=== PATIENT | female | born 1975 | race Caucasian/White ===

== ENCOUNTER → 2017-07-10 11:12 | Outpatient (CLI) | payer MEDICARE, SELFPAY ==
[2017-07-10 12:04] LABS: Absolute Lymphocyte Count 1.81 X10^3/ul (0.83-4.51); Absolute Neutrophil Count 4.5 X10^3/uL (2.0-7.7); Basophil# 0.02 X10^3/uL; Basophil% 0.3 % (0-1); Eosinophil# 0.09 X10^3/uL; Eosinophils% 1.3 % (0-5); Hematocrit 42.6 % (37-47); Hemoglobin 14.5 g/dl (12.0-15.0); Lymphocyte # 1.81 X10^3/ul (4.0); Lymphocyte % 26.2 % (19-41); Mean Corpuscular Hgb 31.9 pg (27.0-32.0); Mean Corpuscular Volume 93.6 fL (81-99); Mean Platelet Vol. 9.9 fl (6.2-12.0); Monocyte% 7.2 % (0-10); Neutrophil # 4.45 X10^3/uL (2.7-7.7); Neutrophil % 64.4 % (47-70); Platelet Count 217 K/mm3 (150-450); RBC Distribution Width CV 12.8 % (11.6-14.6); RBC Distribution Width SD 42.8 fl (35.1-43.9); Red Blood Count 4.55 M/mm3 (4.2-5.4); White Blood Count 6.9 K/mm3 (4.4-11.0)
[2017-07-10 12:06] LABS: POSITIVE COUNT NO; POSITIVE DIFFERENTIAL NO; POSITIVE MORPHOLOGY NO
[2017-07-10 12:23] LABS: ALB/GLOB Ratio 0.8 RATIO (0.9-2.4); AST(SGOT) 31 U/L (15-37); Alanine Aminotransfer ALT/SGPT 88 U/L (13-56); Albumin, Serum 3.6 g/dL (3.2-5.0); Alkaline Phosphatase 139 U/L (45-117); Amylase 40 U/L (25-115); Anion Gap 8 (5-15); BUN 12 mg/dL (7-18); BUN/Creat Ratio 12.3 RATIO (10-20); Chloride 108 mmol/L (98-107); Creatinine, Serum 0.97 mg/dL (0.55-1.02); EST Glomerular Filtration Rate 66 mL/min (>60); Est Glom Filt Rate - Afr Amer 80 mL/min (>60); Globulin 4.3 g/dL (2.2-4.2); Glucose 89 mg/dL (70-110); Lipase 192 U/L (73-393); Potassium 3.6 mmol/L (3.5-5.1); Protein, Total 7.9 g/dL (6.4-8.2); Sodium Level 141 mmol/L (136-145)
== END ==
PROVIDERS: Family Provider Family Medicine; PCP Family Medicine; Visit Provider Family Medicine
DX: R10.11 Right upper quadrant pain (principal)
CPT/HCPCS: 80053; 82150; 83690; 85025

== ENCOUNTER → 2017-07-17 17:24 | Outpatient (CLI) | payer MEDICARE, SELFPAY ==
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
== END ==
PROVIDERS: Family Provider Family Medicine; PCP Family Medicine; Visit Provider Family Medicine
DX: R10.11 Right upper quadrant pain (principal)
CPT/HCPCS: 74160; 74177; Q9967

== ENCOUNTER 2017-07-25 10:00 | Outpatient (RCR) | payer MEDICARE, SELFPAY ==
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
--- NOTE | 2017-08-30 08:17 | HP.PTDCNRP_ITS ---
HP - Discharge Summary (1) - Patient Information KAYLIN LOBO was seen in my office for initial evaluation on 07/10/17. The following Plan of Care was established for this patient: Initial Frequency: 2x /Week Initial Duration: 4 Weeks - Anticipated Interventions Patient/Client Instruction: Educate patient on: Condition, Plan of Care For the Purpose of:: To decrease pain, To increase ROM, To improve muscle performance and motor function, To improve ability to perform ADL's, To increase tolerance to activity/condition/position, To improve ability of physical actions for home/community/work/leisure, To improve gait and locomotor functions, To improve health of tissue, To decrease soft tissue restriction, To increase flexibility/ROM, To improve ability to perform tasks related to life management Therapeutic Exercise to Include: Strength training, Body mechanics, Postural training, Flexibilty training, Dynamic Lumbar Stabilization For the Purpose of:: To decrease pain, To increase ROM, To improve muscle performance and motor function, To increase tolerance to activity/condition/ position, To improve performance and independence with ADL's, To improve ability of physical actions for home/community/work/leisure, To improve health of tissue, To decrease soft tissue restriction, To increase flexibility/ROM, To assume or resume ADL's, To improve ability to perform tasks related to life management TENS: Yes IF ES: Yes Cryotherapy (ice pack, ice massage): Yes Thermo therapy (hot pack): Yes Ultrasound (thermal/non thermal): Yes For the Purpose of:: To decrease swelling/inflammation, To increase ROM, To improve nutrient delivery to tissue, To increase oxygenation perfusion, To improve health of tissue, To decrease soft tissue restriction This patient was last seen in our office 08/04/17. Pertinent comments regarding their Physical therapy will appear below: Patient seen for PT for lumbar pain ficusing on modalities and posture. Patient had to be d/c due to undergoing hernia surgery. At this point I will be discontinuing this patient from physical therapy. I would be happy to see this patient again in the future if found appropriate by the physician. Thank you! Elton Nixon, PT,
== END 2017-07-25 19:00 | disposition home or self-care (01) ==
LOC: PT 10:00
PROVIDERS: Family Provider Family Medicine; PCP Family Medicine; Visit Provider Orthopaedic Surgery
DX: M48.061 Spinal stenosis, lumbar region without neurogenic claudication (principal); M54.5 Low back pain
CPT/HCPCS: 80053; 82150; 83690; 85025; 97014; 97035; 97162; G0283

== ENCOUNTER 2017-08-02 10:50 | Day surgery (SDC) | payer MEDICARE, SELFPAY ==
[2017-08-02] VITALS (7 sets, daily range): BP systolic 98–114; BP diastolic 56–89; PULSE 63–75; RESP 16–18; TEMP 36.2–36.6; O2SAT 94–100; BMI 34.1
[2017-08-02] MEDS: Clindamycin 900 MG/50 ML BAG 75 MG IV (12:34)
--- NOTE | 2017-08-02 13:40 | DCINST_ITS ---
Discharge Diet: Light diet - advance as tolerated Discharge Activity: Return to Normal Activity, May Not Drive - for 2-3 days or while taking narcotic pain meds., May Shower - with the bandage in place 1-2 days after surgery. Lifting Restrictions: 20 pounds for 4 weeks. Additional Activity Instructions:: Climbing stairs is fine, walking is encouraged. Sitting in bed may be uncomfortable. Do not drive, work heavy equipment of sign legal documents for 24 hours. Pain medications may cause nausea, you should typically eat light foods as you take your pain medications. Pain medications may also cause constipation. If you have difficulty with this , discuss with your doctor. Call your doctor if your incision/area has: Continuous Slow Oozing, Sudden Increased Bleeding, Increased Pain/ Swelling, Increased Redness, Foul Smelling Discharge Call your doctor if you observe: Fever of 101 or Higher Suture Line Care: Avoid Pulling/Pushing, Avoid Pinching/Bending Change Dressing in (Days):: 3 - Leave steri-strips for 1 week. May protect with a guaze bandaid. Cleanse incision/area with: Keep Dressing Clean & Dry Allergies/Adverse Reactions: Allergies amoxicillin Allergy (Mild, Verified 07/31/17 14:16) unknown sulfamethoxazole [From Bactrim] Allergy (Mild, Verified 07/31/17 14:16) unknown trimethoprim [From Bactrim] Allergy (Mild, Verified 07/31/17 14:16) unknown aripiprazole [From Abilify] Allergy (Verified 07/31/17 14:16) Unknown citalopram hydrobromide [From Celexa] Allergy (Verified 07/31/17 14:16) Unknown codeine Allergy (Verified 07/31/17 14:16) Other BACK PAIN doxepin Allergy (Verified 07/31/17 14:16) Pain in joints duloxetine HCl [From Cymbalta] Allergy (Verified 07/31/17 14:16) Shortness of breath lamotrigine Allergy (Verified 07/31/17 14:16) Itching Penicillins Allergy (Verified 07/31/17 14:16) Shortness of breath venlafaxine HCl [From Effexor] Allergy (Verified 07/31/17 14:16) Other LETHARGY Medications to take at Discharge Bupropion HCl [Bupropion Xl] 300 mg PO DAILY 12/24/16 Buspirone HCl 30 mg PO BID 12/24/16 Cholecalciferol (Vitamin D3) [Vitamin D3] 5,000 unit PO DAILY 12/24/16 Clonazepam [Klonopin] 0.5 mg PO BID 12/24/16 Lisinopril [Prinivil] 10 mg PO DAILY 12/24/16 Montelukast [Singulair] 10 mg PO DAILY 12/24/16 Omeprazole [Prilosec] 40 mg PO DAILY 12/24/16 Tizanidine HCl [Zanaflex] 4 mg PO QHS 12/24/16 Pentosan Polysulfate Sodium [Elmiron] 100 mg PO TID 04/19/17 meloxicam 15 mg tablet 15 mg PO QDAY 07/24/17 Oxycodone HCl/Acetaminophen [Percocet 5/325] 1 - 2 tablet PO Q4H PRN PRN 7 Days #40 tablet 08/02/17 The following prescriptions were given: Oxycodone HCl/Acetaminophen [Percocet 5/325] 1 - 2 tablet PO Q4H PRN PRN 7 Days #40 tablet PRN Reason: Pain Primary Care Physician: Andrae Larson MD [Primary Care Provider] - Please Follow Up With: Kuldip Murcia MD When: call tomorrow to make 2 week follow up appt [phone]
--- NOTE | 2017-08-02 13:40 | PCM.OPRPT ---
Problem List (1) Incisional hernia Status: Acute Qualifiers: Obstruction and gangrene presence: without obstruction or gangrene Qualified Code(s): K43.2 - Incisional hernia without obstruction or gangrene; K43.91 - Incisional hernia, without obstruction or gangrene Report of Operation Date of Procedure: 08/02/17 Pre-Operative Diagnosis: Incisional hernia of the right upper quadrant Post-Operative Diagnosis: Same Surgery/Procedure Performed:: Ventral incisional hernia repair with mesh Specimen's removed: None Description of Procedure: The patient was brought back to the operating room and general anesthesia was induced. The abdomen was prepped and draped in usual sterile fashion. The ultrasound was used in the right upper quadrant to localize the fascial defect. An incision was made over this area and deepened to the hernia defect. The hernia sac was opened and all contents were freed up circumferentially. Next the hernia defect was identified and cleared of the surrounding fat anterior to the fascia. Next the hernia defect was closed with 3 [id number] 0 PDS sutures. Next a piece of polypropylene mesh was placed over the repaired hernia and trimmed. The 2 ends of the polypropylene mesh were sutured on opposite sides of the hernia repair and next the tail the suture was used to run the suture along each side to approximate the mesh to the fascia. Each suture was tied to the tail of the opposite suture. Next 2 interrupted 0 PDS sutures were used to tack the middle the mesh down to the hernia defect. Next the cavity was irrigated and suctioned. The deep tissue was closed with interrupted 3-0 Vicryl sutures. The incision was then anesthetized with Marcaine. The incision was closed with interrupted 3-0 Vicryl sutures and a running 4-0 Monocryl suture and Steri-Strips and bandages. The patient was taken to PACU in stable condition and tolerated the procedure well. Grafts/Implants Used: 8 x 13 cm polypropylene mesh
[2017-08-02] MEDS: Bupivacaine 0.25% 30 ML Vial (13:41)
== END 2017-08-02 15:25 | disposition home or self-care (01) ==
LOC: SDC 10:50 → AC 10:55
PROVIDERS: Family Provider Family Medicine; PCP Family Medicine; Visit Provider Surgery
PROC: (CPT 49560; principal; 2017-08-02 12:15)
DX: K43.2 Incisional hernia without obstruction or gangrene (principal); I10 Essential (primary) hypertension; K21.9 Gastro-esophageal reflux disease without esophagitis; M79.7 Fibromyalgia; Z87.891 Personal history of nicotine dependence
CPT/HCPCS: 00832; 49560; 49568; J7120; C1781

== ENCOUNTER → 2017-11-09 14:10 | Outpatient (CLI) | payer MEDICARE, SELFPAY ==
[2017-11-09 15:43] LABS: ALB/GLOB Ratio 0.8 RATIO (0.9-2.4); AST(SGOT) 20 U/L (15-37); Alanine Aminotransfer ALT/SGPT 50 U/L (13-56); Albumin, Serum 3.4 g/dL (3.2-5.0); Alkaline Phosphatase 111 U/L (45-117); Anion Gap 9 (5-15); BUN 13 mg/dL (7-18); BUN/Creat Ratio 12.5 RATIO (10-20); Calcium,Total 8.7 mg/dL (8.5-10.1); Chloride 107 mmol/L (98-107); Creatinine, Serum 1.04 mg/dL (0.55-1.02); EST Glomerular Filtration Rate 61 mL/min (>60); Est Glom Filt Rate - Afr Amer 74 mL/min (>60); Globulin 4.1 g/dL (2.2-4.2); Glucose 101 mg/dL (74-106); Potassium 4.3 mmol/L (3.5-5.1); Protein, Total 7.5 g/dL (6.4-8.2); Sodium Level 139 mmol/L (136-145)
== END ==
PROVIDERS: Visit Provider Family Medicine
DX: R79.89 Other specified abnormal findings of blood chemistry (principal)
CPT/HCPCS: 36415; 80053

== ENCOUNTER → 2018-04-12 10:15 | Outpatient (CLI) | payer MEDICARE, SELFPAY ==
[2018-04-12 12:26] LABS: Cholesterol 189 mg/dL (200); Estradiol 63.1 pg/mL; Follicle Stimulating Hormone 28.3 mIU/mL; Free T3 2.6 pg/mL (2.18-3.98); High Density Lipoprotein 53 mg/dL; Prolactin 14.9 ng/mL; T4 Free Direct 0.99 ng/dL (0.76-1.46); Thyroid Stim Hormone (TSH) 3.25 uIU/mL (0.358-3.74); Triglycerides 103 mg/dL; Very Low Density Lipoprotein 21 mg/dL (5-40)
[2018-04-13 06:07] LABS: DHEA Sulfate 19.8 ug/dL (57.3-279.2)
[2018-04-13 11:25] LABS: Sex Hormone-binding Globulin 158.7 nmol/L (24.6-122.0)
[2018-04-16 13:30] LABS: HPV APTIMA, High Risk Negative (Negative)
== END ==
PROVIDERS: Obstetrics & Gynecology; Family Provider Family Medicine; PCP Family Medicine; Referring Provider Family Medicine; Visit Provider Family Medicine
DX: R53.83 Other fatigue (principal); R68.82 Decreased libido; Z12.4 Encounter for screening for malignant neoplasm of cervix
CPT/HCPCS: 36415; 80061; 82533; 82627; 82670; 83001; 84146; 84270; 84403; 84439; 84443; 84481; 87624; 88175; 82626; G0145

== ENCOUNTER → 2018-04-20 09:32 | Outpatient (CLI) | payer MEDICARE, SELFPAY ==
[2018-04-20 15:20] LABS: ALB/GLOB Ratio 1.2 RATIO (0.9-2.4); AST(SGOT) 17 U/L (15-37); Alanine Aminotransfer ALT/SGPT 37 U/L (13-56); Albumin, Serum 3.9 g/dL (3.2-5.0); Alkaline Phosphatase 90 U/L (45-117); Anion Gap 5 (5-15); BUN 14 mg/dL (7-18); BUN/Creat Ratio 16.9 RATIO (10-20); Chloride 106 mmol/L (98-107); Creatinine, Serum 0.83 mg/dL (0.55-1.02); EST Glomerular Filtration Rate 80 mL/min (>60); Est Glom Filt Rate - Afr Amer 97 mL/min (>60); Globulin 3.3 g/dL (2.2-4.2); Glucose 83 mg/dL (74-106); Potassium 3.8 mmol/L (3.5-5.1); Protein, Total 7.2 g/dL (6.4-8.2); Sodium Level 140 mmol/L (136-145)
[2018-04-20 15:32] LABS: Vitamin D,25 Hydroxy 55.2 ng/mL (29.95-100.01)
[2018-04-24 11:48] LABS: Thyroglobulin Antibody < 1.0 IU/mL (0.0-0.9); Thyroid Peroxidase AB 15 IU/mL (0-34)
== END ==
PROVIDERS: Visit Provider Obstetrics & Gynecology
DX: E55.9 Vitamin D deficiency, unspecified (principal); R68.82 Decreased libido
CPT/HCPCS: 36415; 80053; 82306; 86376; 86800

== ENCOUNTER 2018-05-11 08:42 | Day surgery (SDC) | payer MEDICARE, SELFPAY ==
[2018-05-11 09:23] VITALS: BP 112/66; PULSE 62; RESP 16; TEMP 37.2; O2SAT 98; BMI 28.3
[2018-05-11 10:15] VITALS: BP 107/78; BP 112/66; PULSE 75; RESP 16; TEMP 36.7; O2SAT 95
--- NOTE | 2018-05-11 10:16 | OP.ENDO_ITS ---
Patient Name: Emma Prescott Procedure Date: 05/11/2018 9:47 AM Date of : 1975 Age: 43 Procedure: Colonoscopy Indications: Screening in patient at increased risk: Family history of 1st-degree relative with colorectal cancer before age 60 years, Patients brother. Providers: Kudlip Murcia MD Medicines: Monitored Anesthesia Care Patient Profile: This is a 43 year old female. Refer to note in patient chart for documentation of history and physical. Last Colonoscopy: none. The patient's first colonoscopy is today. Complications: No immediate complications. Procedure: Pre-Anesthesia Assessment: - Prior to the procedure, a History and Physical was performed, and patient medications and allergies were reviewed. The patient's tolerance of previous anesthesia was also reviewed. The risks and benefits of the procedure and the sedation options and risks were discussed with the patient. All questions were answered, and informed consent was obtained. Prior Anticoagulants: The patient has taken no previous anticoagulant or antiplatelet agents. ASA Grade Assessment: II - A patient with mild systemic disease. After reviewing the risks and benefits, the patient was deemed in satisfactory condition to undergo the procedure. After I obtained informed consent, the scope was passed under direct vision. Throughout the procedure, the patient's blood pressure, pulse, and oxygen saturations were monitored continuously. The pediatric colonoscope was introduced through the anus and advanced to the cecum, identified by appendiceal orifice and ileocecal valve. The colonoscopy was performed without difficulty. The patient tolerated the procedure well. The quality of the bowel preparation was good. Scope In: 9:58:33 AM Scope Withdrawal Time 0 hours 6 minutes 4 seconds Scope Out: 10:10:47 AM Total Procedure Duration Time 0 hours 12 minutes 14 seconds Findings: The entire examined colon appeared normal on direct and retroflexion views. Impression: - The entire examined colon is normal on direct and retroflexion views. - No specimens collected. Recommendation: - Discharge patient to home. - Resume previous diet. - Continue present medications. - Repeat colonoscopy in 5 years for screening purposes. Procedure Code(s): --- Professional --- G0105, Colorectal cancer screening; colonoscopy on individual at high risk Diagnosis Code(s): --- Professional --- Z80.0, Family history of malignant neoplasm of digestive organs CPT copyright 2017 [employer]. All rights reserved. The codes documented in this report are preliminary and upon him coder review may be revised to meet current compliance requirements. Kuldip Murcia MD 05/11/2018 10:15:55 AM This report has been signed electronically. Number of Addenda: 0 Note Initiated On: 05/11/2018 9:47 AM
[2018-05-11 10:20] VITALS: BP 112/66; BP 92/64; PULSE 70; RESP 16; O2SAT 96
[2018-05-11 10:25] VITALS: BP 112/66; BP 96/69; PULSE 67; RESP 16; O2SAT 98
[2018-05-11 10:30] VITALS: BP 102/70; BP 112/66; PULSE 74; RESP 16; TEMP 36.8; O2SAT 100
[2018-05-11 10:51] VITALS: BP 112/66
--- OUTSIDE RECORDS SUMMARY | 2018-07-06 03:23 | XMS RPT_ITS ---
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 Negative Normal HPV APTIMA, Negative HR Result Comment: This test detects fourteen high-risk HPV types (16/18/31/33/35/39/45/ 51/52/56/58/59/66/68) without differentiation. Performed at: WB - [facility] [address] [place], [place] [id number] [employer] Grower: Cayla Bailey MD, Phone: [phone] Performed at: =G - [facility] [address] [place], [place] [id number] [employer] Grower: Cayla Bailey MD, Phone: [phone] Performed By: #### L7400.0280 #### [facility] (refer to report for specific site) refer to report for address and phone number COMPREHENSIVE METABOLIC Collected: 11/09/2017 Status: F Source: [place] [place] 2:12 PM [facility] REPOSITORY Order Comment: Order Date: 11/09/17 Order Info: 0786-1 - CMP TYPE CODE TESTS RESULT OUT OF RANGE REFERENCE UNITS LAB L501.0100 74-106 mg/dL Normal GLU 101 Result Comment: Fasting Glucose result from 100 to 125 mg/dL suggests IMPAIRED HOMEOSTASIS per A.D.A. criteria. Please note revised GLUCOSE reference range effective 2017. LAB L501.1000 7-18 mg/dL Normal BUN 13 LAB L501.1100 0.55-1.02 mg/dL High CREAT,SERUM 1.04 Result Comment: The validity of the calculated GFR AND GFRAA in patients over 70 years has not been determined. Clinical correlation is essential. LAB L501.1110 >60 mL/min Normal EST GFR 61 Result Comment: Non- GFR Calc LAB L501.1115 >60 mL/min Normal EST GFR - AA 74 Result Comment: GFR Calc LAB L501.1300 10-20 RATIO Normal BUN/CRE 12.5 LAB L501.1500 6.4-8.2 g/dL T Normal PROT 7.5 LAB L501.1800 3.2-5.0 g/dL Normal ALB 3.4 LAB L501.1950 2.2-4.2 g/dL Normal GLOB 4.1 LAB L501.2000 0.9-2.4 RATIO Low A/G 0.8 LAB L501.2200 8.5-10.1 mg/dL CA Normal 8.7 LAB L501.4100 15-37 U/L Normal AST 20 LAB L501.4305 45-117 U/L Normal ALK P 111 LAB L501.4405 13-56 U/L Normal ALT 50 LAB L501.4600 0.20-1.00 mg/dL T Normal BILI 0.30 LAB L501.5300 136-145 mmol/L NA Normal 139 LAB L501.5600 3.5-5.1 mmol/L K Normal 4.3 LAB L501.5900 98-107 mmol/L CL Normal 107 LAB L501.6100 21.0-32.0 mmol/L Normal CO2 23.0 LAB L501.6200 5-15 Normal GAP 9 Performed By: #### L500.4050 #### [facility] [address] [place], [address] ORTHOPEDIC VISIT Observed: 09/10/2017 Status: F Source: [place] REPORT 12:26 PM [facility] REPOSITORY [facility] [address] [place] [address] OFFICE VISIT Date of Service: 09/05/17 MR#: [id number] Acct: [id number] Name: EMMA PRESCOTT Rep #: [id number] : 1975 Provider: Kerri Jiménez MD Age/Sex: 42/F Location: [facility] Status: Signed Intake Intake Visit Reasons: LOW BACK Is patient in pain?: Yes Allergies amoxicillin Allergy (Mild, Verified 07/31/17 14:16) unknown sulfamethoxazole [From Bactrim] Allergy (Mild, Verified 07/31/17 14:16) unknown trimethoprim [From Bactrim] Allergy (Mild, Verified 07/31/17 14:16) unknown aripiprazole [From Abilify] Allergy (Verified 07/31/17 14:16) Unknown citalopram hydrobromide [From Celexa] Allergy (Verified 07/31/17 14:16) Unknown codeine Allergy (Verified 07/31/17 14:16) Other doxepin Allergy (Verified 07/31/17 14:16) Pain in joints duloxetine HCl [From Cymbalta] Allergy (Verified 07/31/17 14:16) Shortness of breath lamotrigine Allergy (Verified 07/31/17 14:16) Itching Penicillins Allergy (Verified 07/31/17 14:16) Shortness of breath venlafaxine HCl [From Effexor] Allergy (Verified 07/31/17 14:16) Other Medications Bupropion HCl [Bupropion Xl] 300 mg PO DAILY 12/24/16 [History Confirmed 07/31/17] Buspirone HCl 30 mg PO BID 12/24/16 [History Confirmed 07/31/17] Cholecalciferol (Vitamin D3) [Vitamin D3] 5,000 unit PO DAILY 12/24/16 [History Confirmed 07/31/17] Clonazepam [Klonopin] 0.5 mg PO BID 12/24/16 [History Confirmed 07/31/17] Lisinopril [Prinivil] 10 mg PO DAILY 12/24/16 [History Confirmed 07/31/17] Montelukast [Singulair] 10 mg PO DAILY 12/24/16 [History Confirmed 07/31/17] Omeprazole [Prilosec] 40 mg PO DAILY 12/24/16 [History Confirmed 07/31/17] Tizanidine HCl [Zanaflex] 4 mg PO QHS 12/24/16 [History Confirmed 07/31/17] Pentosan Polysulfate Sodium [Elmiron] 100 mg PO TID 04/19/17 [History Confirmed 07/31/17] meloxicam 15 mg tablet 15 mg PO QDAY 07/24/17 [History Confirmed 07/31/17] Oxycodone HCl/Acetaminophen [Percocet 5/325] 1 - 2 tab PO Q4H PRN PRN 7 Days #40 tab 08/02/17 [Rx] PFSH Medical History Fibromyalgia (Chronic) Anxiety, generalized (Chronic) Choledocholithiasis with acute cholecystitis with obstruction (Acute) Gallstone pancreatitis (Acute) Anxiety (Acute) Surgical History S/P carpal tunnel release (Inactive) gallbladder removed (Inactive) h/o left knee scope (Inactive) trigger thumb release (Inactive) Family History Mother Arthritis Brother Cerebral palsy Other Cancer Heart disease Social History Smoking Status: Former smoker alcohol intake: never HPI LOW BACK: Details: EMMA PRESCOTT returns today for a followup on her lumbar pain and abdominal pain. She underwent an abdominal mesh surgery since her last visit in 07/04/2017. She states this helped her right abdominal pain. She was walking up to 2 miles prior to her abdominal surgery. She is gradually recuperating. She did not start physical therapy. She is on medication for her bladder cystitis, which she states will be for about 6 months. Her pain is 80% back pain and 20% bilateral anterolateral thigh and calf pain and numbness. She has chronic bilateral knee pain. Her pain is worse with everything and improved with not moving. Patient had a nerve block L2-3-4-5-S1, 2 weeks ago which was helpful. She notes that she has an appointment with Dr Mayers tomorrow. ROS Const Reports system reviewed and no additional complaints, except as docu Eyes Reports system reviewed and no additional complaints, except as docu ENT Reports system reviewed and no additional complaints, except as docu Card Reports system reviewed and no additional complaints, except as docu Resp Reports system reviewed and no additional complaints, except as docu GI Reports system reviewed and no additional complaints, except as docu Reports system reviewed and no additional complaints, except as docu Musc Reports back pain, Reports radiating pain into limb, Reports numbness Skin/Breast Reports system reviewed and no additional complaints, except as docu Neuro Yes system reviewed and no additional complaints, except as docu, Yes numbness Psych Reports system reviewed and no additional complaints, except as docu Endo Reports system reviewed and no additional complaints, except as docu Ortho Exam Spine Neuro: Yes Straight Leg Raise General: alert, oriented x3 Capillary Refill <2sec: Yes Gait: normal gait, other (able to stand on heels and toes) Motor: strength 5/5 throughout Sensory Exam: no sensory deficits noted DTR's: Rt Patellar: 2+, Lt Patellar: 2+, Rt Ankle: 2+, Lt Ankle: 2+ Coordination: Romberg test normal SPINE TESTING CERVICAL THORACIC LUMBAR SLR: Negative Musculoskeletal General: Yes normal gait Thoracic/Lumbar Spine: straight leg raise negative bilaterally, pain with thoraco-lumbar ROM, thoraco-lumbar ROM limited, paraspinal tenderness, other (hyperesthesia of lumbar spine) Strength 0=absent - 5=normal R Hip Flexor (L1-3): 5, L Hip Flexor (L1-3): 5, R Quadriceps (L2-4): 5, L Quadriceps (L2-4): 5, R Anterior Tibialis (L4-5): 5, L Anterior Tibialis (L4-5): 5, R Hamstrings (L5-S1): 5, L Hamstrings (L5-S1): 5, GS (S1): 5, L GS (S1): 5, R Peroneals (S1): 5, L Peroneals (S1): 5 Assessment AND Plan Problems 1. Chronic bilateral low back pain without sciatica M54.5; G89.29 Plan I/R/P: 1. back pain 2. bilateral leg pain, nondermatomal 3. abdominal pain 4. bladder cystitis Ms. Prescott presents with back pain and nondermatomal leg pain. She has had improvement after her facet injections. Defer to continued pain management with Dr. Mayers. Her symptoms are not consistent with neurogenic claudicaiton. Surgical intervention is not recommended at this time. Follow up as needed. Plan of care discussed. All questions answered. She is in understanding. Coding Level of Care Code Off vis,est,level 4 Diagnoses Chronic bilateral low back pain without sciatica M54.5; G89.29 Back pain laterality: bilateral Back pain location: low back pain Chronicity: chronic Sciatica presence: without sciatica 09/10/17 1226 <Electronically signed by Kerri Jiménez MD> Date Kerri Jiménez MD Cosigner Signature: Date (if applicable) CC: SURGERY VISIT REPORT Observed: 08/21/2017 Status: F Source: [place] 2:08 PM [facility] [address] [place] [address] OFFICE VISIT Date of Service: 08/21/17 MR#: [id number] Acct: [id number] Name: EMMA PRESCOTT Rep #: [id number] : 1975 Provider: Kuldip Murcia MD Age/Sex: 42/F Location: [facility] Status: Signed Intake Intake Visit Reasons: Hernia Surgery TC 08/02 Allergies amoxicillin Allergy (Mild, Verified 07/31/17 14:16) unknown sulfamethoxazole [From Bactrim] Allergy (Mild, Verified 07/31/17 14:16) unknown trimethoprim [From Bactrim] Allergy (Mild, Verified 07/31/17 14:16) unknown aripiprazole [From Abilify] Allergy (Verified 07/31/17 14:16) Unknown citalopram hydrobromide [From Celexa] Allergy (Verified 07/31/17 14:16) Unknown codeine Allergy (Verified 07/31/17 14:16) Other doxepin Allergy (Verified 07/31/17 14:16) Pain in joints duloxetine HCl [From Cymbalta] Allergy (Verified 07/31/17 14:16) Shortness of breath lamotrigine Allergy (Verified 07/31/17 14:16) Itching Penicillins Allergy (Verified 07/31/17 14:16) Shortness of breath venlafaxine HCl [From Effexor] Allergy (Verified 07/31/17 14:16) Other Medications Bupropion HCl [Bupropion Xl] 300 mg PO DAILY 12/24/16 [History Confirmed 07/31/17] Buspirone HCl 30 mg PO BID 12/24/16 [History Confirmed 07/31/17] Cholecalciferol (Vitamin D3) [Vitamin D3] 5,000 unit PO DAILY 12/24/16 [History Confirmed 07/31/17] Clonazepam [Klonopin] 0.5 mg PO BID 12/24/16 [History Confirmed 07/31/17] Lisinopril [Prinivil] 10 mg PO DAILY 12/24/16 [History Confirmed 07/31/17] Montelukast [Singulair] 10 mg PO DAILY 12/24/16 [History Confirmed 07/31/17] Omeprazole [Prilosec] 40 mg PO DAILY 12/24/16 [History Confirmed 07/31/17] Tizanidine HCl [Zanaflex] 4 mg PO QHS 12/24/16 [History Confirmed 07/31/17] Pentosan Polysulfate Sodium [Elmiron] 100 mg PO TID 04/19/17 [History Confirmed 07/31/17] meloxicam 15 mg tablet 15 mg PO QDAY 07/24/17 [History Confirmed 07/31/17] Oxycodone HCl/Acetaminophen [Percocet 5/325] 1 - 2 tab PO Q4H PRN PRN 7 Days #40 tab 08/02/17 [Rx] PFSH Medical History Fibromyalgia (Chronic) Anxiety, generalized (Chronic) Choledocholithiasis with acute cholecystitis with obstruction (Acute) Gallstone pancreatitis (Acute) Anxiety (Acute) Surgical History S/P carpal tunnel release (Inactive) gallbladder removed (Inactive) h/o left knee scope (Inactive) trigger thumb release (Inactive) Family History Mother Arthritis Brother Cerebral palsy Other Cancer Heart disease Social History Smoking Status: Former smoker alcohol intake: never HPI HPI HPI: EMMA PRESCOTT, is a 42 F who presents to the office today for follow-up after right upper quadrant incisional hernia repair. The patient reports he was lifting something heavy and experienced some back pain which radiated down to the right lower quadrant around to the front. She has no pain in the area of her hernia repair. She says the pain she was having before is gone. Exam Resp Auscultation: clear to auscultation bilaterally GI Inspection: normal to inspection Other: Incision is clean dry and intact with no sign of recurrence of hernia. Assessment AND Plan Problems 1. Incisional hernia, without obstruction or gangrene K43.2 Plan 1. Patient is here for follow-up status post right upper quadrant incisional hernia repair with mesh. The patient reports no pain in the area of the hernia incision and the incision is clean and dry with no signs of infection. She is having pain that starts in her right lower back and radiates around to the front. I sling this is likely back related and not related to her surgery. She says that her pain that was at the hernia is now resolved. 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 2. No lifting over 20 pounds for 2 weeks and then activity as tolerated from my standpoint. Kuldip Murcia MD Pager: [facility] [address] [place] [address] Office: Coding Level of Care Code Global Post Op Diagnoses Incisional hernia, without obstruction or gangrene K43.2 Obstruction and gangrene presence: without obstruction or gangrene 08/21/17 1408 <Electronically signed by Kuldip Murcia MD> Date Kuldip Murcia MD Cosign Signature: Date (if applicable) CC: Miguel Larson MD OPERATIVE REPORT Observed: 08/02/2017 Status: F Source: [place] 1:43 PM [facility] REPOSITORY [facility] Medical Records Department [address] [place] [address] Operative Report 08/02/17 1340 MR#: [id number] Acct: [id number] Name: EMMA PRESCOTT Rep #: [id number] : 1975 42 From: Kuldip Murcia MD PCP: Miguel Larson MD Status: REG SD Y Location: [place] [address] Problem List (1) Incisional hernia Status: Acute Qualifiers: Obstruction and gangrene presence: without obstruction or gangrene Qualified Code(s): K43.2 - Incisional hernia without obstruction or gangrene; K43.91 - Incisional hernia, without obstruction or gangrene Report of Operation Date of Procedure: 08/02/17 Pre-Operative Diagnosis: Incisional hernia of the right upper quadrant Post-Operative Diagnosis: Same Surgery/Procedure Performed:: Ventral incisional hernia repair with mesh Specimen's removed: None Description of Procedure: The patient was brought back to the operating room and general anesthesia was induced. The abdomen was prepped and draped in usual sterile fashion. The ultrasound was used in the right upper quadrant to localize the fascial defect. An incision was made over this area and deepened to the hernia defect. The hernia sac was opened and all contents were freed up circumferentially. Next the hernia defect was identified and cleared of the surrounding fat anterior to the fascia. Next the hernia defect was closed with 3 [id number] 0 PDS sutures. Next a piece of polypropylene mesh was placed over the repaired hernia and trimmed. The 2 ends of the polypropylene mesh were sutured on opposite sides of the hernia repair and next the tail the suture was used to run the suture along each side to approximate the mesh to the fascia. Each suture was tied to the tail of the opposite suture. Next 2 interrupted 0 PDS sutures were used to tack the middle the mesh down to the hernia defect. Next the cavity was irrigated and suctioned. The deep tissue was closed with interrupted 3-0 Vicryl sutures. The incision was then anesthetized with Marcaine. The incision was closed with interrupted 3-0 Vicryl sutures and a running 4-0 Monocryl suture and Steri- Strips and bandages. The patient was taken to PACU in stable condition and tolerated the procedure well. Grafts/Implants Used: 8 x 13 cm polypropylene mesh 08/02/17 1343 <Electronically signed by Kuldip Murcia MD> Date Kuldip Murcia MD CC: Kuldip Murcia MD; Miguel Larson MD Signed DISCHARGE INSTRUCTION Observed: 08/02/2017 Status: F Source: [place] 1:40 PM [facility] REPOSITORY [facility] Medical Records Department [address] [place] [address] Instructions for Home/Discharge Instructions 08/02/17 1338 MR#: [id number] Acct: [id number] Name: EMMA PRESCOTT Rep #: [id number] : 1975 42 From: Kuldip Murcia MD PCP: Miguel Larson MD Status: REG [facility] Discharge Diet: Light diet - advance as tolerated Discharge Activity: Return to Normal Activity, May Not Drive - for 2-3 days or while taking narcotic pain meds., May Shower - with the bandage in place 1-2 days after surgery. Lifting Restrictions: 20 pounds for 4 weeks. Additional Activity Instructions:: Climbing stairs is fine, walking is encouraged. Sitting in bed may be uncomfortable. Do not drive, work heavy equipment of sign legal documents for 24 hours. Pain medications may cause nausea, you should typically eat light foods as you take your pain medications. Pain medications may also cause constipation. If you have difficulty with this, discuss with your doctor. Call your doctor if your incision/area has: Continuous Slow Oozing, Sudden Increased Bleeding, Increased Pain/ Swelling, Increased Redness, Foul Smelling Discharge Call your doctor if you observe: Fever of 101 or Higher Suture Line Care: Avoid Pulling/Pushing, Avoid Pinching/Bending Change Dressing in (Days):: 3 - Leave steri-strips for 1 week. May protect with a guaze bandaid. Cleanse incision/area with: Keep Dressing Clean AND Dry Allergies/Adverse Reactions: Allergies amoxicillin Allergy (Mild, Verified 07/31/17 14:16) unknown sulfamethoxazole [From Bactrim] Allergy (Mild, Verified 07/31/17 14:16) unknown trimethoprim [From Bactrim] Allergy (Mild, Verified 07/31/17 14:16) unknown aripiprazole [From Abilify] Allergy (Verified 07/31/17 14:16) Unknown citalopram hydrobromide [From Celexa] Allergy (Verified 07/31/17 14:16) Unknown codeine Allergy (Verified 07/31/17 14:16) Other BACK PAIN doxepin Allergy (Verified 07/31/17 14:16) Pain in joints duloxetine HCl [From Cymbalta] Allergy (Verified 07/31/17 14:16) Shortness of breath lamotrigine Allergy (Verified 07/31/17 14:16) Itching Penicillins Allergy (Verified 07/31/17 14:16) Shortness of breath venlafaxine HCl [From Effexor] Allergy (Verified 07/31/17 14:16) Other LETHARGY Medications to take at Discharge Bupropion HCl [Bupropion Xl] 300 mg PO DAILY 12/24/16 Buspirone HCl 30 mg PO BID 12/24/16 Cholecalciferol (Vitamin D3) [Vitamin D3] 5,000 unit PO DAILY 12/24/16 Clonazepam [Klonopin] 0.5 mg PO BID 12/24/16 Lisinopril [Prinivil] 10 mg PO DAILY 12/24/16 Montelukast [Singulair] 10 mg PO DAILY 12/24/16 Omeprazole [Prilosec] 40 mg PO DAILY 12/24/16 Tizanidine HCl [Zanaflex] 4 mg PO QHS 12/24/16 Pentosan Polysulfate Sodium [Elmiron] 100 mg PO TID 04/19/17 meloxicam 15 mg tablet 15 mg PO QDAY 07/24/17 Oxycodone HCl/Acetaminophen [Percocet 5/325] 1 - 2 tablet PO Q4H PRN PRN 7 Days #40 tablet 08/02/17 The following prescriptions were given: Oxycodone HCl/Acetaminophen [Percocet 5/325] 1 - 2 tablet PO Q4H PRN PRN 7 Days #40 tablet PRN Reason: Pain Primary Care Physician: Andrae Larson MD [Primary Care Provider] - Please Follow Up With: Kuldip Murcia MD When: call tomorrow to make 2 week follow up appt [phone] 08/02/17 1340 <Electronically signed by Kuldip Murcia MD> Date Kuldip Murcia MD CC: Miguel Larson MD SURGERY VISIT REPORT Observed: 07/25/2017 Status: F Source: [place] 12:42 PM [facility] [address] [place] [address] OFFICE VISIT Date of Service: 07/24/17 MR#: [id number] Acct: [id number] Name: EMMA PRESCOTT Silvia Rep #: [id number] : 1975 Provider: Kuldip Murcia MD Age/Sex: 42/F Location: [facility] Status: Signed Intake Vital Signs07/24/17 Height 5 ft 4 in 07/24/17 Weight: 202 lb 07/24/17 Body Mass Index (BMI) 34.7 07/24/17 Blood Pressure 132/85 07/24/17 Blood Pressure Location Lt brachial Intake Visit Reasons: Spigelian Hernia Medicare Biller Required: No Is patient in pain?: Yes (right side) Pain scale (1-10): 8 Allergies amoxicillin Allergy (Mild, Verified 07/25/17 08:18) unknown sulfamethoxazole [From Bactrim] Allergy (Mild, Verified 07/25/17 08:18) unknown trimethoprim [From Bactrim] Allergy (Mild, Verified 07/25/17 08:18) unknown aripiprazole [From Abilify] Allergy (Verified 07/25/17 08:17) Unknown citalopram hydrobromide [From Celexa] Allergy (Verified 07/25/17 08:17) Unknown codeine Allergy (Verified 07/25/17 08:17) Other doxepin Allergy (Verified 07/25/17 08:17) Pain in joints duloxetine HCl [From Cymbalta] Allergy (Verified 07/25/17 08:17) Shortness of breath lamotrigine Allergy (Verified 07/25/17 08:17) Itching Penicillins Allergy (Verified 07/25/17 08:17) Shortness of breath venlafaxine HCl [From Effexor] Allergy (Verified 07/25/17 08:17) Other Medications Bupropion HCl [Bupropion Xl] 300 mg PO DAILY 12/24/16 [History Confirmed 07/25/17] Buspirone HCl 30 mg PO BID 12/24/16 [History Confirmed 07/25/17] Cholecalciferol (Vitamin D3) [Vitamin D3] 5,000 unit PO DAILY 12/24/16 [History Confirmed 07/25/17] Clonazepam [Klonopin] 0.5 mg PO BID 12/24/16 [History Confirmed 07/25/17] Lisinopril [Prinivil] 10 mg PO DAILY 12/24/16 [History Confirmed 07/25/17] Montelukast [Singulair] 10 mg PO DAILY 12/24/16 [History Confirmed 07/25/17] Omeprazole [Prilosec] 40 mg PO DAILY 12/24/16 [History Confirmed 07/25/17] Tizanidine HCl [Zanaflex] 4 mg PO QHS 12/24/16 [History Confirmed 07/25/17] Pentosan Polysulfate Sodium [Elmiron] 100 mg PO TID 04/19/17 [History Confirmed 07/25/17] meloxicam 15 mg tablet 15 mg PO QDAY 07/24/17 [History Confirmed 07/25/17] [facility] Medical History Fibromyalgia (Chronic) Anxiety, generalized (Chronic) Choledocholithiasis with acute cholecystitis with obstruction (Acute) Gallstone pancreatitis (Acute) Anxiety (Acute) Surgical History S/P carpal tunnel release (Inactive) gallbladder removed (Inactive) h/o left knee scope (Inactive) Family History Mother Arthritis Social History Smoking Status: Former smoker HPI HPI HPI: EMMA PRESCOTT, is a 42 F who presents to the office today for right-sided abdominal pain. She had a recent CT which showed a hernia in this area. She is feeling pain and it has been there for about a month. The pain does not radiate and is in the right upper quadrant. It is at the site of her old incision. She is also having back and knee pain. ROS General General: No weight change or fatigue Musc Musculoskeletal: Yes back problems and joint pain Cardio Cardiovascular: No murmur, pacemaker, heart disease or high blood pressure Resp Respiratory: No shortness of breath, No sleep apnea, No cough Gastro Gastrointestinal: Yes abdominal pain, No nausea or vomiting, Yes diarrhea, No constipation, No blood in stool Exam Resp Effort AND Inspection: normal respiratory effort Auscultation: clear to auscultation bilaterally Cardio Rate: regular rate Rhythm: regular rhythm Heart Sounds: no murmurs GI Inspection: normal to inspection Palpation: soft, tender, hernia Assessment AND Plan Problems 1. Incisional hernia, without obstruction or gangrene K43.2; K43.91 Plan 1. I reviewed the patient's CAT scan from this month. It does show an incisional hernia in her right upper quadrant. She had an extended incision in her right upper quadrant due to all the scar tissue in the rest of the abdomen and this was used for the entry site for her gallbladder. She had a CT back in February of last year which showed no hernia. This must have happened sometime between now and then. 2. I discussed open incisional hernia repair with her. I discussed the risks including but not limited to bleeding, infection, bowel injury, mesh infection. The patient understands risks and would like to proceed with surgery next week. Kuldip Murcia MD Pager: [facility] [address] [place] [address] Office: Coding Level of Care Code Off vis,est,level 3 Diagnoses Incisional hernia, without obstruction or gangrene K43.2; K43.91 Obstruction and gangrene presence: without obstruction or gangrene 07/25/17 1242 <Electronically signed by Kuldip Murcia MD> Date Kuldip Allen Signature: Date (if applicable) CC: Miguel Larson MD ORTHOPEDIC VISIT Observed: 07/25/2017 Status: F Source: SIVA REPORT 10:46 AM [facility] REPOSITORY [facility] [address] [place] [address] OFFICE VISIT Date of Service: 07/25/17 MR#: [id number] Acct: [id number] Name: EMMA PRESCOTT Rep #: [id number] : 1975 Provider: Anita Saunders DO Age/Sex: 42/F Location: [facility] Status: Signed Intake Intake Visit Reasons: Knee pain Is patient in pain?: Yes Pain scale (1-10): 7 Allergies amoxicillin Allergy (Mild, Verified 07/25/17 08:18) unknown sulfamethoxazole [From Bactrim] Allergy (Mild, Verified 07/25/17 08:18) unknown trimethoprim [From Bactrim] Allergy (Mild, Verified 07/25/17 08:18) unknown aripiprazole [From Abilify] Allergy (Verified 07/25/17 08:17) Unknown citalopram hydrobromide [From Celexa] Allergy (Verified 07/25/17 08:17) Unknown codeine Allergy (Verified 07/25/17 08:17) Other doxepin Allergy (Verified 07/25/17 08:17) Pain in joints duloxetine HCl [From Cymbalta] Allergy (Verified 07/25/17 08:17) Shortness of breath lamotrigine Allergy (Verified 07/25/17 08:17) Itching Penicillins Allergy (Verified 07/25/17 08:17) Shortness of breath venlafaxine HCl [From Effexor] Allergy (Verified 07/25/17 08:17) Other Medications Bupropion HCl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 05/08/2018 Drug aripiprazole/F0060 Unknown Unknown [place] Allergy/416 48774(RXNORM) [facility] 019974([facility] ED CT) Repository ENCOUNTERS ENCOUNTERS ADMIT/DISCHARGE ACCOUNT ADMITTING ENCOUNTER LOCATION SOURCE NUMBER CLASS 05/11/2018/ [id number] Ambulatory BMSBuilding:B [place] 8 3 [facility] Repository 05/11/2018/ [id number] Ambulatory [place] 8 0 [facility] ing:ENRoom: Repository AC15 05/02/2018 [id number] [facility]ulatory [place] [facility] 3 [facility] ing:OPBI Repository 04/20/2018 [id number] [facility] 4 [facility] ing:LAB.FUTUR Repository E 04/18/2018/ [id number] Ambulatory BMSBuilding:B [place] 8 5 [facility] Repository 04/12/2018 [id number] Ambulatory [place] Siva 8 [facility] Hospital ing:WOBLAB Repository 11/09/2017 [id number] Ambulatory Siva [place] 8 [facility] Hospital ing:MFPLAB Repository 09/05/2017/ [id number] Ambulatory BMSBuilding:B [place] 8 4 [facility] Repository 08/21/2017/ [id number] Ambulatory BMSBuilding:B [place] 8 9 [facility] Repository 08/02/2017/ [id number] Ambulatory [place]iva 8 1 [facility] Hospital ing:SDCRoom: Repository AC14 08/02/2017 [id number] Ambulatory BMSBuilding:B [place]iva 6 [facility] Repository 07/25/2017/ [id number] Ambulatory Siva Siva 8 3 [facility] ing:PT Repository 07/25/2017/ [id number] Ambulatory BMSBuilding:B [place] 8 5 [facility] Repository 07/24/2017/ [id number] Ambulatory BMSBuilding:B [place] 8 7 [facility] Repository 07/17/2017 [id number] Ambulatory [place] 1 [facility] ing:CT Repository 07/10/2017 [id number] Ambulatory [place]iva [place] 5 [facility] ing:MFPLAB Repository 07/04/2017/ [id number] Ambulatory BMSBuilding:B [place] 8 6 [facility] Repository PAYERS PAYERS ENCOUNTER GUARANTOR PAYER SUBSCRIBER SOURCE 05/11/2018 EMMA A Primary EMMA A [place] [id number] [place] Insurance:MYCARE CRSC ADAMSDOB: [facility], *[place] [facility] [id number] [address]Irm: Number: Repository [id number] (HP) Date:9055-37-34TNYG CLAIMS [address] [place] [address]DZ: 05/11/2018 Secondary NOT GIVENUNK Siva Insurance:SELF PAY [facility] Number: Effective Repository Date:2018-05-11 05/11/2018 EMMA A Primary EMMA A [place] [id number] [place] Insurance:MYCARE CRSC ADAMSDOB: [facility], *[place] [address]-07-28[facility] [place] [address]Jbn: Number: Repository [id number] (HP) Date:3698-49-95NXOP CLAIMS [address], [place] [address]RN: 05/11/2018 Secondary NOT GIVENUNK [place] Insurance:SELF PAY [facility] Number: Effective Repository Date:2018-04-18 05/02/2018 EMMA A Primary EMMA A Siva [id number] [place] Insurance:MYCARE CRSC ADAMSDOB: [facility], *[place] [facility] [id number] [place] [address]Mss: Number: Repository [id number] (HP) Date:2110-00-71VNQV CLAIMS [address], [place] [address]XW: 05/02/2018 Secondary NOT GIVENUNK Siva Insurance:SELF PAY [facility] Number: Effective Repository Date:2018-04-13 04/20/2018 EMMA A Primary EMMA A [place] [id number] [place] Insurance:MYCARE CRSC ADAMSDOB: [facility], *[place] [address]-07-28[facility] [address]Ewg: Number: Repository [id number] (HP) Date:3111-40-57YWOK CLAIMS [address] [place] [address]TZ: 04/20/2018 Secondary NOT GIVENUNK [place] Insurance:SELF PAY [facility] Number: Effective Repository Date:2018-04-19 04/18/2018 EMMA A Primary EMMA A [place]iva [id number] [place] Insurance:MYCARE CRSC ADAMSDOB: Community [facility], *[place] [facility] [id number] [place] [address]Sxa: Number: Repository [id number] (HP) Date:6890-08-42PCPY CLAIMS DEPT[address] [place] [address]XD: 04/18/2018 Secondary NOT GIVENUNK Siva Insurance:SELF PAY [facility] Number: Effective Repository Date:2018-04-17 04/12/2018 EMMA A Primary MEMA A [place] [id number] [place] Insurance:MYCARE CRSC ADAMSDOB: Community [facility], *[place] [facility] [id number] County Medical Center [address]Rxi: Number: Repository [id number] (HP) Date:9225-28-32NBBS CLAIMS [address] [address]MX: 04/12/2018 Secondary NOT GIVENUNK [place] Insurance:SELF PAY [facility] Number: Effective Repository Date:2018-04-12 11/09/2017 EMMA A Primary EMMA A [place] [id number] [place] Insurance:MYCARE CRSC ADAMSDOB: Community [facility], *[place] [address]-07-28[facility] [address]Qlx: Number: Repository [id number] (HP) Date:6491-45-91RNEZ CLAIMS [address], [place] [address]CM: 11/09/2017 Secondary NOT GIVENUNK [place] Insurance:SELF PAY [facility] Number: Effective Repository Date:2017-11-09 09/05/2017 EMMA A Primary EMMA A [place] [id number] [place] Insurance:MYCARE CRSC ADAMSDOB: [facility], *[place] [facility] 3892-54-30HQLLincoln County Medical Center [address]Zio: Number: Repository [id number] (HP) Date:1362-89-98SKND CLAIMS DEPTPO [address] [place] [address]ER: 09/05/2017 Secondary NOT GIVENUNK Siva Insurance:SELF PAY [facility] Number: Effective Repository Date:2017-09-01 08/21/2017 EMMA A Primary EMMA A [place]iva [id number] [place] Insurance:MYCARE CRSC ADAMSDOB: [facility], *[place] [facility] [id number] County Medical Center [address]Spw: Number: Repository [id number] (HP) Date:3517-39-86NCSQ CLAIMS DEPO [address] [address]OT: 08/21/2017 Secondary NOT GIVENUNK Siva Insurance:SELF PAY [facility] Number: Effective Repository Date:2017-08-03 08/02/2017 EMMA A Primary EMMA A Siva [id number] [place] Insurance:MYCARE CRSC ADAMSDOB: [facility], *[place] [facility] [id number] County Medical Center [address]Wpu: Number: Repository [id number] (HP) Date:0549-00-86ITQN CLAIMS DEPTPO [address] [address]PU: 08/02/2017 Secondary NOT GIVENUNK Siva Insurance:SELF PAY [facility] Number: Effective Repository Date:2017-07-26 08/02/2017 EMMA A Primary EMMA A [place] [id number] [place] Insurance:MYCARE CRSC ADAMSDOB: [facility], *[place] [facility] [id number] [place] [address]Odu: Number: Repository [id number] (HP) Date:3417-50-21MHFU CLAIMS [address], [place] [address]FE: 08/02/2017 Secondary NOT GIVENUNK [place] Insurance:SELF PAY [facility] Number: Effective Repository Date:2017-08-02 07/25/2017 EMMA A Primary EMMA A [place] [id number] [place] Insurance:MYCARE CRSC ADAMSDOB: [facility], *[place] [facility] [id number] [place] [address]Dqy: Number: Repository [id number] (HP) Date:7742-98-48WVZJ CLAIMS [address], [place] [address]JS: 07/25/2017 Secondary NOT GIVENUNK Siva Insurance:SELF PAY [facility] Number: Effective Repository Date:2017-07-04 07/25/2017 EMMA A Primary EMMA A Siva [id number] [place] Insurance:MYCARE CRSC ADAMSDOB: [facility], *[place] [facility] [id number] [place] [address]Dhx: Number: Repository [id number] (HP) Date:9526-78-84OFYH CLAIMS [address], [place] [address]BF: 07/25/2017 Secondary NOT GIVENUNK [place] Insurance:SELF PAY [facility] Number: Effective Repository Date:2017-07-04 07/24/2017 EMMA A Primary EMMA A Siva [id number] [place] Insurance:MYCARE CRSC [facility]SDOB[facility] *[place] [facility] [id number] [place] [address]Zhs: Number: Repository [id number] (HP) Date:6959-49-29YRWX CLAIMS [address], [place] [address]SI: 07/24/2017 Secondary NOT GIVENUNK [place] Insurance:SELF PAY [facility] Number: Effective Repository Date:2017-07-21 07/17/2017 EMMA Vega Primary EMMA Burdickoster [id number] [place] Insurance:MYCARE CRSC ADAMSDOB: Community [facility], *[place] [facility] 6737-55-67XOVLincoln County Medical Center [address]Hjn: Number: Repository [id number] (HP) Date:4012-88-90UDSL CLAIMS [address] [address]HJ: 07/17/2017 Secondary NOT GIVENUNK Siva Insurance:SELF PAY [facility] Number: Effective Repository Date:2017-07-14 07/10/2017 EMMA Vega Primary EMMA Vega Siva [id number] [place] Insurance:MYCARE CRSC ADAMSDOB: [facility], *[place] [facility] [id number] [place] [address]Jzh: Number: Repository [id number] (HP) Date:3372-31-46CQNF [place] [address]AL: 07/10/2017 Secondary NOT GIVENUNK Siva Insurance:SELF PAY [facility] Number: Effective Repository Date:2017-07-10 07/04/2017 EMMA Vega Primary EMMA Vega Siva [id number] [place] Insurance:MYCARE CRSC ADAMSDOB: [facility], *[place] [facility] [id number] [place] [address]Cjk: Number: Repository [id number] (HP) Date:1616-14-09BZLK CLAIMS [address] [address]CN: 07/04/2017 Secondary NOT GIVENUNK Siva Insurance:SELF PAY [facility] Number: Effective Repository Date:2017-05-13
== END 2018-05-11 10:54 | disposition home or self-care (01) ==
LOC: EN 08:43 → AC 08:45
PROVIDERS: Family Provider Family Medicine; PCP Family Medicine; Referring Provider Surgery; Visit Provider Surgery
PROC: 0DJD8ZZ Inspection of Lower Intestinal Tract, Via Natural or Artificial Opening Endoscopic (ICD-10-PCS; CPT 45378; principal; 2018-05-11 09:55)
DX: Z12.11 Encounter for screening for malignant neoplasm of colon (principal); Z80.0 Family history of malignant neoplasm of digestive organs; M79.7 Fibromyalgia; F41.1 Generalized anxiety disorder; Z87.891 Personal history of nicotine dependence
CPT/HCPCS: G0105; J7120

== ENCOUNTER → 2018-06-28 09:24 | Outpatient (CLI) | payer MEDICARE, SELFPAY ==
[2018-06-28 12:55] LABS: Estradiol 38.5 pg/mL
[2018-06-29 07:08] LABS: DHEA Sulfate 350.7 ug/dL (57.3-279.2)
[2018-06-29 09:27] LABS: Sex Hormone-binding Globulin 133.9 nmol/L (24.6-122.0)
--- OUTSIDE RECORDS SUMMARY | 2018-09-01 23:06 | XMS RPT_ITS ---
:1975 Author Organization OHIP Support Name Relationship Address Phone MAN PRESCOTTN Unavailable [address] + [place] [address] D Unavailable Unavailable Unavailable PRESCOTT, ANA LUISA Unavailable [address] + [place] [address] D Unavailable Unavailable Unavailable PRESCOTT, ANA LUISA Unavailable [address] + [place] [address] D Unavailable Unavailable Unavailable PRESCOTT, ANA LUISA Unavailable [address] + [place] [address] D Unavailable Unavailable Unavailable PRESCOTT, ANA LUISA Unavailable [address] + [place] [address] D Unavailable Unavailable Unavailable PRESCOTT, ANA LUISA Unavailable [address] + [place] [address] D Unavailable Unavailable Unavailable PRESCOTT, ANA LUISA Unavailable [address] + [place] [address] D Unavailable Unavailable Unavailable PRESCOTT, ANA LUISA Unavailable [address] + [place] [address] D Unavailable Unavailable Unavailable PRESCOTT, ANA LUISA Unavailable [address] + [place] [address] D Unavailable Unavailable Unavailable PRESCOTT, ANA LUISA Unavailable [address] + [place] [address] D Unavailable Unavailable Unavailable PRESCOTT, ANA LUISA Unavailable [address] + [place] [address] D Unavailable Unavailable Unavailable PRESCOTT, ANA LUISA Unavailable [address] + [place] [address] D Unavailable Unavailable Unavailable PRESCOTT, ANA LUISA Unavailable [address] + [place] [address] D Unavailable Unavailable Unavailable PRESCOTT, ANA LUISA Unavailable [address] + [place] [address] D Unavailable Unavailable Unavailable PRESCOTT, ANA LUISA Unavailable [address] + [place] [address] D Unavailable Unavailable Unavailable PRESCOTT, ANA LUISA Unavailable [address] + [place] [address] D Unavailable Unavailable Unavailable PRESCOTT, ANA LUISA Unavailable [address] + [place] [address] D Unavailable Unavailable Unavailable PRESCOTT, ANA LUISA Unavailable [address] + [place] [address] D Unavailable Unavailable Unavailable Care Team Providers Name Role Phone Sallie Santana Attending Unavailable Kerri Jiménez Attending Unavailable Kerri Jiménez Referring Unavailable Ranney, Christopher Primary Care Unavailable Ranney, Christopher Attending Unavailable Ranney, Christopher Referring Unavailable Ranney, Christopher Primary Care Unavailable Ranney, Christopher Attending Unavailable Ranney, Christopher Referring Unavailable Ranney, Christopher Primary Care Unavailable Rufus Rachel Unavailable Kuldip Murcia Attending Unavailable Ranney, Christopher Referring Unavailable Ranney, Christopher Primary Care Unavailable Anita Saunders Attending Unavailable Ranney, Christopher Referring Unavailable Ranney, Christopher Primary Care Unavailable Kuldip Murcia Attending Unavailable Kuldip Murcia Referring Unavailable Ranney, Christopher Primary Care Unavailable Kuldip Murcia Attending Unavailable JeovannyabrKuldip gordon Referring Unavailable Ranney, Christopher Primary Care Unavailable Kuldip Murcia Consulting Unavailable Kuldip Murcia Attending Unavailable Ranney, Christopher Referring Unavailable Ranney, Christopher Primary Care Unavailable Kerri Jiménez Attending Unavailable Ranney, Christopher Referring Unavailable Ranney, Christopher Primary Care Unavailable Ranney, Christopher Attending Unavailable Ranney, Christopher Attending Unavailable Ranney, Christopher Primary Care Unavailable Marsha, Christopher Referring Unavailable Sallie Santana Consulting Unavailable Kuldip Murcia Attending Unavailable Cedricney, Christopher Referring Unavailable Sallie Santana Attending Unavailable Ranney, Christopher Primary Care Unavailable Kuldip Murcia Attending Unavailable Kuldip Murcia Referring Unavailable Ranney, Christopher Primary Care Unavailable Sallie Santana Attending Unavailable Sallie Santana Referring Unavailable Ranney, Christopher Primary Care Unavailable Calabretta, Kuldip Attending Unavailable Kuldip Murcia Referring Unavailable Kerri Jiménez Attending Unavailable Miguel Larson Referring Unavailable Miguel Larson Primary Care Unavailable PROBLEMS PROBLEMS DATE TYPE CONDITION / CODE ATTENDING STATUS SOURCE 06/28/2018 Unknown R68.82 - Decreased Max, Active [place] libido / [facility] R68.82(ICD-10) Hospital Repository 06/28/2018 Unknown N95.1 - Menopausal Max, Active [place] and female [facility] climacteric states Hospital / N95.1(ICD-10) Repository 05/21/2018 Unknown Z80.0 - Family Divina, Active [place] history of [facility] malignant neoplasm Hospital of digestive Repository organs / Z80.0(ICD-10) 04/20/2018 Unknown E55.9 - Vitamin D Max, Active [place] deficiency, [facility] unspecified / Hospital E55.9(ICD-10) Repository 04/12/2018 Unknown R53.83 - Other Marsha, Active [place] fatigue / [facility] R53.83(ICD-10) Hospital Repository 04/12/2018 Unknown Z12.4 - Encounter Marsha, Active [place] for screening for [facility] malignant neoplasm Hospital of cervix / Repository Z12.4(ICD-10) 08/02/2017 Unknown K43.2 - Incisional Divina, Active [place] hernia without [facility] obstruction or Hospital gangrene / Repository K43.2(ICD-10) 08/31/2017 Unknown M48.061 - Spinal Kerri Jiménez Active [place] stenosis, lumbar [facility] region without Hospital neurogenic Repository claudication / M48.061(ICD-10) 07/25/2017 Unknown M17.12 - Anita Saunders Active [place] Unilateral primary [facility] osteoarthritis, Hospital left knee / Repository M17.12(ICD-10) 07/18/2017 Unknown R10.11 - Right Marsha, Active [place] upper quadrant [facility] pain / Hospital R10.11(ICD-10) Repository PROCEDURES PROCEDURES No Procedure Records FoundRESULTS RESULTS ESTRADIOL Collected: 06/28/2018 Status: F Source: [place] 9:33 AM [facility] REPOSITORY TYPE CODE TESTS RESULT OUT OF RANGE REFERENCE UNITS LAB L3300.1750 pg/mL Normal ESTRADIOL 38.5 Result Comment: NORMAL REFERENCE RANGES FEMALE FOLLICULAR [...] TO DETERMINE ESTRADIOL CONCENTRATION. Performed By: #### L3300.1750 #### [facility] [address] [place], [address] TESTOSTERONE, SERUM TOTAL Collected: 06/28/2018 Status: F Source: [place] 9:33 AM [facility] REPOSITORY TYPE CODE TESTS RESULT OUT OF REFERENCE UNITS RANGE LAB L509.3000 ng/dL Testosterone Normal 34.27 Result Comment: NORMAL REFERENCE RANGES MALE AGE <50 123.06 - 813.86 ng/dL MALE AGE >50 89.98 - 780.10 ng/dL FEMALE PREMENOPAUSE AGE 21 - 60 9.01 - 47.94 ng/dL FEMALE POSTMENOPAUSE AGE 45 - 89 <7.00 - 45.62 ng/dL REFERENCE RANGE AND METHODOLOGY CHANGED 05/31/2017 Performed By: #### L509.3000, L509.6000 #### [facility] [address] [place], [place], [address] CORTISOL SERUM Collected: 06/28/2018 Status: F Source: [place] 9:33 AM [facility] REPOSITORY TYPE CODE TESTS RESULT OUT OF RANGE REFERENCE UNITS LAB L509.6000 3.09-22.40 ug/dL Normal CORTISOL 12.20 Result Comment: Adult (AM) 4.30 - 22.40 ug/dL Adult (PM) 3.09 - 16.66 ug/dL Performed By: #### L509.3000, L509.6000 #### [facility] [address] [place], [address] SEX HORMONE-BINDING Collected: 06/28/2018 Status: F Source: [place] GLOBULIN 9:33 AM [facility] REPOSITORY Order Comment: Has Patient had Radioactive Injection for X-ray?: N TYPE CODE TESTS RESULT OUT OF RANGE REFERENCE UNITS LAB L3100.5060 24.6-122.0 nmol/L High SHBG 133.9 Result Comment: Performed at: [facility] [id number] Mechanical Unit Repairer: Holland Morgan PhD, Phone: [phone] Performed By: #### L3100.5060, L3300.1500 #### [facility] (refer to report for specific site) refer to report for address and phone number DHEA SULFATE Collected: 06/28/2018 Status: F Source: [place] 9:33 AM [facility] REPOSITORY Order Comment: Has Patient had Radioactive Injection for X-ray?: N TYPE CODE TESTS RESULT OUT OF RANGE REFERENCE UNITS LAB L3300.1500 57.3-279.2 ug/dL High DHEA SULF 350.7 4020 Performed By: #### L3100.5060, L3300.1500 #### [facility] (refer to report for specific site) refer to report for address and phone number OPERATIVE REPORT - Observed: 05/11/2018 Status: F Source: [place] ENDOSCOPY 10:16 AM [facility] REPOSITORY [facility] Medical Records Department [address] [place] [address] Operative Report - Endoscopy MR#: [id number] Acct: [id number] Name: EMMA PRESCOTT Rep #: [id number] : 1975 43 From: Kuldip Murcia MD PCP: Miguel Larson MD Status: [facility] Patient Name: Emma Prescott Procedure Date: 05/11/2018 [...] neoplasm of digestive organs CPT copyright 2017 [employer]. All rights reserved. The codes documented in this report are preliminary and upon sagger soak review may be revised to meet current compliance requirements. Kuldip Murcia MD 05/11/2018 10:15:55 AM This report has been signed electronically. Number of Addenda: 0 Note Initiated On: 05/11/2018 9:47 AM 05/11/18 1015 Date Kuldip Murcia MD Cosigner Signature: Date (if indicated) CC: Kuldip Murcia MD; Miguel Larson MD Date Dictated: 05/11/18 0947 Date Transcribed: Weight Control Engineer: LELE Signed COMPREHENSIVE METABOLIC Collected: 04/20/2018 Status: F Source: [place] PROFIL 9:39 AM [facility] REPOSITORY TYPE CODE TESTS RESULT OUT OF [...] GAP 5 Performed By: #### L500.4050 #### [facility] [address] [place], [place], [address] VITAMIN D,25 HYDROXY Collected: 04/20/2018 Status: F Source: [place] 9:39 AM [facility] REPOSITORY TYPE CODE TESTS RESULT OUT OF RANGE REFERENCE UNITS LAB L506.1000 29.95-100.01 ng/mL Normal Vitamin D 55.2 25-OH Result Comment: Vitamin D 25(OH) Status Range Deficiency <20 ng/mL (50nmol/L) Insuffciency 20 - 30 ng/mL (50 - 75 nmol/L) Sufficiency 30 - 100 ng/mL (75 - 250 nmol/L) Toxicity >100 ng/mL (>250 nmol/L) Performed By: #### L506.1000 #### [facility] [address] [place], [place], [address] THYROID PEROXIDASE AB Collected: 04/20/2018 Status: F Source: [place] 9:39 AM [facility] REPOSITORY TYPE CODE TESTS RESULT OUT OF RANGE REFERENCE UNITS LAB L3300.6900 0-34 IU/mL Normal TPO AB 15 6676 Result Comment: Performed at: - [facility] [address] [id number] Mechanical Unit Repairer: Holland Morgan PhD, Phone: [phone] Performed By: #### L3300.6900, L3300.7027 #### [facility] (refer to report for specific site) refer to report for address and phone number THYROGLOBULIN ANTIBODY Collected: 04/20/2018 Status: F Source: [place] 9:39 AM [facility] REPOSITORY TYPE CODE TESTS RESULT OUT OF RANGE REFERENCE UNITS LAB L3300.7027 0.0-0.9 IU/mL Normal TG AB < 1.0 Result Comment: Thyroglobulin Antibody measured by [employer] Methodology Performed By: #### L3300.6900, L3300.7027 #### [facility] (refer to report for specific site) refer to report for address and phone number SURGERY VISIT REPORT Observed: 04/18/2018 Status: F Source: [place] 10:52 AM [facility] REPOSITORY [facility] [address] [place] [address] OFFICE VISIT Date of Service: 04/18/18 MR#: [id number] Acct: [id number] Name: EMMA PRESCOTT Rep #: [id number] : 1975 Provider: Kuldip Murcia MD Age/Sex: 43/F Location: [facility] Status: Signed Intake Vital Signs04/18/18 Height 5 ft 4 in 04/18/18 Blood Pressure 111/70 04/18/18 Blood Pressure Location Lt brachial 04/18/18 Blood Pressure Position Sitting 04/18/18 Respiratory Rate 14 Intake Visit Reasons: C-Scope Consult Chrome Tanner Required: No Accompanied by: Family / Other [...] proceed with procedure. Kuldip Murcia MD Pager: [facility] [address] [place] [address], [address] [place] [address] Office: Orders Orders: Coding Level of Care Code Off vis,est,level 2 Diagnoses Family history of malignant neoplasm of colon in first degree relative diagnosed when younger than 60 years of age Z80.0 Screening for colorectal cancer Z12.11; Z12.12 04/18/18 1052 <Electronically signed by Kuldip Murcia MD> Date Kuldip Murcia MD Cosigner Signature: Date (if applicable) CC: Miguel Larson MD TESTOSTERONE, SERUM TOTAL Collected: 04/12/2018 Status: F Source: [place] 10:18 AM [facility] REPOSITORY TYPE CODE TESTS RESULT OUT OF [...] 05/31/2017 Performed By: #### L509.3000, L509.6000 #### [facility] [address] [facility]. [place], [place], [address] CORTISOL SERUM Collected: 04/12/2018 Status: F Source: [place] 10:18 AM [facility] REPOSITORY TYPE CODE TESTS RESULT OUT OF RANGE REFERENCE UNITS LAB L509.6000 3.09-22.40 ug/dL Normal CORTISOL 5.10 Result Comment: Adult (AM) 4.30 - 22.40 ug/dL Adult (PM) 3.09 - 16.66 ug/dL Performed By: #### L509.3000, L509.6000 #### [facility] [address] [facility]. [place], [place], [address] LIPID PROFILE Collected: 04/12/2018 Status: F Source: [place] 10:18 AM [facility] REPOSITORY TYPE CODE TESTS RESULT OUT OF [...] Normal VLDL 21 Performed By: #### L500.4100, L501.34517, L501.9520, L506.0400, L3100.5125, L3100.5420, L3300.1750 #### [facility] [address] [place], [address] FREE T3 Collected: 04/12/2018 Status: F Source: [place] 10:18 AM [facility] REPOSITORY TYPE CODE TESTS RESULT OUT OF RANGE REFERENCE UNITS LAB L501.95881 2.18-3.98 pg/mL Normal FREE T3 2.6 Performed By: #### L500.4100, L501.56484, L501.9520, L506.0400, L3100.5125, L3100.5420, L3300.1750 #### [facility] [address] [place], [address] THYROID STIM HORMONE Collected: 04/12/2018 Status: F Source: [place] (TSH) 10:18 AM [facility] REPOSITORY TYPE CODE TESTS RESULT OUT OF RANGE REFERENCE UNITS LAB L501.9520 0.358-3.74 uIU/mL Normal TSH 3.25 Performed By: #### L500.4100, L501.47179, L501.9520, L506.0400, L3100.5125, L3100.5420, L3300.1750 #### [facility] [address] [place], [address] T4 FREE DIRECT Collected: 04/12/2018 Status: F Source: [place] 10:18 AM [facility] REPOSITORY TYPE CODE TESTS RESULT OUT OF RANGE REFERENCE UNITS LAB L506.0400 0.76-1.46 ng/dL Normal T4 FREE 0.99 DIRECT Performed By: #### L500.4100, L501.75674, L501.9520, L506.0400, L3100.5125, L3100.5420, L3300.1750 #### [facility] [address] [place], [place], [address] FOLLICLE STIMULATING Collected: 04/12/2018 Status: F Source: [place] HORMONE 10:18 AM [facility] REPOSITORY TYPE CODE TESTS RESULT OUT OF [...] OCTOBER 31, 2011 Performed By: #### L500.4100, L501.58096, L501.9520, L506.0400, L3100.5125, L3100.5420, L3300.1750 #### [facility] [address] [place], [place], [address] PROLACTIN Collected: 04/12/2018 Status: F Source: [place] 10:18 AM [facility] REPOSITORY TYPE CODE TESTS RESULT OUT OF RANGE REFERENCE UNITS LAB L3100.5420 ng/mL Normal PROLACTIN 14.9 Result Comment: NORMAL REFERENCE RANGES FEMALE NON- 2.2 - 30.3 ng/mL 8.1 - 347.6 ng/mL POST-MENOPAUSAL 0.7 - 31.5 ng/mL MALE 2.5 - 17.4 ng/mL NEW TEST METHOD AND REFERENCE RANGES OCTOBER 31, 2011 Performed By: #### L500.4100, L501.26441, L501.9520, L506.0400, L3100.5125, L3100.5420, L3300.1750 #### [facility] [address] [place], [place], [address] ESTRADIOL Collected: 04/12/2018 Status: F Source: [place] 10:18 AM [facility] REPOSITORY TYPE CODE TESTS RESULT OUT OF [...] DETERMINE ESTRADIOL CONCENTRATION. Performed By: #### L500.4100, L501.32181, L501.9520, L506.0400, L3100.5125, L3100.5420, L3300.1750 #### [facility] [place], [address] SEX HORMONE-BINDING Collected: 04/12/2018 Status: F Source: [place] GLOBULIN 10:18 AM [facility] REPOSITORY Order Comment: Has Patient had Radioactive Injection for X-ray?: N TYPE CODE TESTS RESULT OUT OF RANGE REFERENCE UNITS LAB L3100.5060 24.6-122.0 nmol/L High SHBG 158.7 Result Comment: Performed at: - [facility] [id number] Mechanical Unit Repairer: Holland Morgan PhD, Phone: [phone] Performed By: #### L3100.5060, L3300.1500 #### [facility] (refer to report for specific site) refer to report for address and phone number DHEA SULFATE Collected: 04/12/2018 Status: F Source: [place] 10:18 AM [facility] REPOSITORY Order Comment: Has Patient had Radioactive Injection for X-ray?: N TYPE CODE TESTS RESULT OUT OF RANGE REFERENCE UNITS LAB L3300.1500 57.3-279.2 ug/dL Low DHEA SULF 19.8 4020 Performed By: #### L3100.5060, L3300.1500 #### [facility] (refer to report for specific site) refer to report for address and phone number PAP IG HPV APTIMA Collected: 04/12/2018 Status: F Source: [place] 16/18,45 9:45 AM [facility] REPOSITORY Order Comment: CYTOLOGY INFORMATION: - CLINICAL INFORMATION: HYSTERECTOMY - DATE LMP/MENOPAUSE: HYSTER LMP - COLLECTION VIAL: Thin Prep Vial - BULLET SLUG CASTING MACHINE OPERATOR SOURCE: VAGINA - COLLECTION TECHNIQUE: BRUSH/SPATULA Specimen Comment: [id number] Specimen Comment: Source.............Vagina Specimen Comment: LMP / [...] Normal PERFORM Comment Result Comment: Lashae Soto, Foundry Operator (ASCP) LAB L7400.2575 . Normal TEST METHOD [...] types (16/18/31/33/35/39/45/ 51/52/56/58/59/66/68) without differentiation. Performed at: - [facility] [id number] Mechanical Unit Repairer: Cayla Bailey MD, Phone: [phone] Performed at: =[facility] [address] [id number] Mechanical Unit Repairer: Cayla Bailey MD, Phone: [phone] Performed By: #### L7400.0280 #### [facility] (refer to report for specific site) refer to report for address and phone number COMPREHENSIVE METABOLIC Collected: 11/09/2017 Status: F Source: [place] ANDRES 2:12 PM [facility] REPOSITORY Order Comment: Order Date: 11/09/17 Order [...] GAP 9 Performed By: #### L500.4050 #### [facility] [address] [place], [place], [address] ORTHOPEDIC VISIT Observed: 09/10/2017 Status: F Source: [place] REPORT 12:26 PM [facility] REPOSITORY [facility] [address] [place] [address] OFFICE VISIT Date of Service: 09/05/17 MR#: [id number] Acct: [id number] Name: EMMA PRESCOTT Rep #: [id number] : 1975 Provider: Kerri Jiménez MD Age/Sex: 42/F Location: [facility] Status: Signed Intake Intake Visit Reasons: LOW [...] VISIT REPORT Observed: 08/21/2017 Status: F Source: [place] 2:08 PM [facility] REPOSITORY [facility] [address] [place] [address] OFFICE VISIT Date of Service: 08/21/17 MR#: [id number] Acct: [id number] Name: EMMA PRESCOTT Rep #: [id number] : 1975 Provider: Kuldip Murcia MD Age/Sex: 42/F Location: [facility] Status: Signed Intake Intake Visit Reasons: Hernia [...] follow-up with her back surgeon and paint roller covers supervisor. 2. No lifting over 20 pounds for 2 weeks and then activity as tolerated from my standpoint. Kuldip Murcia MD Pager: [facility] [address], [address] [address] Office: Coding Level of Care Code Global Post Op Diagnoses Incisional hernia, without obstruction or gangrene K43.2 Obstruction and gangrene presence: without obstruction or gangrene 08/21/17 1408 <Electronically signed by Kuldip Murcia MD> Date Kuldip Murcia MD Cosigner Signature: Date (if applicable) CC: Miguel Larson MD OPERATIVE REPORT Observed: 08/02/2017 Status: F Source: [place] 1:43 PM [facility] REPOSITORY [facility] Medical Records Department [address] [place] [address] Operative Report 08/02/17 1340 MR#: [id number] Acct: [id number] Name: EMMA PRESCOTT Rep #: [id number] : 1975 42 From: Kuldip Murcia MD PCP: Miguel Larson MD Status: REG [facility] Y Location: [place] [address] Problem List (1) Incisional hernia Status: Acute [...] the hernia defect was closed with 3 [id number] 0 PDS sutures. Next a piece of [...] DISCHARGE INSTRUCTION Observed: 08/02/2017 Status: F Source: [place] 1:40 PM [facility] REPOSITORY [facility] Medical Records Department [address] [place] [address] Instructions for Home/Discharge Instructions 08/02/17 1338 MR#: [id number] Acct: [id number] Name: EMMA PRESCOTT Rep #: [id number] : 1975 42 From: Kuldip Murcia MD PCP: Miguel Larson MD Status: REG [facility] Discharge Diet: Light diet - advance as [...] to make 2 week follow up appt [phone] 08/02/17 1340 <Electronically signed by Kuldip Murcia MD> Date Kuldip Murcia MD CC: Miguel Larson MD SURGERY VISIT REPORT Observed: 07/25/2017 Status: F Source: [place] 12:42 PM [facility] [address] [place] [address] OFFICE VISIT Date of Service: 07/24/17 MR#: [id number] Acct: [id number] Name: EMMA PRESCOTT Rep #: [id number] : 1975 Provider: Kuldip Murcia MD Age/Sex: 42/F Location: [facility] Status: Signed Intake Vital Signs07/24/17 Height 5 ft 4 in 07/24/17 Weight: 202 lb 07/24/17 Body Mass Index (BMI) 34.7 07/24/17 Blood Pressure 132/85 07/24/17 Blood Pressure Location Lt brachial Intake Visit Reasons: Spigelian Hernia Chrome Tanner Required: No Is patient in pain?: Yes [...] mg PO QDAY 07/24/17 [History Confirmed 07/25/17] [facility] Medical History Fibromyalgia (Chronic) Anxiety, generalized [...] surgery next week. Kuldip Murcia MD Pager: [facility] [address] [place] [address] Office: Coding Level of Care Code Off vis,est,level 3 Diagnoses Incisional hernia, without obstruction or gangrene K43.2; K43.91 Obstruction and gangrene presence: without obstruction or gangrene 07/25/17 1242 <Electronically signed by Kuldip Murcia MD> Date Kuldip Byrd Signature: Date (if applicable) CC: Miguel Larson MD ORTHOPEDIC VISIT Observed: 07/25/2017 Status: F Source: [place] REPORT 10:46 AM [facility] REPOSITORY [facility] [address] [address] OFFICE VISIT Date of Service: 07/25/17 MR#: [id number] Acct: [id number] Name: EMMA PRESCOTT Rep #: [id number] : 1975 Provider: Anita Saunders DO Age/Sex: 42/F Location: [facility] Status: Signed Intake Intake Visit Reasons: Knee [...] mg PO QDAY 07/24/17 [History Confirmed 07/25/17] [facility] Medical History Fibromyalgia (Chronic) Anxiety, generalized (Chronic) [...] Route Admin Location Lot Number Expiration DateNDC Mosaic Technician 2 mg Intra-Articularleft knee [id number] 09/10/18 9171-5727-88 [employer] Assessment AND Plan 1. Primary osteoarthritis of [...] knee M17.12 Osteoarthritis type: primary Additional Codes sporting goods sales manager.knee ([id number]) 07/25/17 1046 <Electronically signed by Anita Saunders DO> Date Anita Saunders DO Cosigner Signature: Date (if applicable) CC: ORTHOPEDIC VISIT Observed: 07/22/2017 Status: F Source: [place] REPORT 9:25 PM [facility] REPOSITORY [facility] [address] [place] [address] OFFICE VISIT Date of Service: 07/04/17 MR#: [id number] Acct: [id number] Name: EMMA PRESCOTT Rep #: [id number] : 1975 Provider: Kerri Jiménez MD Age/Sex: 42/F Location: [facility] Status: Signed Intake Intake Visit Reasons: low [...] Status: F Source: [place] CONTRAST 5:28 PM [facility] REPOSITORY [facility] [facility] Imaging Services [address] [place] [address] [place] [address] Abdomen/Pelvis WITH Contrast MR#: [id number] Acct: [id number] Name: EMMA PRESCOTT Rep #: [id number] : 1975 F 42 From: Wolfgang Lunsford MD PCP: Miguel Larson MD Status: REG CLI Study: Abdomen/Pelvis WITH Contrast Date of Exam: 07/17/17 Exam# [id number] Ordering Dr: Andrae Larson MD STUDY: CT [...] Wolfgang Lunsford MD at 15:24 EST Tel [phone], Service support , CC: Miguel Larson MD Weight Control Engineer: Signed INITAL EVALUATION (1) Observed: 07/10/2017 Status: F Source: SIVA - PT 3:09 PM [facility] REPOSITORY [facility] [address] [place] [address] Fax REHABILITATION SERVICES INITIAL EVALUATION MR#: [id number] Acct: [id number] Name: EMMA PRESCOTT Rep #: [id number] : 1975 42 From: Elton Nixon PT, Cert. MDT, OCS Referring Dr.: Kerri Jiménez MD Status: REG RCR [facility] *IN NETWORK SELF PAY INSURANCE Patient's Visit [...] Response: No effect Lumbar Standing: Right Side Roosevelt - Symptoms During Testing: Increases Lumbar Standing: Right Side Roosevelt - Symptoms After Testing: Worse Lumbar Standing: Left Side [place] - Mechanical Response: No effect Lumbar Standing: Left Side Roosevelt - Symptoms During Testing: Increases Lumbar Standing: Left Side Roosevelt - Symptoms After Testing: Worse - Goals [...] to be FAXED BACK to us at [phone] for Medicare purposes. Please let me know if there are questions or concerns regarding this plan of care. Physician Signature: Date: <Electronically signed by Elton Nixon PT, Cert. SURINDER, OCS> 07/10/17 1509 CC: Miguel Larson MD; Kerri Jiménez MD SAMIR Signed For Medicare only, by signing this I certify the plan of care. Physicians Signature Date CBC W/DIFF, AUTOMATED Collected: 07/10/2017 Status: F Source: SIVA 11:14 AM [facility] REPOSITORY Order Comment: Order Date: 07/10/17 Order [...] By: #### L100.0100, L500.4050, L501.2400, L501.2450 #### [facility] [place], [address] COMPREHENSIVE METABOLIC Collected: 07/10/2017 Status: F Source: SIVA ANDRES 11:14 AM [facility] REPOSITORY Order Comment: Order Date: 07/10/17 Order [...] By: #### L100.0100, L500.4050, L501.2400, L501.2450 #### [facility] [address] [place], [address] AMYLASE Collected: 07/10/2017 Status: F Source: SULPHUR BLUFF 11:14 [facility] REPOSITORY Order Comment: Order Date: 07/10/17 Order Info: [id number] - CMP Order Info: 1798-8 - FABIANA Order Info: 3040-3 - LIPASE TYPE CODE TESTS RESULT OUT OF RANGE REFERENCE UNITS LAB L501.2400 25-115 U/L Normal FABIANA 40 Performed By: #### L100.0100, L500.4050, L501.2400, L501.2450 #### [facility] [address] [place], [address] LIPASE Collected: 07/10/2017 Status: F Source: SULPHUR BLUFF 11:14 [facility] REPOSITORY Order Comment: Order Date: 07/10/17 Order Info: 0786-1 - CMP Order Info: [id number] - FABIANA Order Info: 3040-3 - LIPASE TYPE CODE TESTS RESULT OUT OF RANGE REFERENCE UNITS LAB L501.2450 73-393 U/L Normal LIPASE 192 Performed By: #### L100.0100, L500.4050, L501.2400, L501.2450 #### [facility] [address] [place], [address] ALLERGIES ALLERGIES DATE TYPE / CODE NAME / CODE REACTION SEVERITY SOURCE 05/08/2018 Drug venlafaxine Other Unknown [facility] Allergy/416 HCl/P802976152(RXN Community 397377([facility] OR) [facility] ED [facility]) Repository 05/08/2018 Drug citalopram Unknown Unknown [place] Allergy/416 hydrobromide/F0000 Community 570119([facility] 16021(NORM) [facility] ED [facility]) Repository 05/08/2018 Drug duloxetine Shortness of Unknown [place] Allergy/416 HCl/A515798889(RXN breath Community 545602([facility] ED CT) Repository 05/08/2018 Drug Penicillins/M52463 Shortness of Unknown [place] Allergy/416 0476(RXNORM) breath Community 902809([facility] ED CT) Repository 05/08/2018 Drug codeine/[id number] Other Unknown [place] Allergy/416 (RXNORM) Community 749015([facility] ED CT) Repository 05/08/2018 Drug sulfamethoxazole/F Unknown [place] Allergy/416 725975925(RXNORM) Community 479277([facility] ED CT) Repository 05/08/2018 Drug trimethoprim/F0060 Unknown [place] Allergy/416 01413(RXNORM) [facility] 694126([facility] ED CT) Repository 05/08/2018 Drug amoxicillin/S49645 Unknown [place] Allergy/416 3675(RXNORM) [facility] 315996([facility] ED CT) Repository 05/08/2018 Drug lamotrigine/I03672 Itching Unknown [place] Allergy/416 3988(RXNORM) Community 191145([facility] ED CT) Repository 05/08/2018 Drug doxepin/[id number] Pain in joints Unknown [place] Allergy/416 (RXNORM) [facility] 062332([facility] ED CT) Repository 05/08/2018 Drug aripiprazole/F0060 Unknown Unknown [place] Allergy/416 83140(RXNORM) [facility] 845831([facility] ED CT) Repository ENCOUNTERS ENCOUNTERS ADMIT/DISCHARGE ACCOUNT ADMITTING ENCOUNTER LOCATION SOURCE NUMBER CLASS 06/28/2018 [id number] Ambulatory Siva [place] 2 [facility] ing:WOBLAB Repository 05/11/2018/ [id number] Ambulatory Siva Siva 8 0 [facility] ing:ENRoom: Repository AC15 05/11/2018/ [id number] Ambulatory BMSBuilding:B [place] 8 3 [place].[facility] Repository 05/02/2018 [id number] Ambulatory Siva Siva 3 [facility] ing:OPBI Repository 04/20/2018 [id number] Ambulatory Siva [place] 4 [facility] ing:LAB.FUTUR Repository E 04/18/2018/ [id number] Ambulatory BMSBuilding:B [place] 8 5 [place].[facility] Repository 04/12/2018 [id number] Ambulatory Siva Isva 8 [facility] ing:WOBLAB Repository 11/09/2017 [id number] Ambulatory [place] Siva 8 [facility] ing:MFPLAB Repository 09/05/2017/ [id number] Ambulatory BMSBuilding:B [place] 8 4 [facility] Repository 08/21/2017/ [id number] Ambulatory BMSBuilding:B [place] 8 9 [place].[facility] Repository 08/02/2017/ [id number] Ambulatory Siva Siva 8 1 [facility] ing:SDCRoom: Repository AC14 08/02/2017 [id number] Ambulatory BMSBuilding:B [place] 6 [place].CF.[facility] Repository 07/25/2017/ [id number] Ambulatory Siva [place] 8 3 [facility] ing:PT Repository 07/25/2017/ [id number] Ambulatory BMSBuilding:B [place] 8 5 [facility] Repository 07/24/2017/ [id number] Ambulatory BMSBuilding:B [place] 8 7 [place].[facility] Repository 07/17/2017 [id number] Ambulatory Siva Siva 1 [facility] ing:CT Repository 07/10/2017 [id number] Ambulatory [place] Siva 5 [facility] ing:MFPLAB Repository 07/04/2017/ [id number] Ambulatory BMSBuilding:B [place] 8 6 [facility] Repository PAYERS PAYERS ENCOUNTER GUARANTOR PAYER SUBSCRIBER SOURCE 06/28/2018 EMMA Vega Primary EMMA [place] [id number] [place] Insurance:[facility] ADAMSDOB: [facility], *IN [facility] [id number] [address]Xxj: Number: Repository [id number] (HP) Date:2067-92-67XERA [place]S [address] [address]NH: 06/28/2018 Secondary NOT GIVENUNK [place] Insurance:SELF PAY [facility] Number: Effective Repository Date:2018-06-28 05/11/2018 EMMA Vega Primary EMMA Vega [place]iva [id number] [place] Insurance:[facility] ADAMSDOB: Community [facility], *IN [facility] [id number] [facility] [place] [address]Uyu: Number: Repository [id number] (HP) Date:1056-13-62PAZD CLAIMS [address], [place] [address]MI: 05/11/2018 Secondary NOT GIVENUNK [place] Insurance:SELF PAY [facility] Number: Effective Repository Date:2018-04-18 05/11/2018 EMMA A Primary EMMA Vega Siva [id number] [place] Insurance:[facility] ADAMSDOB: Community [facility], *IN [facility] [id number] [place] [address]Iof: Number: Repository [id number] (HP) Date:4437-69-42EBKE CLAIMS [address], [place] [address]QF: 05/11/2018 Secondary NOT GIVENUNK [place] Insurance:SELF PAY [facility] Number: Effective Repository Date:2018-05-11 05/02/2018 EMMA A Primary EMMA Vega [place] [id number] [place]KE[place] Insurance:[facility] [facility] ADAMSDOB: Community [facility], *IN [facility] [id number] [place] [address]Ayw: Number: Repository [id number] (HP) Date:9618-23-39ZALZ [address]S [address] [address]TC: 05/02/2018 Secondary NOT GIVENUNK [place] Insurance:SELF PAY [facility] Number: Effective Repository Date:2018-04-13 04/20/2018 EMMA A Primary EMMA A [place] [id number] [place] Insurance:[facility] [facility] ADAMSDOB: Community [facility], *IN [facility] [id number] [address]Ivu: Number: Repository [id number] (HP) Date:8163-98-12EXNL CLAIMS [address] [place] [address]AP: 04/20/2018 Secondary NOT GIVENUNK [place] Insurance:SELF PAY [facility] Number: Effective Repository Date:2018-04-19 04/18/2018 EMMA A Primary EMMA A [place] [id number] [place] Insurance:[employer] [facility] ADAMSDOB: [facility], *IN [facility] 2830-93-13PYOPlains Regional Medical Center [address]Nwy: Number: Repository [id number] (HP) Date:8567-79-85IFXQ CLAIMS [address] [place] [address]QJ: 04/18/2018 Secondary NOT GIVENUNK [place] Insurance:SELF PAY [facility] Number: Effective Repository Date:2018-04-17 04/12/2018 EMMA A Primary EMMA A Siva [id number] [place] Insurance:[facility] [facility] ADAMSDOB: [facility], *[place] [facility] 2310-20-40PTH [place] [address]Mhv: Number: Repository [id number] (HP) Date:3144-29-90ADCM CLAIMS [address] [address]QU: 04/12/2018 Secondary NOT GIVENUNK Siva Insurance:SELF PAY [facility] Number: Effective Repository Date:2018-04-12 11/09/2017 EMMA A Primary EMMA A Siva [id number] [place] Insurance:[facility] ADAMSDOB: [facility], *[place] [facility] [id number] [place] [address]Byu: Number: Repository [id number] (HP) Date:5319-11-54WYVL CLAIMS [address] [address]CT: 11/09/2017 Secondary NOT GIVENUNK [place] Insurance:SELF PAY [facility] Number: Effective Repository Date:2017-11-09 09/05/2017 EMMA A Primary EMMA A [place]iva [id number] [place] Insurance:[facility] [facility] ADAMSDOB: Community [facility], *IN [facility] [id number] [place] [address]Yej: Number: Repository [id number] (HP) Date:4028-46-38XTEU CLAIMS [address] [address]JC: 09/05/2017 Secondary NOT GIVENUNK [place] Insurance:SELF PAY [facility] Number: Effective Repository Date:2017-09-01 08/21/2017 EMMA A Primary EMMA A [place] [id number] [place] Insurance:[facility] [facility] ADAMSDOB: Community [facility], *IN [facility] [id number] [place] [address]Vbb: Number: Repository [id number] (HP) Date:7803-41-75BXPZ CLAIMS [address] [address]KF: 08/21/2017 Secondary NOT GIVENUNK [place] Insurance:SELF PAY [facility] Number: Effective Repository Date:2017-08-03 08/02/2017 EMMA A Primary EMMA A [place] [id number] [place] Insurance:[employer] [facility] ADAMSDOB: Community [facility], *IN [facility] [id number] [place] [address]Yth: Number: Repository [id number] (HP) Date:3273-04-82TIMZ CLAIMS [address] [address]UZ: 08/02/2017 Secondary NOT GIVENUNK [place] Insurance:SELF PAY [facility] Number: Effective Repository Date:2017-07-26 08/02/2017 EMMA A Primary EMMA A [place] [id number] [place] Insurance:[facility] [facility] ADAMSDOB: Community [facility], *IN [facility] [id number] [place] [address]Mnw: Number: Repository [id number] (HP) Date:1584-69-03SOHP CLAIMS [address], [place] [address]KM: 08/02/2017 Secondary NOT GIVENUNK [place] Insurance:SELF PAY [facility] Number: Effective Repository Date:2017-08-02 07/25/2017 EMMA A Primary EMMA A [place] [id number] [place] Insurance:[facility] ADAMSDOB: [facility], *[place] [facility] [id number] [place] [address]Let: Number: Repository [id number] (HP) Date:8932-24-28TJWI CLAIMS [address] [address]UM: 07/25/2017 Secondary NOT GIVENUNK [place] Insurance:SELF PAY [facility] Number: Effective Repository Date:2017-07-04 07/25/2017 EMMA A Primary EMMA A Siva [id number] [place] Insurance:[facility] ADAMSDOB: [facility], *IN [facility] [id number] [place] [address]Pvq: Number: Repository [id number] (HP) Date:3091-79-98EXHS CLAIMS [address] [address]YG: 07/25/2017 Secondary NOT GIVENUNK [place] Insurance:SELF PAY [facility] Number: Effective Repository Date:2017-07-04 07/24/2017 EMMA A Primary EMMA A [place] [id number] [place] Insurance:[employer] [facility] ADAMSDOB: [facility], *IN [facility] 7412-69-54FBUPlains Regional Medical Center [address]Wgx: Number: Repository [id number] (HP) Date:6158-21-96ZTMM CLAIMS [address], [place] [address]HA: 07/24/2017 Secondary NOT GIVENUNK [place] Insurance:SELF PAY [facility] Number: Effective Repository Date:2017-07-21 07/17/2017 EMMA A Primary EMMA A [place]iva [id number] [place] Insurance:[employer] ADAMSDOB: Community [facility], *IN [facility] 1055-58-63ZWFPlains Regional Medical Center [address]Ifb: Number: Repository [id number] (HP) Date:3881-65-44GPLK CLAIMS [address] [place] [address]QV: 07/17/2017 Secondary NOT GIVENUNK [place] Insurance:SELF PAY [facility] Number: Effective Repository Date:2017-07-14 07/10/2017 EMMA A Primary EMMA A [place] [id number] [place] Insurance:[employer] [facility] ADAMSDOB: Community [facility], *IN [facility] 5207-90-53HAAPlains Regional Medical Center [address]Mwr: Number: Repository [id number] (HP) Date:9201-81-31QOZS CLAIMS [address], [place] [address]QX: 07/10/2017 Secondary NOT GIVENUNK [place] Insurance:SELF PAY [facility] Number: Effective Repository Date:2017-07-10 07/04/2017 EMMA A Primary EMMA A [place] [id number] [place] Insurance:[employer] [facility] ADAMSDOB: Community [facility], *IN [facility] 9750-20-95SFJPlains Regional Medical Center [address]Tck: Number: Repository [id number] (HP) Date:6801-66-94DQQY CLAIMS [address] [address]VX: 07/04/2017 Secondary NOT GIVENUNK [place] Insurance:SELF PAY [facility]: Effective Repository Date:2017-05-13
== END ==
PROVIDERS: Visit Provider Obstetrics & Gynecology
DX: R68.82 Decreased libido (principal); N95.1 Menopausal and female climacteric states
CPT/HCPCS: 36415; 82533; 82627; 82670; 84270; 84403; 82626

== ENCOUNTER → 2018-07-23 11:23 | Outpatient (CLI) | payer MEDICARE, SELFPAY ==
--- NOTE | 2018-07-23 11:30 | RAD_ITS ---
STUDY: X-RAY - CERVICAL SPINE REASON FOR EXAM: Female, 43 years old. Neck pain. Headaches. TECHNIQUE: 6 view(s) of the cervical spine were obtained. COMPARISON: None FINDINGS: Normal anterior atlantoaxial articulation. Normal odontoid process. Normal cervical lordosis. Normal vertebral bodies and endplates. Normal disc space heights. Normal visualized intervertebral neuroforamina. The soft tissue structures are unremarkable. RAD/Cerv Spine 4 or 5 Views IMPRESSION: Normal x-ray examination of the visualized cervical spine. No fracture. No disc disease. Electronically Signed: Nathaniel Agrawal MD at 0:18 EST Tel , Service support ,
== END ==
PROVIDERS: Family Provider Family Medicine; PCP Family Medicine; Referring Provider Nurse Practitioner Family; Visit Provider Nurse Practitioner Family
DX: M54.2 Cervicalgia (principal)
CPT/HCPCS: 72050

== ENCOUNTER → 2018-08-09 08:11 | Outpatient (CLI) | payer MEDICARE, SELFPAY ==
--- NOTE | 2018-08-09 08:21 | RAD_ITS ---
STUDY: X-RAY - RIGHT HAND REASON FOR EXAM: Female, 43 years old. Bilateral hand pain TECHNIQUE: 3 view(s) of the hand. COMPARISON: None. FINDINGS: Normal radiocarpal articulation. Normal distal radioulnar joint. Normal visualized carpal bones. Normal carpal articulations Normal carpometacarpal articulation of the thumb. Normal second through fifth carpometacarpal joints. Normal metacarpi. Normal metacarpophalangeal joint of the thumb. Normal interphalangeal joint of the thumb. Normal proximal and distal phalanges of the thumb. Normal metacarpophalangeal joints of the second through fifth fingers. There are mild degenerative changes of the fifth DIP joint. Normal phalanges of the second through fifth fingers. The soft tissue structures are unremarkable. RAD/Hand Min 3 Views IMPRESSION: Mild degenerative changes of the fifth DIP joint. Electronically Signed: Igor Smith MD at 21:37 EST , Service support ,
--- NOTE | 2018-08-09 08:21 | RAD_ITS ---
STUDY: X-RAY - LEFT HAND REASON FOR EXAM: Female, 43 years old. Pain TECHNIQUE: 3 view(s) of the hand. COMPARISON: Previous study of August 08, 2011 FINDINGS: Normal radiocarpal articulation. Normal distal radioulnar joint. Normal visualized carpal bones. Normal carpal articulations Normal carpometacarpal articulation of the thumb. Normal second through fifth carpometacarpal joints. Normal metacarpi. Normal metacarpophalangeal joint of the thumb. Normal interphalangeal joint of the thumb. Normal proximal and distal phalanges of the thumb. Normal metacarpophalangeal joints of the second through fifth fingers. There are mild degenerative changes of the fifth PIP joint and the AP joint. Normal phalanges of the second through fifth fingers. The soft tissue structures are unremarkable. RAD/Hand Min 3 Views IMPRESSION: Mild degenerative changes of the fifth PIP and DIP joints. Electronically Signed: Igor Smith MD at 21:38 EST , Service support ,
[2018-08-09 10:11] LABS: Absolute Lymphocyte Count 2.06 X10^3/ul (0.83-4.51); Absolute Neutrophil Count 3.7 X10^3/uL (2.0-7.7); Basophil# 0.02 X10^3/uL; Basophil% 0.3 % (0-1); Eosinophil# 0.09 X10^3/uL; Eosinophils% 1.4 % (0-5); Hematocrit 42.8 % (37-47); Hemoglobin 14.4 g/dl (12.0-15.0); Lymphocyte # 2.06 X10^3/ul (4.0); Lymphocyte % 32.6 % (19-41); Mean Corp Hgb Conc 33.6 g/gl (32-36); Mean Corpuscular Volume 95.1 fL (81-99); Mean Platelet Vol. 10.6 fl (6.2-12.0); Monocyte# 0.48 X10^3/uL; Monocyte% 7.6 % (0-10); Neutrophil # 3.65 X10^3/uL (2.7-7.7); Neutrophil % 57.9 % (47-70); Platelet Count 242 K/mm3 (150-450); RBC Distribution Width CV 12.8 % (11.6-14.6); RBC Distribution Width SD 43.6 fl (35.1-43.9); White Blood Count 6.3 K/mm3 (4.4-11.0)
[2018-08-09 10:12] LABS: Erythrocyte Sedimentation Rate 8 mm/hr (0-20); POSITIVE COUNT NO; POSITIVE DIFFERENTIAL NO; POSITIVE MORPHOLOGY NO
[2018-08-09 10:38] LABS: ALB/GLOB Ratio 1.1 RATIO (0.9-2.4); AST(SGOT) 19 U/L (15-37); Alanine Aminotransfer ALT/SGPT 29 U/L (13-56); Albumin, Serum 3.9 g/dL (3.2-5.0); Alkaline Phosphatase 91 U/L (45-117); Anion Gap 8 (5-15); BUN 14 mg/dL (7-18); BUN/Creat Ratio 14.8 RATIO (10-20); CRP 3.22 mg/L (0.0-3.0); Chloride 108 mmol/L (98-107); Creatinine, Serum 0.95 mg/dL (0.55-1.02); EST Glomerular Filtration Rate 68 mL/min (>60); Est Glom Filt Rate - Afr Amer 82 mL/min (>60); Globulin 3.7 g/dL (2.2-4.2); Glucose 83 mg/dL (74-106); Protein, Total 7.6 g/dL (6.4-8.2); Rheumatoid Factor < 10.0 IU/mL (<15); Sodium Level 143 mmol/L (136-145)
[2018-08-12 09:51] LABS: CCP IgG Antibodies 6 units (0-19); Hep C Antibodies <0.1 s/co ratio (0.0-0.9)
[2018-08-12 10:04] LABS: ANTINUCLEAR ANTIBODIES DIRECT Negative (Negative)
== END ==
PROVIDERS: Family Provider Family Medicine; PCP Family Medicine
DX: M25.50 Pain in unspecified joint (principal)
CPT/HCPCS: 36415; 73130; 80053; 85025; 85652; 86038; 86140; 86200; 86431; 86803

== ENCOUNTER → 2018-09-12 08:50 | Outpatient (CLI) | payer MEDICARE, MEDICAID, SELFPAY ==
[2018-09-12 10:55] LABS: Estradiol 15.2 pg/mL; Glucose 86 mg/dL (74-106)
[2018-09-12 11:00] LABS: Insulin 3.2 mU/L (2.6-37.6)
[2018-09-13 03:06] LABS: DHEA Sulfate 66.5 ug/dL (57.3-279.2)
[2018-09-13 14:33] LABS: Sex Hormone-binding Globulin 110.2 nmol/L (24.6-122.0)
== END ==
PROVIDERS: PCP Family Medicine; Visit Provider Obstetrics & Gynecology
DX: N95.1 Menopausal and female climacteric states (principal); R68.82 Decreased libido
CPT/HCPCS: 36415; 82533; 82627; 82670; 82947; 83036; 83525; 84270; 84403; 82626

== ENCOUNTER → 2018-11-20 10:43 | Outpatient (CLI) | payer MEDICARE, MEDICAID, SELFPAY ==
[2018-11-20 10:07] VITALS: BMI 28.3
--- NOTE | 2018-11-20 10:44 | RAD_ITS ---
STUDY: X-RAY - RIGHT KNEE REASON FOR EXAM: Bilateral knee pain. TECHNIQUE: 4 view(s) of the knee. COMPARISON: Radiographs 01/10/2017. FINDINGS: Normal visualized distal femur. Normal visualized proximal tibia and fibula. Normal proximal tibiofibular articulation. Normal medial femorotibial compartment. Normal lateral femorotibial compartment. Normal patellofemoral articulation. There is a small joint effusion. RAD/Knee 4 or More Views IMPRESSION: Interval development of small joint effusion. Electronically Signed: Dk Wynn MD at 12:49 EDT Tel , Service support ,
--- NOTE | 2018-11-20 10:44 | RAD_ITS ---
STUDY: X-RAY - LEFT KNEE REASON FOR EXAM: Bilateral knee pain. TECHNIQUE: 4 view(s) of the knee. COMPARISON: Radiographs 12/18/2015. FINDINGS: Normal visualized distal femur. Normal visualized proximal tibia and fibula. Normal proximal tibiofibular articulation. There is mild joint space narrowing of the medial femorotibial compartment. Normal lateral femorotibial compartment. Normal patellofemoral articulation. The soft tissue structures are unremarkable. RAD/Knee 4 or More Views IMPRESSION: Mild arthrosis of the medial femorotibial compartment as on the prior study. Electronically Signed: Dk Wynn MD at 12:52 EDT Tel , Service support ,
== END ==
PROVIDERS: Family Provider Family Medicine; PCP Family Medicine; Referring Provider Orthopaedic Surgery; Visit Provider Orthopaedic Surgery
DX: M25.561 Pain in right knee (principal); M25.562 Pain in left knee
CPT/HCPCS: 73564

== ENCOUNTER → 2018-12-03 09:48 | Outpatient (CLI) | payer MEDICARE, MEDICAID, SELFPAY ==
[2018-11-20 10:07] VITALS: BMI 28.3
--- NOTE | 2018-12-03 09:53 | RAD_ITS ---
STUDY: X-RAY - PELVIS AND RIGHT HIP REASON FOR EXAM: Female, 43 years old. Right hip pain TECHNIQUE: 3 views of the pelvis and hip. COMPARISON: None. FINDINGS: Mild L4-L5 disc degeneration and facet arthropathy/hypertrophy. Normal SI joints. Normal iliac crests and pubic rami. 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 Minimal joint margin osteophytic spurring of the superior acetabulum of the right hip. No other significant degenerative features. No fracture. No significant degenerative features of the left hip joint. Periarticular soft tissues normal. No acute intrapelvic process is evident. 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 No evidence of injury. Electronically Signed: Ga Locke MD at 16:16 EDT Tel , Service support ,
== END ==
PROVIDERS: Family Provider Family Medicine; PCP Family Medicine; Referring Provider Nurse Practitioner Family; Visit Provider Nurse Practitioner Family
DX: M25.551 Pain in right hip (principal)
CPT/HCPCS: 73502

== ENCOUNTER → 2018-12-19 10:52 | Outpatient (CLI) | payer MEDICARE, MEDICAID, SELFPAY ==
[2018-11-20 10:07] VITALS: BMI 28.3
--- NOTE | 2018-12-19 10:57 | RAD_ITS ---
STUDY: X-RAY - LEFT ELBOW REASON FOR EXAM: Female, 43 years old. Epicondylitis TECHNIQUE: 3 view(s) of the elbow. COMPARISON: None. FINDINGS: Normal visualized humerus, radius and ulna. Normal radiocapitellar and ulnotrochlear articulations. Periarticular calcification contiguous with the lateral humeral epicondyle which may be consistent with epicondylitis or calcific tendinitis RAD/Elbow min 3 Views IMPRESSION: Findings consistent with lateral humeral epicondylitis or calcific tendinitis Electronically Signed: Chris Curran MD at 20:45 EDT , Service support ,
== END ==
PROVIDERS: Family Provider Family Medicine; PCP Family Medicine; Referring Provider Family Medicine; Visit Provider Family Medicine
DX: M77.12 Lateral epicondylitis, left elbow (principal)
CPT/HCPCS: 73080

== ENCOUNTER → 2019-01-30 09:40 | Outpatient (CLI) | payer MEDICARE, MEDICAID, SELFPAY ==
[2018-11-20 10:07] VITALS: BMI 28.3
--- NOTE | 2019-01-30 09:46 | RAD_ITS ---
STUDY: X-RAY - LEFT FOOT CLINICAL: Female, 44 years old. Pain of the feet bilaterally, more on the left TECHNIQUE: 3 view(s) of the foot with weightbearing. COMPARISON: None. FINDINGS: Small plantar heel spur. Mild hallux valgus. Mild osteoarthritis of the first MTP joint, and also along the midfoot. Unremarkable subtalar joint. Normal alignment along the Lisfranc joint. No acute displaced fracture, or traumatic subluxation based on current assessment. No gross erosive change. The soft tissue structures are unremarkable. RAD/Foot min 3 Views IMPRESSION: Small plantar heel spur. Mild hallux valgus. 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 Electronically Signed: Ferdinand Lilly MD at 14:58 EDT Tel [phone], Service support ,
--- NOTE | 2019-01-30 09:46 | RAD_ITS ---
STUDY: X-RAY - RIGHT FOOT CLINICAL: Female, 44 years old. Pain of the feet bilaterally, more on the left TECHNIQUE: 3 view(s) of the foot with weightbearing. COMPARISON: None. FINDINGS: Mild hallux valgus. Mild osteoarthritis of the first MTP joint, and also along the midfoot. Unremarkable subtalar joint. Normal alignment along the Lisfranc joint. No acute displaced fracture, or traumatic subluxation based on current assessment. No gross erosive change. The soft tissue structures are unremarkable. RAD/Foot min 3 Views IMPRESSION: Mild hallux valgus. 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 Electronically Signed: Ferdinand Lilly MD at 14:57 EDT Tel [phone], Service support ,
[2019-01-30 12:46] LABS: Absolute Lymphocyte Count 2.06 X10^3/uL (0.83-4.51); Absolute Neutrophil Count 4.3 X10^3/uL (2.0-7.7); Basophil# 0.05 X10^3/uL; Basophil% 0.7 % (0-1); Eosinophil# 0.13 X10^3/uL; Eosinophils% 1.8 % (0-5); Hematocrit 46.1 % (37-47); Hemoglobin 15.4 g/dL (12.0-15.0); Lymphocyte # 2.06 X10^3/ul (4.0); Lymphocyte % 29.1 % (19-41); Mean Corp Hgb Conc 33.4 g/dL (32-36); Mean Corpuscular Hgb 32.8 pg (27.0-32.0); Mean Corpuscular Volume 98.3 fL (81-99); Mean Platelet Vol. 10.5 fl (6.2-12.0); Monocyte# 0.53 X10^3/uL; Monocyte% 7.5 % (0-10); NRBC Flagged by Analyzer 0 % (0-5); Neutrophil % 60.6 % (47-70); Platelet Count 296 K/mm3 (150-450); RBC Distribution Width CV 13.2 % (11.6-14.6); RBC Distribution Width SD 47.6 fl (35.1-43.9); Red Blood Count 4.69 M/mm3 (4.2-5.4); White Blood Count 7.1 K/mm3 (4.4-11.0)
[2019-01-30 12:49] LABS: Erythrocyte Sedimentation Rate 3 mm/hr (0-20)
[2019-01-30 13:07] LABS: Vitamin B12 467 pg/mL (211-911); Vitamin D,25 Hydroxy 50.4 ng/mL (29.95-100.01)
[2019-01-30 13:09] LABS: Anion Gap 6 (5-15); BUN 10 mg/dL (7-18); BUN/Creat Ratio 10.6 RATIO (10-20); CRP 3.46 mg/L (0.0-3.0); Calcium,Total 9.1 mg/dL (8.5-10.1); Chloride 107 mmol/L (98-107); Creatinine, Serum 0.95 mg/dL (0.55-1.02); EST Glomerular Filtration Rate 68 mL/min (>60); Est Glom Filt Rate - Afr Amer 82 mL/min (>60); Glucose 82 mg/dL (74-106); Iron 153 ug/dL (50-170); Magnesium 2.3 mg/dL (1.6-2.6); Potassium 3.8 mmol/L (3.5-5.1); Sodium Level 142 mmol/L (136-145); Thyroid Stim Hormone (TSH) 3.31 uIU/mL (0.358-3.74)
[2019-02-01 13:33] LABS: ANTINUCLEAR ANTIBODIES DIRECT Negative (Negative)
== END ==
PROVIDERS: Family Provider Family Medicine; PCP Family Medicine; Referring Provider Family Medicine; Visit Provider Family Medicine
DX: G62.9 Polyneuropathy, unspecified (principal); M79.671 Pain in right foot; M79.672 Pain in left foot
CPT/HCPCS: 36415; 73630; 80048; 82306; 82607; 82746; 83540; 83735; 84443; 85025; 85652; 86038; 86140

== ENCOUNTER 2019-03-09 15:12 | Emergency (ER) | payer MEDICARE, SELFPAY ==
[2018-11-20 10:07] VITALS: BMI 28.3
[2019-03-09 15:12] VITALS: BP 107/81; PULSE 72; RESP 14; TEMP 36.6; O2SAT 98; BMI 27.4
--- NOTE | 2019-03-09 15:34 | ED.DCSUM_ITS ---
History of Present Illness <MehdiKetan - Last Filed: 03/09/19 16:51> Informant: Patient Onset: Today Narrative: Presents to the ED with left foot and ankle pain after falling 30 minutes prior to arrival. She was stepping out of her storage unit carrying heavy items when she stepped and twisted her left foot/ankle. She reports edema to the lateral aspect of her left foot. She has not taken anything for analgesia. She denies any other injury. <Ara Simeon - Last Filed: 03/09/19 17:12> Chief Complaint: Lower Extremity Injury Past Medical History - Family History Maternal Family History: Family History (Last Updated 07/25/17 @ 08:26 by Keya Ndiaye) Mother Arthritis Brother Cerebral palsy Other Cancer Heart disease <MehdiKetan - Last Filed: 03/09/19 16:51> Surgical History: hysterectomy, - - She had an expiratory laparotomy with bowel resection 20 years ago and in 2001 she had and another exploratory laparotomy with small bowel resection for small bowel obstruction. Smoking Status: Former smoker - Family History Maternal Family History: Family History (Last Updated 07/25/17 @ 08:26 by Keya Ndiaye) Mother Arthritis Brother Cerebral palsy Other Cancer Heart disease Family History: Reports: Hypertension <Ara Simeon - Last Filed: 03/09/19 17:12> - Allergies and Home Meds Allergies/Adverse Reactions: Allergies amoxicillin Allergy (Mild, Verified 05/08/18 15:56) unknown sulfamethoxazole [From Bactrim] Allergy (Mild, Verified 05/08/18 15:56) unknown trimethoprim [From Bactrim] Allergy (Mild, Verified 05/08/18 15:56) unknown aripiprazole [From Abilify] Allergy (Verified 05/08/18 15:56) Unknown citalopram hydrobromide [From Celexa] Allergy (Verified 05/08/18 15:56) Unknown codeine Allergy (Verified 05/08/18 15:56) Other BACK PAIN doxepin Allergy (Verified 05/08/18 15:56) Pain in joints duloxetine HCl [From Cymbalta] Allergy (Verified 05/08/18 15:56) Shortness of breath gabapentin [From Neurontin] Allergy (Verified 03/09/19 15:17) Other lamotrigine Allergy (Verified 05/08/18 15:56) Itching Penicillins Allergy (Verified 05/08/18 15:56) Shortness of breath pregabalin [From Lyrica] Allergy (Verified 03/09/19 15:17) Rash venlafaxine HCl [From Effexor] Allergy (Verified 05/08/18 15:56) Other LETHARGY Primary Care Physician: Andrae Larson MD [Primary Care Provider] - Chris Guillory DPM [STAFF PHYSICIAN] - Keep Yaquelin appointment Review of Systems General: Denies: Chills, Fever, Sweats Eyes: Denies: Visual changes - bilaterally, Diplopia ENT: Denies: Rhinorrhea, Sore throat Cardiovascular: Denies: Chest pain, Palpitations Respiratory: Denies: Dyspnea, Cough, Dyspnea on exertion Gastrointestinal: Denies: Abdominal pain, Nausea, Vomiting, Diarrhea, Melena, Hematochezia Genitourinary: Denies: Dysuria, Hematuria, Frequency Musculoskeletal: Reports: - - L foot/ankle pain. Denies: Back pain, Extremity Pain Skin: Denies: Rash, Wounds Neurological: Denies: Headache, Weakness, Numbness <Ara Simeon - Last Filed: 03/09/19 17:12> Physical Exam Vital Signs/Narrative: Vital Signs Temp Pulse Resp BP Pulse Ox 03/09/19 15:12 97.8 F 72 14 107/81 H 98 <Ketan Harding - Last Filed: 03/09/19 16:51> Vital Signs/Narrative: Vital Signs Temp Pulse Resp BP Pulse Ox 03/09/19 15:12 97.8 F 72 14 107/81 H 98 General: Well nourished, Well developed, No Acute Distress Head: Normocephalic, Atraumatic Eyes: Perrl, EOMI ENT: Moist mucous membranes, No rhinorrhea Neck: Supple, Nontender Cardiovascular: Regular rate, Regular rhythm, No murmurs Respiratory: No distress, CTA bilaterally, Chest nontender Abdomen: Soft, Nontender, Nondistended, Normal bowel sounds Back: Nontender, Normal Inspection Extremities: No edema, - - Nurse to palpation over the left base of the fifth metatarsal. There is edema and ecchymosis overlying this area. Patient also has some left lateral ankle tenderness to palpation. Full range of motion of left lower extremity. DP and PT pulses 2+. Normal capillary refill. Normal sensation. Skin: Normal color, No rash Neurological: Alert, Oriented x3, Cranial nerves II-XII grossly intact, Normal Strength, Normal Sensation Psychological: Normal affect, Normal Mood <MalachiMarion landerosily - Last Filed: 03/09/19 17:12> Diagnostic/Tx/Re-eval - Medical Decision Making Since patient with our physician assistant professor of religion. Left proximal small toe metatarsal proximal and pain after stepping down. No other injuries. Exam HEENT, neck, heart, lungs, abdomen unremarkable. Moving all 4 extremities. Neurovascular intact. Left hip, left knee and left ankle are nontender nonswollen with full range of motion. No deformity. Left foot swelling and tenderness on the proximal fifth metatarsal. Otherwise foot neurovascular intact skin intact. Left foot x-ray fracture proximal fifth metatarsal. Ankle x-ray shows the same. 3 views of the foot read by us. 3 views of the ankle read by us. Impression: Left foot fifth or small toe metatarsal proximal and fracture Postop shoe. Ice and elevate. Motrin Tylenol. Patient is already established with Dr. Chris Guillory of podiatry and will follow up with him on Monday. She did not want anything stronger for pain. <Ketan Harding - Last Filed: 03/09/19 16:51> - Medical Decision Making Patient presents to the ED following injury to her left foot and ankle. She was given ibuprofen here for analgesia. X-ray indicates Bob fracture. Patient was placed in a postoperative shoe and provided with crutches. She may weight- bear as tolerated. She was given a prescription for several [place] tablets for breakthrough pain. She is established with outside parts salesman, Dr. Guillory, and has an appointment scheduled for Monday. She was advised to maintain this appointment. She is educated on rice therapy. Educated on signs/symptoms to return to the ED and provided with discharge instructions. She is agreeable to plan. Impression: Left foot fifth metatarsal fracture. Disposition: Home stable <Ara Simeon - Last Filed: 03/09/19 17:12> ED Disposition <Ketan Harding - Last Filed: 03/09/19 16:51> <Ara Simeon - Last Filed: 03/09/19 17:12> - Plan for ED Patient: Disposition: Home or Assisted Living Diagnosis: Bob fracture Instructions: FRACTURE, Foot Prescriptions: Hydrocodone/Acetaminophen [[place] 5-325 Tablet] 1 ea PO Q6H PRN PRN 3 Days #12 tab PRN Reason: Pain Score 6-10/10 Prescription Printed Referrals: Andrae Larson MD [Primary Care Provider] - Chris Guillory DPM [STAFF PHYSICIAN] - Keep Yaquelin appointment
--- NOTE | 2019-03-09 15:35 | RAD_ITS ---
STUDY: X-RAY - LEFT ANKLE REASON FOR EXAM: Female, 44 years old. Fall and swelling with pain TECHNIQUE: 3 view(s) of the ankle. COMPARISON: None. FINDINGS: Normal visualized distal tibia and fibula. Normal medial and lateral malleoli. Normal tibiotalar articulation and ankle mortise. Normal visualized talus and calcaneus. The visualized subtalar, talonavicular, calcaneocuboid and tarsal articulations are normal. The soft tissue structures are unremarkable. Transverse fracture of the base of the fifth metatarsal. RAD/Ankle min 3 Views IMPRESSION: Transverse fracture of the base of the fifth metatarsal. No acute injury is seen involving the ankle. Electronically Signed: Topher Roberts MD at 16:12 EDT Tel , Service support ,
--- NOTE | 2019-03-09 15:35 | RAD_ITS ---
STUDY: X-RAY - LEFT FOOT CLINICAL: Female, 44 years old. Fall, pain and swelling TECHNIQUE: 3 view(s) of the foot. COMPARISON: 01/30/2019 FINDINGS: Normal talus, calcaneus, and tarsal bones. Normal visualized subtalar, talonavicular, calcaneocuboid, tarsal and tarsometatarsal articulations. Acute transverse fracture of the base of the fifth metatarsal. Normal metatarsophalangeal joint of the great toe. Normal tibial and fibular sesamoid bones. Normal interphalangeal joint of the great toe. Normal phalanges of the great toe. Normal second through fifth metatarsophalangeal joints. Normal interphalangeal joints and phalanges of the lesser toes. The soft tissue structures are unremarkable. RAD/Foot min 3 Views IMPRESSION: Acute transverse fracture of the base of the fifth metatarsal. Electronically Signed: Topher Roberts MD at 16:15 EDT Tel , Service support ,
[2019-03-09] MEDS: Ibuprofen 600 MG Tablet PO (16:12)
== END 2019-03-09 17:13 | disposition home or self-care (01) ==
PROVIDERS: Emergency Provider Physician Assistant; Family Provider Family Medicine; PCP Family Medicine
DX: S92.352A Displaced fracture of fifth metatarsal bone, left foot, initial encounter for closed fracture (principal); X50.1XXA Overexertion from prolonged static or awkward postures, initial encounter; Y93.9 Activity, unspecified; Y92.89 Other specified places as the place of occurrence of the external cause; Y99.9 Unspecified external cause status; K56.609 Unspecified intestinal obstruction, unspecified as to partial versus complete obstruction; Z82.49 Family history of ischemic heart disease and other diseases of the circulatory system; Z87.891 Personal history of nicotine dependence; Z88.0 Allergy status to penicillin; Z88.1 Allergy status to other antibiotic agents; Z88.2 Allergy status to sulfonamides; Z88.8 Allergy status to other drugs, medicaments and biological substances; Z90.49 Acquired absence of other specified parts of digestive tract; Z90.710 Acquired absence of both cervix and uterus
CPT/HCPCS: 73610; 73630; 99284

== ENCOUNTER 2019-03-26 15:19 | Emergency (ER) | payer MEDICARE, SELFPAY ==
[2019-03-26 15:20] VITALS: BP 94/65; PULSE 78; RESP 16; TEMP 36.3; O2SAT 99; BMI 27.4
--- NOTE | 2019-03-26 16:31 | RAD_ITS ---
STUDY: X-RAY - LEFT KNEE REASON FOR EXAM: Female, 44 years old. Trauma TECHNIQUE: 4 view(s) of the knee. COMPARISON: None. FINDINGS: Normal visualized distal femur. Normal visualized proximal tibia and fibula. Normal proximal tibiofibular articulation. Normal medial femorotibial compartment. Normal lateral femorotibial compartment. Normal patellofemoral articulation. The soft tissue structures are unremarkable. RAD/Knee 4 or More Views IMPRESSION: Normal x-ray examination of the knee. Electronically Signed: Chris Curran MD at 17:40 EDT , Service support ,
--- NOTE | 2019-03-26 16:31 | RAD_ITS ---
STUDY: X-RAY - PELVIS AND LEFT HIP REASON FOR EXAM: Female, 44 years old. Pain TECHNIQUE: 3 views of the pelvis and hip. COMPARISON: None. FINDINGS: There is a non-specific bowel gas pattern. Normal visualized soft tissue structures. Normal bilateral iliac wings, sacroiliac joints and visualized sacrum. Normal bilateral superior and inferior pubic rami. Normal pubic symphysis. Normal bilateral ischial tuberosities. Normal visualized femoral head. Normal acetabulum. Normal hip joint. RAD/HIP, UNI W/ Pelvis 2-3 Views IMPRESSION: Normal x-ray examination of the pelvis and hip. Electronically Signed: Chris Curran MD at 17:41 EDT , Service support ,
--- NOTE | 2019-03-26 16:31 | RAD_ITS ---
STUDY: X-RAY - LEFT FOOT CLINICAL: Female, 44 years old. Trauma TECHNIQUE: 3 view(s) of the foot. COMPARISON: None. FINDINGS: Normal talus,, and tarsal bones. Tiny plantar calcaneal spur Normal visualized subtalar, talonavicular, calcaneocuboid, tarsal and tarsometatarsal articulations. Acute avulsion fracture of the base of the fifth metatarsal with mild separation of fracture fragments. Hallux valgus deformity of the metatarsophalangeal joint of the great toe. Normal tibial and fibular sesamoid bones. Normal interphalangeal joint of the great toe. Normal phalanges of the great toe. Normal second through fifth metatarsophalangeal joints. Normal interphalangeal joints and phalanges of the lesser toes. The soft tissue structures are unremarkable. RAD/Foot min 3 Views IMPRESSION: Acute avulsion fracture of the base of the fifth metatarsal Electronically Signed: Chris Curran MD at 17:42 EDT , Service support ,
--- NOTE | 2019-03-26 16:35 | ED.DCSUM_ITS ---
- ER Visit Summary Date of Service: 03/26/19 Chief Complaint: Left leg pain History of Present Illness: The patient is a 44 F presenting with left leg pain. Patient broke her foot 2 weeks ago. She has been wearing a walking boot. This is been causing her to limp and walk differently than usual. She complains of pain in her left ankle, knee, and hip. She also states she was at [employer] yesterday and was doing exercises with her leg which involved swinging her legs. She denies new injury. Denies chest pain or shortness of breath. Denies other complaints. Physical Examination: Vitals are stable. Patient is afebrile. Alert no acute distress. HEENT exam is unremarkable. Neck is supple. Lungs are clear and equal bilaterally. Heart is regular rate and rhythm. Abdomen is soft nontender nondistended. Extremities mild left calf tenderness. Mild diffuse left foot tenderness. Active full range of motion. Normal pulses. Skin is warm and dry. No focal neurologic deficit. Remainder of exam is unremarkable. Emergency Department Course and Treatment: Left foot xray shows acute avulsion fracture of the base of the fifth metatarsal. Left ankle xray is normal x-ray examination of the ankle. Normal x-ray examination of the knee. Normal x-ray examination of the pelvis and hip. Normal venous Doppler ultrasound of the lower extremity. Patient was given Toradol, Norflex IM with improvement. She is advised to continue her walking boot and follow-up with Dr. Guillory. She has [place] at home and will try this for pain as needed. Advised to return to ED for worsening complaints. Disposition: Discharge home Impression: Left lower extremity pain, left fifth metatarsal fracture This note was generated with [employer] dictation software. It may contain incorrect words, spelling, and punctuation that were not noted in review of the chart prior to signing ED Disposition - Plan for ED Patient: Referrals: Andrae Larson MD [Primary Care Provider] -
--- NOTE | 2019-03-26 16:46 | US_ITS ---
STUDY: VENOUS DOPPLER ULTRASOUND - LEFT LOWER EXTREMITY REASON FOR EXAM: Female, 44 years old. Swelling TECHNIQUE: Ultrasound evaluation of the deep vein system to include marie-scale imaging and compression was performed. Marie-scale imaging and Doppler sonographic evaluation, including duplex spectral analysis and qualitative color flow sonography, was performed. COMPARISON: None. FINDINGS: Common Femoral Vein: Normal compression, spontaneity and augmentation. Normal color Doppler. Common Femoral Vein/Greater Saphenous Junction: Normal compression, spontaneity and augmentation. Normal color Doppler. Deep Femoral Vein: Normal compression, spontaneity and augmentation. Normal color Doppler. Femoral Proximal: Normal compression, spontaneity and augmentation. Normal color Doppler. Femoral Middle: Normal compression, spontaneity and augmentation. Normal color Doppler. Femoral Distal: Normal compression, spontaneity and augmentation. Normal color Doppler. Popliteal Vein: Normal compression, spontaneity and augmentation. Normal color Doppler. Posterior Tibial Vein: Normal compression, spontaneity and augmentation. Normal color Doppler. Peroneal Vein: Normal compression, spontaneity and augmentation. Normal color Doppler. US/Venous Duplex Imag/Limited/Uni IMPRESSION: Normal venous Doppler ultrasound of the lower extremity. Electronically Signed: Chris Curran MD at 17:43 EDT , Service support ,
[2019-03-26] MEDS: Ketorolac 60 MG/2 ML Vial IM (16:59)
[2019-03-26] MEDS: Orphenadrine 60 MG/2 ML Ampul IM (17:00)
--- NOTE | 2019-03-26 17:05 | RAD_ITS ---
STUDY: X-RAY - LEFT ANKLE REASON FOR EXAM: Female, 44 years old. Pain TECHNIQUE: 3 view(s) of the ankle. COMPARISON: None. FINDINGS: Normal visualized distal tibia and fibula. Normal medial and lateral malleoli. Normal tibiotalar articulation and ankle mortise. Normal visualized talus and calcaneus. The visualized subtalar, talonavicular, calcaneocuboid and tarsal articulations are normal. There is an acute avulsion fracture of the base of the fifth metatarsal with mild separation of fracture fragments The soft tissue structures are unremarkable. RAD/Ankle min 3 Views IMPRESSION: Normal x-ray examination of the ankle. Acute avulsion fracture of the base of the fifth metatarsal Electronically Signed: Chris Curran MD at 17:39 EDT , Service support ,
--- NOTE | 2019-03-26 17:54 | ED.DEP ---
ED Disposition - Plan for ED Patient: Instructions: FRACTURE, Foot Referrals: Andrae Larson MD [Primary Care Provider] - Chris Guillory DPM [STAFF PHYSICIAN] -
== END 2019-03-26 18:12 | disposition home or self-care (01) ==
LOC: ED 16:35
PROVIDERS: Emergency Provider Emergency Medicine; Family Provider Family Medicine; PCP Family Medicine
DX: S92.352A Displaced fracture of fifth metatarsal bone, left foot, initial encounter for closed fracture (principal); X58.XXXA Exposure to other specified factors, initial encounter; M25.572 Pain in left ankle and joints of left foot; M25.552 Pain in left hip; M25.562 Pain in left knee
CPT/HCPCS: 73502; 73564; 73610; 73630; 93971; 96372; 99282

== ENCOUNTER 2019-04-19 05:52 | Emergency (ER) | payer MEDICARE, SELFPAY ==
[2019-04-19 05:52] VITALS: BP 147/99; PULSE 54; RESP 19; TEMP 36.7; O2SAT 100; BMI 29.0
--- NOTE | 2019-04-19 06:05 | EKG12_ITS ---
Test Reason : CP Blood Pressure : / mmHG Vent. Rate : 053 BPM Atrial Rate : 053 BPM P-R Int : 132 ms QRS Dur : 084 ms QT Int : 452 ms P-R-T Axes : 038 052 057 degrees QTc Int : 424 ms Sinus bradycardia Otherwise normal ECG Confirmed by ADIA SANFORD, EMILY ([id number]), development editor KANA DE LA ROSA ([id number]) on 04/23/2019 2:14:27 PM Referred By: UZMA Confirmed By:EMILY CHEEK MD
--- NOTE | 2019-04-19 06:06 | ED.VIS.GEN ---
History of Present Illness Chief Complaint: Chest Pain Narrative: Patient is a 44-year-old female who presents with chest pain. This is been going on for a full day. Her symptoms have never completely resolved. She describes it as aching in the center of her chest with radiation through to her back and shoulders. She also complains of pain across the upper abdomen. She reports nausea without vomiting. No diarrhea. She has had a prior cholecystectomy. She has had prior similar symptoms with anxiety but never to this extent. No fevers. No recent illness. Past Medical History - Allergies and Home Meds Allergies/Adverse Reactions: Allergies amoxicillin Allergy (Mild, Verified 04/19/19 06:01) unknown sulfamethoxazole [From Bactrim] Allergy (Mild, Verified 04/19/19 06:01) unknown trimethoprim [From Bactrim] Allergy (Mild, Verified 04/19/19 06:01) unknown aripiprazole [From Abilify] Allergy (Verified 04/19/19 06:01) Unknown citalopram hydrobromide [From Celexa] Allergy (Verified 04/19/19 06:01) Unknown codeine Allergy (Verified 04/19/19 06:01) Other BACK PAIN doxepin Allergy (Verified 04/19/19 06:01) Pain in joints duloxetine HCl [From Cymbalta] Allergy (Verified 04/19/19 06:01) Shortness of breath gabapentin [From Neurontin] Allergy (Verified 04/19/19 06:01) Other lamotrigine Allergy (Verified 04/19/19 06:01) Itching Penicillins Allergy (Verified 04/19/19 06:01) Shortness of breath pregabalin [From Lyrica] Allergy (Verified 04/19/19 06:01) Rash venlafaxine HCl [From Effexor] Allergy (Verified 04/19/19 06:01) Other LETHARGY Primary Care Physician: Andrae Larson MD [Primary Care Provider] - Past Medical History: - - Anxiety, fibromyalgia Surgical History: hysterectomy, - - She had an expiratory laparotomy with bowel resection 20 years ago and in 2001 she had and another exploratory laparotomy with small bowel resection for small bowel obstruction. Smoking Status: Never smoker - Family History Maternal Family History: Family History (Last Updated 07/25/17 @ 08:26 by Keya Ndiaye) Mother Arthritis Brother Cerebral palsy Other Cancer Heart disease Family History: Reports: Hypertension Review of Systems All systems negative except as indicated General: Denies: Fever Cardiovascular: Reports: Chest pain Respiratory: Reports: Dyspnea Gastrointestinal: Reports: Abdominal pain, Nausea. Denies: Vomiting, Diarrhea Physical Exam Vital Signs/Narrative: Vital Signs Temp Pulse Resp BP Pulse Ox 04/19/19 05:52 98.0 F 54 L 19 H 147/99 H 100 Inital Vital Signs reviewed: Yes General: Well nourished Head: Normocephalic Eyes: EOMI ENT: Moist mucous membranes Neck: Supple Cardiovascular: Regular rate, Regular rhythm Respiratory: No distress, CTA bilaterally, Chest tenderness Abdomen: Soft, Tender - Epigastric abdominal tenderness, without guarding or rebound Skin: Normal color Neurological: Alert Psychological: Normal affect Diagnostic/Tx/Re-eval 04/19/19 06:40 Chest PA and Lateral [RAD] Stat Laboratory Results 04/19/19 04/19/19 06:15 06:15 WBC 6.0 RBC 4.49 Hgb 14.5 Hct 41.8 MCV 93.1 MCH 32.3 H MCHC 34.7 RDW Std Deviation 41.5 RDW Coeff of Janet 12.0 Plt Count 236 MPV 9.6 Immature Gran % (Auto) 0.500 Neut % (Auto) 59.4 Lymph % (Auto) 31.5 [place]ill % (Auto) 6.6 Eos % (Auto) 1.3 Baso % (Auto) 0.7 Absolute Neuts (auto) 3.6 Absolute Lymphs (auto) 1.90 Nucleated RBC % 0 Sodium 143 Potassium 3.4 L Chloride 111 H Carbon Dioxide 24.0 Anion Gap 8 BUN 12 Creatinine 0.87 Estim Creat Clear Calc 70.51 Est GFR (MDRD) Af Amer 91 Est GFR (MDRD) Non-Af 75 BUN/Creatinine Ratio 13.8 Glucose 102 Calcium 8.9 Total Bilirubin 0.40 AST 10 L ALT 15 Alkaline Phosphatase 87 Troponin I < 0.015 Total Protein 7.1 Albumin 3.5 Globulin 3.6 Albumin/Globulin Ratio 1.0 Lipase 268 - Medical Decision Making Laboratory studies are normal. With 24 hours of pain and no ischemic changes on EKG and negative troponin I believe cardiac ischemia is ruled out. Given her epigastric pain I did also check hepatic function and lipase which is normal. She has already had a cholecystectomy. Chest x-ray on my review shows no acute process. Patient was advised to follow-up with primary care physician. All questions answered bedside, patient agreeable to plan was discharged home. ED Disposition - Plan for ED Patient: Disposition: Home or Assisted Living Diagnosis: Chest pain, Abdominal pain Instructions: CHEST PAIN, Uncertain Cause, ABDOMINAL PAIN, Unknown Cause, (Female) Referrals: Andrae Larson MD [Primary Care Provider] -
[2019-04-19] MEDS: Ondansetron 4 MG/2 ML Vial IV (06:19)
[2019-04-19] MEDS: Ketorolac 30 MG/ML Syringe IV (06:19)
[2019-04-19 06:22] LABS: Absolute Neutrophil Count 3.6 X10^3/uL (2.0-7.7); Basophil# 0.04 X10^3/uL; Basophil% 0.7 % (0-1); Eosinophil# 0.08 X10^3/uL; Eosinophils% 1.3 % (0-5); Hematocrit 41.8 % (37-47); Hemoglobin 14.5 g/dL (12.0-15.0); Lymphocyte % 31.5 % (19-41); Mean Corp Hgb Conc 34.7 g/dL (32-36); Mean Corpuscular Hgb 32.3 pg (27.0-32.0); Mean Corpuscular Volume 93.1 fL (81-99); Mean Platelet Vol. 9.6 fl (6.2-12.0); Monocyte% 6.6 % (0-10); NRBC Flagged by Analyzer 0 % (0-5); Neutrophil # 3.58 X10^3/uL (2.7-7.7); Neutrophil % 59.4 % (47-70); Platelet Count 236 K/mm3 (150-450); RBC Distribution Width SD 41.5 fl (35.1-43.9); Red Blood Count 4.49 M/mm3 (4.2-5.4)
--- NOTE | 2019-04-19 06:40 | RAD_ITS ---
STUDY: X-RAY CHEST REASON FOR EXAM: Female, 44 years old. Chest pain. TECHNIQUE: PA and lateral views of the chest. COMPARISON: None. FINDINGS: The lungs are clear and expanded. There is no demonstrated pleural abnormality. Normal size heart. Normal mediastinum and griselda. Normal visualized pulmonary arteries. Normal visualized aortic arch and descending thoracic aorta. Normal visualized thoracic spine. Normal visualized ribs, clavicles, and shoulders. There is no demonstrated abnormality of the visualized soft tissue structures of the upper abdomen. RAD/Chest PA and Lateral IMPRESSION: Normal x-ray examination of the chest. Electronically Signed: Arlene Ramon MD at 7:32 EST , Service support ,
[2019-04-19 06:43] LABS: AST(SGOT) 10 U/L (15-37); Alanine Aminotransfer ALT/SGPT 15 U/L (13-56); Albumin, Serum 3.5 g/dL (3.2-5.0); Alkaline Phosphatase 87 U/L (45-117); Anion Gap 8 (5-15); BUN 12 mg/dL (7-18); BUN/Creat Ratio 13.8 RATIO (10-20); Calcium,Total 8.9 mg/dL (8.5-10.1); Chloride 111 mmol/L (98-107); Creatinine, Serum 0.87 mg/dL (0.55-1.02); EST Glomerular Filtration Rate 75 mL/min (>60); Est Glom Filt Rate - Afr Amer 91 mL/min (>60); Estimated Creatinine Clearance 70.51 ml/min; Globulin 3.6 g/dL (2.2-4.2); Glucose 102 mg/dL (74-106); Lipase 268 U/L (73-393); Potassium 3.4 mmol/L (3.5-5.1); Protein, Total 7.1 g/dL (6.4-8.2); Sodium Level 143 mmol/L (136-145)
[2019-04-19 07:05] VITALS: BP 135/79; PULSE 63; RESP 16; O2SAT 99
== END 2019-04-19 07:06 | disposition home or self-care (01) ==
PROVIDERS: Emergency Provider Emergency Medicine; Family Provider Family Medicine; PCP Family Medicine
DX: R07.9 Chest pain, unspecified (principal); R10.9 Unspecified abdominal pain; Z90.49 Acquired absence of other specified parts of digestive tract; Z88.0 Allergy status to penicillin; Z88.1 Allergy status to other antibiotic agents; Z82.49 Family history of ischemic heart disease and other diseases of the circulatory system; Z88.2 Allergy status to sulfonamides; Z88.8 Allergy status to other drugs, medicaments and biological substances; Z90.710 Acquired absence of both cervix and uterus; M79.7 Fibromyalgia; F41.9 Anxiety disorder, unspecified
CPT/HCPCS: 71046; 80053; 83690; 84484; 85025; 93005; 99284; A4216; J2405

== ENCOUNTER → 2019-04-19 09:53 | Outpatient (CLI) | payer MEDICARE, SELFPAY ==
[2019-04-19 05:52] VITALS: BMI 29.0
--- NOTE | 2019-04-19 10:17 | RAD_ITS ---
STUDY: X-RAY - ABDOMEN/PELVIS REASON FOR EXAM: Female, 44 years old. Pain. TECHNIQUE: Single AP view of the abdomen / pelvis. COMPARISON: 10/07/2014. FINDINGS: Lung base is not included in the [id number]. There is an unremarkable bowel gas pattern. There is no demonstrated free abdominal air. The visualized liver, spleen and kidneys are grossly normal in size and morphology. Normal soft tissue structures. There are diffuse degenerative changes of the visualized lumbar spine and bilateral hips. RAD/Abdomen Single View IMPRESSION: Nonspecific gas pattern. Electronically Signed: Arlene Ramon MD at 0:13 EST , Service support ,
== END ==
PROVIDERS: Family Provider Family Medicine; PCP Family Medicine; Referring Provider Family Medicine; Visit Provider Family Medicine
DX: R10.9 Unspecified abdominal pain (principal)
CPT/HCPCS: 71046; 74018; 80053; 83690; 84484; 85025; 93005; 96374; 96375; 99284; A4216; J2405

== ENCOUNTER → 2019-09-13 09:49 | Outpatient (CLI) | payer MEDICARE, MEDICAID, SELFPAY ==
[2019-09-13 12:22] LABS: Erythrocyte Sedimentation Rate 4 mm/hr (0-20)
[2019-09-13 12:24] LABS: Hematocrit 43.3 % (37-47); Hemoglobin 14.8 g/dL (12.0-15.0); Mean Corp Hgb Conc 34.2 g/dL (32-36); Mean Corpuscular Volume 93.7 fL (81-99); Mean Platelet Vol. 10.4 fl (6.2-12.0); Platelet Count 282 K/mm3 (150-450); RBC Distribution Width CV 12.3 % (11.6-14.6); RBC Distribution Width SD 42.1 fl (35.1-43.9); Red Blood Count 4.62 M/mm3 (4.2-5.4); White Blood Count 7.4 K/mm3 (4.4-11.0)
[2019-09-13 12:46] LABS: Vitamin D,25 Hydroxy 65.2 ng/mL
[2019-09-13 13:01] LABS: ALB/GLOB Ratio 1.1 RATIO (0.9-2.4); AST(SGOT) 21 U/L (15-37); Alanine Aminotransfer ALT/SGPT 31 U/L (13-56); Alkaline Phosphatase 108 U/L (45-117); Anion Gap 5 (5-15); BUN 9 mg/dL (7-18); BUN/Creat Ratio 10.4 RATIO (10-20); Calcium,Total 9.1 mg/dL (8.5-10.1); Chloride 107 mmol/L (98-107); Creatinine, Serum 0.86 mg/dL (0.55-1.02); EST Glomerular Filtration Rate 75 mL/min (>60); Est Glom Filt Rate - Afr Amer 91 mL/min (>60); Globulin 3.8 g/dL (2.2-4.2); Glucose 88 mg/dL (74-106); Potassium 3.7 mmol/L (3.5-5.1); Protein, Total 7.8 g/dL (6.4-8.2); Sodium Level 141 mmol/L (136-145)
== END ==
PROVIDERS: PCP Family Medicine; Referring Provider Family Medicine; Visit Provider Family Medicine
DX: M79.7 Fibromyalgia (principal); E55.9 Vitamin D deficiency, unspecified
CPT/HCPCS: 36415; 80053; 82306; 84443; 85027; 85652

== ENCOUNTER → 2019-12-16 07:53 | Outpatient (CLI) | payer MEDICARE, MEDICAID, SELFPAY ==
--- NOTE | 2019-12-16 07:57 | RAD_ITS ---
STUDY: X-RAY - ESOPHAGUS (BARIUM SWALLOW) WITH FLUOROSCOPY REASON FOR EXAM: Female, 44 years old. DYSPHAGIA, CHOKE ON SALIVA/WATER, THROAT STICKING TOGETHER X MONTHS. 11 FL. SPOTS TECHNIQUE: 11 view(s) of the esophagus were obtained following swallowing of barium. FLUOROSCOPY TIME (if supplied): (0:31) minutes/seconds COMPARISON: Comparison is made with prior study dated April 01, 2013. FINDINGS: There is no demonstrated esophageal foreign body. There is no demonstrated stricture or mucosal abnormality. Normal gastroesophageal junction, without a demonstrated hiatal hernia. The patient ingested a 12 mm tablet of barium without any difficulty. Normal visualized aortic arch and descending thoracic aorta. Normal visualized pulmonary parenchyma. Normal visualized osseous structures of the thorax. RAD/Esophagus Dual Contrast IMPRESSION: Normal plain film x-ray examination (barium swallow) of the esophagus. Electronically Signed: Wolfgang Lunsford, at 10:06 EDT , Service support ,
== END ==
PROVIDERS: PCP Family Medicine; Referring Provider Otolaryngology Otolaryngology/Facial Plastic Surgery; Visit Provider Otolaryngology Otolaryngology/Facial Plastic Surgery
DX: R13.10 Dysphagia, unspecified (principal)
CPT/HCPCS: 74221

== ENCOUNTER 2019-12-20 03:01 | Emergency (ER) | payer MEDICARE, MEDICAID, SELFPAY ==
[2019-12-20 03:02] VITALS: BP 130/104; PULSE 68; RESP 18; TEMP 36.6; O2SAT 100; BMI 27.6
--- NOTE | 2019-12-20 03:17 | EKG12_ITS ---
Test Reason : NUMB/TING Blood Pressure : / mmHG Vent. Rate : 060 BPM Atrial Rate : 060 BPM P-R Int : 150 ms QRS Dur : 086 ms QT Int : 402 ms P-R-T Axes : 115 014 134 degrees QTc Int : 402 ms Normal sinus rhythm Low voltage QRS Possible Inferior infarct , age undetermined Abnormal ECG Confirmed by ADIA SANFORD, EMILY ([id number]), city editor FANNIE ALMONTE ([id number]) on 12/23/2019 8:18:37 AM Referred By: MORENA Confirmed By:EMILY CHEEK MD
--- NOTE | 2019-12-20 03:17 | RAD_ITS ---
STUDY: X-RAY CHEST REASON FOR EXAM: Female, 44 years old. Chest pain for past few days. TECHNIQUE: Single frontal view of the chest. COMPARISON: April 19, 2019. FINDINGS: The lungs are clear and expanded. There is no demonstrated pleural abnormality. Normal size heart. Normal mediastinum and griselda. Normal visualized pulmonary arteries. Normal visualized aortic arch and descending thoracic aorta. There are diffuse degenerative changes of the visualized thoracic spine. Normal visualized ribs, clavicles, and shoulders. There is no demonstrated abnormality of the visualized soft tissue structures of the upper abdomen. RAD/Chest 1 View (Portable) IMPRESSION: No acute cardiopulmonary disease identified. Electronically Signed: Sukhjinder Lazo, at 4:18 EDT Tel , Service support ,
--- NOTE | 2019-12-20 03:25 | ED.DCSUM_ITS ---
History of Present Illness Chief Complaint: Chest Pain Informant: Patient Onset: Today Quality: Sharp Location: Substernal Current Severity: Mild Narrative: 44-year-old female presents with concern for chest pain. States that over the past few weeks she has had intermittent difficulty with swallowing. States that she was seen by ENT yesterday who felt that it was reflux. States that she is also had numbness and tingling throughout her entire body. States that she began developing chest pain this evening. States is approximately 4 to 5 hours ago. States it is retrosternal and sharp. Denies any shortness of breath, nausea, vomiting, diaphoresis. Denies any history of DVT or pulmonary embolism. Denies any recent long trips, surgeries, hospitalizations. Patient denies any drugs or alcohol. States that she did recently start using a vape approximately 2 weeks ago. Past Medical History - Allergies and Home Meds Allergies/Adverse Reactions: Allergies amoxicillin Allergy (Mild, Verified 04/19/19 06:01) unknown sulfamethoxazole [From Bactrim] Allergy (Mild, Verified 04/19/19 06:01) unknown trimethoprim [From Bactrim] Allergy (Mild, Verified 04/19/19 06:01) unknown aripiprazole [From Abilify] Allergy (Verified 04/19/19 06:01) Unknown citalopram hydrobromide [From Celexa] Allergy (Verified 04/19/19 06:01) Unknown codeine Allergy (Verified 04/19/19 06:01) Other BACK PAIN doxepin Allergy (Verified 04/19/19 06:01) Pain in joints duloxetine HCl [From Cymbalta] Allergy (Verified 04/19/19 06:01) Shortness of breath gabapentin [From Neurontin] Allergy (Verified 04/19/19 06:01) Other lamotrigine Allergy (Verified 04/19/19 06:01) Itching Penicillins Allergy (Verified 04/19/19 06:01) Shortness of breath pregabalin [From Lyrica] Allergy (Verified 04/19/19 06:01) Rash venlafaxine HCl [From Effexor] Allergy (Verified 04/19/19 06:01) Other LETHARGY Primary Care Physician: Andrae Larson MD [Primary Care Provider] - Sammy Kincaid MD [STAFF PHYSICIAN] - Prior records reviewed: Yes Past Medical History: - - Hypertension and fibromyalgia Surgical History: hysterectomy, - - She had an expiratory laparotomy with bowel resection 20 years ago and in 2001 she had and another exploratory laparotomy with small bowel resection for small bowel obstruction. Lives: Spouse/ Significant Other Smoking Status: Current every day smoker Alcohol: None Drugs: None - Family History Maternal Family History: Family History (Last Updated 07/25/17 @ 08:26 by Keya Ndiaye) Mother Arthritis Brother Cerebral palsy Other Cancer Heart disease Family History: Reports: Hypertension Review of Systems General: Denies: Chills, Fever, Sweats Eyes: Denies: Visual changes - bilaterally, Diplopia ENT: Denies: Rhinorrhea, Sore throat Cardiovascular: Reports: Chest pain. Denies: Palpitations Respiratory: Denies: Dyspnea, Cough, Dyspnea on exertion Gastrointestinal: Denies: Abdominal pain, Nausea, Vomiting, Diarrhea, Melena, Hematochezia Genitourinary: Denies: Dysuria, Hematuria, Frequency Musculoskeletal: Denies: Back pain, Extremity Pain Skin: Denies: Rash, Wounds Neurological: Reports: Parasthesia. Denies: Headache, Weakness, Numbness Physical Exam Vital Signs/Narrative: Vital Signs Temp Pulse Resp BP Pulse Ox 12/20/19 03:02 98 F 68 18 130/104 H 100 Inital Vital Signs reviewed: Yes General: Well nourished, Well developed, No Acute Distress Head: Normocephalic, Atraumatic Eyes: Perrl, EOMI ENT: Moist mucous membranes, No rhinorrhea Neck: Supple, Nontender Cardiovascular: Regular rate, Regular rhythm, No murmurs Respiratory: No distress, CTA bilaterally, Chest nontender Abdomen: Soft, Nontender, Nondistended, Normal bowel sounds Back: Nontender, Normal Inspection Extremities: Nontender, No edema Skin: Normal color, No rash Neurological: Alert, Oriented x3, Cranial nerves II-XII grossly intact, Normal Strength, Normal Sensation Psychological: Normal affect, Normal Mood Diagnostic/Tx/Re-eval Clinical Impression(s) from Imaging Studies Chest X-Ray 12/20/19 03:17 IMPRESSION: No acute cardiopulmonary disease identified. Electronically Signed: Sukhjinder Lazo, at 4:18 EDT Tel , Service support , Laboratory Data 12/20/19 12/20/19 03:25 03:25 WBC 7.4 RBC 4.23 Hgb 13.8 Hct 40.6 MCV 96.0 MCH 32.6 H MCHC 34.0 RDW Std Deviation 43.9 RDW Coeff of Janet 12.8 Plt Count 211 MPV 9.7 Immature Gran % (Auto) 0.500 Neut % (Auto) 54.2 Lymph % (Auto) 33.4 [place] % (Auto) 9.2 Eos % (Auto) 2.2 Baso % (Auto) 0.5 Absolute Neuts (auto) 4.0 Absolute Lymphs (auto) 2.46 Nucleated RBC % 0 Sodium 140 Potassium 3.3 L Chloride 108 H Carbon Dioxide 27.0 Anion Gap 5 BUN 12 Creatinine 0.75 Estim Creat Clear Calc 81.80 Est GFR (MDRD) Af Amer 107 Est GFR (MDRD) Non-Af 88 BUN/Creatinine Ratio 16.0 Glucose 93 Calcium 8.3 L Magnesium 2.1 Troponin I < 0.015 - Rhythm Strip Rhythm Strip: Sinus Rhythm Rate: 60 Ectopy: None - EKG Initial EKG Interpretation: Sinus Rhythm - 0331 Sinus rhythm at 60 bpm. MT interval of 150 ms. QTC of 402 ms. No evidence of ST elevation or depression at this time. Change from previous which was done on April 19, 2019 given new T wave inversion in lead I. Prior: Changed Follow-up EKG Interpretation: Sinus Bradycardia - 0619 Sinus bradycardia at 56 bpm. MT interval of 150s milliseconds. QTC of 443 ms. No significant change from previous EKG. Prior: Unchanged - Medical Decision Making Patient appears well nontoxic. Vital signs within normal limits. Atypical chest pain. EKG is no evidence of acute ischemia. Initial troponin negative. Other lab work within normal limits other than hypokalemia which was replaced PO. Patient monitored in the department for approximately 4 hours. Repeat EKG nonischemic. Second troponin also negative. Imaging negative. Unclear the cause of the patient's chest pain or her tingling. Will be advised to follow-up with primary care provider within the next 48 hours. Given the patients slightly different EKG she will also be referred to cardiology. Asked to return for new or worsening symptoms. Patient agreeable and discharged home in stable condition. ED Disposition - Plan for ED Patient: Disposition: Home or Assisted Living Diagnosis: Atypical chest pain, Hypokalemia, Complaint of paresthesia Instructions: ED Chest Pain Atypical Unkn Cause Referrals: Andrae Larson MD [Primary Care Provider] - Sammy Kincaid MD [STAFF PHYSICIAN] -
[2019-12-20 03:33] LABS: Absolute Lymphocyte Count 2.46 X10^3/uL (0.83-4.51); Basophil# 0.04 X10^3/uL; Basophil% 0.5 % (0-1); Eosinophil# 0.16 X10^3/uL; Eosinophils% 2.2 % (0-5); Hematocrit 40.6 % (37-47); Hemoglobin 13.8 g/dL (12.0-15.0); Lymphocyte # 2.46 X10^3/ul (4.0); Lymphocyte % 33.4 % (19-41); Mean Corpuscular Hgb 32.6 pg (27.0-32.0); Mean Platelet Vol. 9.7 fl (6.2-12.0); Monocyte# 0.68 X10^3/uL; Monocyte% 9.2 % (0-10); NRBC Flagged by Analyzer 0 % (0-5); Neutrophil # 3.98 X10^3/uL (2.7-7.7); Neutrophil % 54.2 % (47-70); Platelet Count 211 K/mm3 (150-450); RBC Distribution Width CV 12.8 % (11.6-14.6); RBC Distribution Width SD 43.9 fl (35.1-43.9); Red Blood Count 4.23 M/mm3 (4.2-5.4); White Blood Count 7.4 K/mm3 (4.4-11.0)
[2019-12-20 03:51] LABS: Anion Gap 5 (5-15); BUN 12 mg/dL (7-18); Calcium,Total 8.3 mg/dL (8.5-10.1); Chloride 108 mmol/L (98-107); Creatinine, Serum 0.75 mg/dL (0.55-1.02); EST Glomerular Filtration Rate 88 mL/min (>60); Est Glom Filt Rate - Afr Amer 107 mL/min (>60); Glucose 93 mg/dL (74-106); Magnesium 2.1 mg/dL (1.6-2.6); Potassium 3.3 mmol/L (3.5-5.1); Sodium Level 140 mmol/L (136-145)
[2019-12-20] MEDS: Mag Hydrox/Al Hydrox/Simeth 30 ML UDC PO (04:20)
[2019-12-20 05:27] VITALS: BP 123/87; PULSE 62; RESP 13; O2SAT 96
[2019-12-20 06:17] VITALS: BP 125/81; PULSE 53; RESP 17; O2SAT 96
--- NOTE | 2019-12-20 06:35 | EKG12_ITS ---
Test Reason : REPEAT EKG Blood Pressure : / mmHG Vent. Rate : 056 BPM Atrial Rate : 056 BPM P-R Int : 150 ms QRS Dur : 088 ms QT Int : 460 ms P-R-T Axes : 038 037 059 degrees QTc Int : 443 ms Sinus bradycardia Otherwise normal ECG Confirmed by ADIA SANFORD, EMILY ([id number]), editor department FANNIE ALMONTE ([id number]) on 12/23/2019 8:18:21 AM Referred By: CL Confirmed By:EMILY CHEEK MD
== END 2019-12-20 06:47 | disposition home or self-care (01) ==
PROVIDERS: Emergency Provider Emergency Medicine; PCP Family Medicine
DX: R07.89 Other chest pain (principal); E87.6 Hypokalemia; R20.2 Paresthesia of skin; R94.31 Abnormal electrocardiogram [ECG] [EKG]; F17.200 Nicotine dependence, unspecified, uncomplicated; I10 Essential (primary) hypertension; M79.7 Fibromyalgia; Z82.49 Family history of ischemic heart disease and other diseases of the circulatory system; Z88.0 Allergy status to penicillin; Z88.1 Allergy status to other antibiotic agents; Z88.2 Allergy status to sulfonamides; Z88.8 Allergy status to other drugs, medicaments and biological substances; Z90.49 Acquired absence of other specified parts of digestive tract; Z90.710 Acquired absence of both cervix and uterus
CPT/HCPCS: 36415; 71045; 80048; 83735; 84484; 85025; 93005; 99284; A4216

== ENCOUNTER → 2020-03-26 11:28 | Outpatient (CLI) | payer MEDICARE, MEDICAID, SELFPAY ==
--- NOTE | 2020-03-26 11:30 | RAD_ITS ---
STUDY: X-RAY - LEFT WRIST REASON FOR EXAM: Female, 45 years old. left wrist pain x 3 weeks, pain under thumb and around radial side of wrist, patient is unsure of specific injury, but states she does do a lot of lifting TECHNIQUE: 3 view(s) of the wrist were obtained. COMPARISON: None. FINDINGS: Normal visualized distal radius and ulna. Normal radiocarpal articulation. Normal distal radioulnar articulation. Normal carpal bones. Normal carpal articulations. Normal carpometacarpal articulation of the thumb. Normal second through fifth carpometacarpal articulations. Normal visualized metacarpal bones. The soft tissue structures are unremarkable. RAD/Wrist min 3 Views IMPRESSION: Normal x-ray examination of the wrist. Electronically Signed: Garfield Molina MD at 5:00 EDT , Service support ,
== END ==
PROVIDERS: PCP Family Medicine; Referring Provider Family Medicine; Visit Provider Family Medicine
DX: M25.532 Pain in left wrist (principal)
CPT/HCPCS: 73110

== ENCOUNTER → 2020-07-30 14:34 | Outpatient (CLI) | payer MEDICARE, MEDICAID, SELFPAY | LOC: MFPLAB 14:35 → LABSPEC 14:36 | PROVIDERS: PCP Family Medicine; Referring Provider Family Medicine; Visit Provider Family Medicine | DX: Z20.822 Contact with and (suspected) exposure to COVID-19 (principal) | CPT/HCPCS: 87635; U0005; U0003 ==

== ENCOUNTER → 2020-09-09 11:40 | Outpatient (CLI) | payer MEDICARE, MEDICAID, SELFPAY ==
[2020-09-19 08:58] LABS: VITAMIN B6 46.6 ug/L (2.0-32.8)
== END ==
PROVIDERS: PCP Family Medicine; Referring Provider Family Medicine; Visit Provider Family Medicine
DX: L60.3 Nail dystrophy (principal)
CPT/HCPCS: 36415; 84207

== ENCOUNTER → 2020-09-17 11:27 | Outpatient (CLI) | payer MEDICARE, MEDICAID, SELFPAY ==
[2020-09-17 14:52] LABS: Erythrocyte Sedimentation Rate 10 mm/hr (0-30)
[2020-09-17 15:12] LABS: Vitamin B12 466 pg/mL (211-911)
[2020-09-17 15:19] LABS: Anion Gap 5 (5-15); BUN 11 mg/dL (7-18); BUN/Creat Ratio 12.5 RATIO (10-20); Chloride 108 mmol/L (98-107); Creatinine, Serum 0.88 mg/dL (0.55-1.02); EST Glomerular Filtration Rate 74 mL/min (>60); Est Glom Filt Rate - Afr Amer 89 mL/min (>60); Glucose 102 mg/dL (74-106); Potassium 3.5 mmol/L (3.5-5.1); Sodium Level 140 mmol/L (136-145); Thyroid Stim Hormone (TSH) 3.48 uIU/mL (0.358-3.74)
[2020-09-26 04:07] LABS: VITAMIN B6 18.8 ug/L (2.0-32.8)
[2020-09-26 19:49] LABS: Zinc, Plasma or Serum 68 ug/dL (44-115)
== END ==
PROVIDERS: PCP Family Medicine; Referring Provider Family Medicine; Visit Provider Family Medicine
DX: L60.3 Nail dystrophy (principal); M79.7 Fibromyalgia
CPT/HCPCS: 36415; 80048; 82306; 82607; 84207; 84443; 84630; 85652

== ENCOUNTER 2020-09-26 12:20 | Emergency (ER) | payer MEDICARE, MEDICAID, SELFPAY ==
[2020-09-26 12:21] VITALS: BP 147/72; PULSE 63; RESP 17; TEMP 36.1; O2SAT 99; BMI 28.8
--- NOTE | 2020-09-26 12:37 | ED.VIS.GEN ---
History of Present Illness Chief Complaint: Fall Narrative: Patient presents after mechanical fall trying to take out her trash. She fell on both her knees injuring them however she is able to ambulate. She also hit her head but she has no headache she has no loss of consciousness no neck pain. No nausea vomiting or vision changes or neurological symptoms. No other injuries. Social: Noncontributory Medications: Reviewed Past medical history: Reviewed Review of systems General: Patient has no head injury or loss of consciousness HEENT: No facial injury Neck: No neck pain Cardiovascular: Patient denies any chest pain or palpitations Chest wall: No chest wall contusions Respiratory: There is no shortness of breath GI: There is no nausea vomiting diarrhea or abdominal pain, no abdominal wall contusions Skin: Bilateral knee abrasions Neurological: Patient has no memory loss, confusion, or any focal weakness Psychiatric: No recent behavioral changes Back: No back pain, no problems with ambulation Musculoskeletal: Knee pain All other systems are reviewed and normal Physical exam Vitals reviewed General: Does not appear in significant distress, no obvious injuries HEENT: No facial injury Head: No head injury Eyes: Extraocular movements intact Neck: No C-spine tenderness with full range of motion Heart: Regular rate normal pulses Chest wall: No chest wall pain Lungs clear lungs bilaterally with normal inspiration and expiration without tachypnea GI: Abdomen is soft and nontender there is no mass no guarding no abdominal wall contusion : Stable pelvis Musculoskeletal: Small abrasions over both knees however both knees have full range of motion without effusion. No laxity on anterior posterior medial or lateral stressors, normal extensor mechanism bilaterally. Skin: Bilateral knee abrasions Neurological: Patient is alert and oriented with no focal deficits Past Medical History - Allergies and Home Meds Allergies/Adverse Reactions: Allergies amoxicillin Allergy (Mild, Verified 09/26/20 12:21) unknown sulfamethoxazole [From Bactrim] Allergy (Mild, Verified 09/26/20 12:21) unknown trimethoprim [From Bactrim] Allergy (Mild, Verified 09/26/20 12:21) unknown aripiprazole [From Abilify] Allergy (Verified 09/26/20 12:21) Unknown citalopram hydrobromide [From Celexa] Allergy (Verified 09/26/20 12:21) Unknown codeine Allergy (Verified 09/26/20 12:21) Other BACK PAIN doxepin Allergy (Verified 09/26/20 12:21) Pain in joints duloxetine HCl [From Cymbalta] Allergy (Verified 09/26/20 12:21) Shortness of breath gabapentin [From Neurontin] Allergy (Verified 09/26/20 12:21) Other lamotrigine Allergy (Verified 09/26/20 12:21) Itching Penicillins Allergy (Verified 09/26/20 12:21) Shortness of breath pregabalin [From Lyrica] Allergy (Verified 09/26/20 12:21) Rash venlafaxine HCl [From Effexor] Allergy (Verified 09/26/20 12:21) Other LETHARGY Primary Care Physician: Andrae Larson MD [Primary Care Provider] - Surgical History: hysterectomy, - - She had an expiratory laparotomy with bowel resection 20 years ago and in 2001 she had and another exploratory laparotomy with small bowel resection for small bowel obstruction. Smoking Status: Current every day smoker - Family History Maternal Family History: Family History (Last Updated 07/25/17 @ 08:26 by Keya Ndiaye) Mother Arthritis Brother Cerebral palsy Other Cancer Heart disease Family History: Reports: Hypertension Physical Exam Vital Signs/Narrative: Vital Signs Temp Pulse Resp BP Pulse Ox 09/26/20 12:21 97.0 F L 63 17 147/72 H 99 Diagnostic/Tx/Re-eval Bilateral knee x-ray interpreted by emergency physician does not show any fracture, normal alignment I do not see any DJD. - Medical Decision Making Patient has a normal x-rays she appears well I will discharge with reassurance. ED Disposition - Plan for ED Patient: Disposition: Home or Assisted Living Diagnosis: Knee contusion Instructions: ED Mechanical Fall, ED Contusion, Lower Extremity Referrals: Andrae Larson MD [Primary Care Provider] -
--- NOTE | 2020-09-26 12:40 | RAD_ITS ---
STUDY: X-RAY - LEFT KNEE REASON FOR EXAM: Female, 45 years old. FALL, PAIN TECHNIQUE: 4 view(s) of the knee. COMPARISON: None. FINDINGS: Normal visualized distal femur. Normal visualized proximal tibia and fibula. Normal proximal tibiofibular articulation. There is no demonstrated fracture. Normal medial femorotibial compartment. Normal lateral femorotibial compartment. There is mild degenerative arthrosis of the patellofemoral articulation. The soft tissue structures are unremarkable. RAD/Knee 4 or More Views IMPRESSION: Degenerative arthrosis. Electronically Signed: Michele Reyes MD at 13:38 EDT , Service support ,
--- NOTE | 2020-09-26 12:40 | RAD_ITS ---
INDICATION: FALL, PAIN EXAMINATION/TECHNIQUE: X-RAY - RIGHT XR Knee Complete 4 Views or More COMPARISON: None. FINDINGS: No acute fracture or malalignment. No significant degenerative changes are seen. No joint effusion. The soft tissues are unremarkable. RAD/Knee 4 or More Views IMPRESSION: No acute radiographic abnormalities. Electronically Signed: Miguel Pond MD at 13:12 EDT Tel , Service support ,
== END 2020-09-26 13:37 | disposition home or self-care (01) ==
PROVIDERS: Emergency Provider Emergency Medicine; PCP Family Medicine
DX: S80.02XA Contusion of left knee, initial encounter (principal); S80.01XA Contusion of right knee, initial encounter; W19.XXXA Unspecified fall, initial encounter; Y93.9 Activity, unspecified; Y92.89 Other specified places as the place of occurrence of the external cause; Y99.8 Other external cause status
CPT/HCPCS: 73564; 99282

== ENCOUNTER → 2020-12-09 11:16 | Outpatient (CLI) | payer MEDICARE, MEDICAID, SELFPAY | PROVIDERS: PCP Family Medicine; Visit Provider Family Medicine | DX: N39.0 Urinary tract infection, site not specified (principal) | CPT/HCPCS: 87086; 87088 ==

== ENCOUNTER → 2021-01-19 11:46 | Outpatient (CLI) | payer MEDICARE, MEDICAID, SELFPAY ==
--- NOTE | 2021-01-19 11:50 | RAD_ITS ---
STUDY: X-RAY - LUMBAR SPINE REASON FOR EXAM: Female, 46 years old. Pain. Evaluate for disc degeneration. TECHNIQUE: 6 view(s) of the lumbar spine including lateral flexion and extension views were obtained. COMPARISON: 01/03/2017 FINDINGS: Normal lumbar lordosis. There is no substantial scoliosis. 8 mm of anterolisthesis of L4 on L5, slightly more accentuated than on the prior study. Normal flexion and extension with no abnormal motion. Normal vertebral bodies and endplates. Diffuse facet sclerosis. Mild intervertebral disc space narrowing at L3-4, L4-5 and L5-S1, slightly progressed since the prior study. The soft tissue structures are unremarkable. RAD/L/S Spine Bending Flex/Ext IMPRESSION: Grade 1 spondylolisthesis of L4 on L5, relatively unchanged. Normal flexion and extension with no abnormal motion. Mild diffuse lumbar spondylosis. Electronically Signed: Turner Patrick MD at 12:49 EDT , Service support ,
== END ==
PROVIDERS: PCP Family Medicine; Referring Provider Anesthesiology Pain Medicine; Visit Provider Anesthesiology Pain Medicine
DX: M51.37 Other intervertebral disc degeneration, lumbosacral region (principal)
CPT/HCPCS: 72120

== ENCOUNTER → 2021-04-22 11:29 | Outpatient (CLI) | payer MEDICARE, MEDICAID, SELFPAY ==
--- NOTE | 2021-04-22 11:34 | RAD_ITS ---
STUDY: X-RAY - LEFT HAND REASON FOR EXAM: Female, 46 years old. THUMB PAIN TECHNIQUE: 3 view(s) of the hand. COMPARISON: None. FINDINGS: Normal radiocarpal articulation. Normal distal radioulnar joint. Normal visualized carpal bones. Normal carpal articulations Normal carpometacarpal articulation of the thumb. Normal second through fifth carpometacarpal joints. Normal metacarpi. Normal metacarpophalangeal joint of the thumb. Normal interphalangeal joint of the thumb. Normal proximal and distal phalanges of the thumb. Normal metacarpophalangeal joints of the second through fifth fingers. Normal proximal and distal interphalangeal joints of the second through fifth fingers. Normal phalanges of the second through fifth fingers. The soft tissue structures are unremarkable. RAD/Hand Min 3 Views IMPRESSION: Within normal limits x-ray examination of the hand. Electronically Signed: Bernadette Miguel MD at 13:58 EST Tel , Service support ,
--- NOTE | 2021-04-22 11:34 | RAD_ITS ---
STUDY: X-RAY - RIGHT SHOULDER REASON FOR EXAM: Female, 46 years old. PAIN TECHNIQUE: 3 back 4 view(s) of the shoulder. COMPARISON: None. FINDINGS: Normal glenohumeral articulation. There are mild degenerative changes of the acromioclavicular joint. Normal acromion. Normal humeral head and visualized proximal humerus. The soft tissue structures are unremarkable. Normal visualized pulmonary apex. RAD/Shoulder min 2 Views IMPRESSION: Degenerative changes of the acromioclavicular joint. Electronically Signed: Bernadette Miguel MD at 12:47 EST Tel , Service support ,
--- NOTE | 2021-04-22 11:34 | RAD_ITS ---
STUDY: X-RAY - LEFT SHOULDER REASON FOR EXAM: Female, 46 years old. PAIN TECHNIQUE: 4 view(s) of the shoulder. COMPARISON: None. FINDINGS: Normal glenohumeral articulation. Normal acromioclavicular joint. Normal acromion. Normal humeral head and visualized proximal humerus. The soft tissue structures are unremarkable. Normal visualized pulmonary apex. RAD/Shoulder min 2 Views IMPRESSION: Within normal limits x-ray examination of the shoulder. Electronically Signed: Bernadette Miguel MD at 12:51 EST Tel , Service support ,
--- NOTE | 2021-04-22 11:34 | RAD_ITS ---
STUDY: X-RAY - CERVICAL SPINE REASON FOR EXAM: Female, 46 years old. SHOULDER PAIN TECHNIQUE: 7 view(s) of the cervical spine were obtained. COMPARISON: None FINDINGS: Normal anterior atlantoaxial articulation. Normal odontoid process. Normal cervical lordosis. Normal vertebral bodies and endplates. Normal disc space heights. Normal visualized intervertebral neuroforamina. The soft tissue structures are unremarkable. RAD/Cerv Spine Obl/Flex/Ext Comp IMPRESSION: Within normal limits x-ray examination of the visualized cervical spine. Electronically Signed: Bernadette Miguel MD at 12:45 EST Tel , Service support ,
== END ==
LOC: MTLAB 11:32 → MTRAD 11:43
PROVIDERS: PCP Family Medicine; Referring Provider Family Medicine; Visit Provider Family Medicine
DX: M25.511 Pain in right shoulder (principal); M25.512 Pain in left shoulder; M79.645 Pain in left finger(s)
CPT/HCPCS: 72052; 73030; 73130

== ENCOUNTER → 2021-05-10 18:09 | Outpatient (CLI) | payer MEDICARE, MEDICAID, SELFPAY | PROVIDERS: PCP Family Medicine; Visit Provider Family Medicine | DX: Z20.822 Contact with and (suspected) exposure to COVID-19 (principal) | CPT/HCPCS: 87635; U0005; U0003 ==

== ENCOUNTER → 2021-05-18 16:56 | Outpatient (CLI) | payer MEDICARE, MEDICAID, SELFPAY ==
[2021-05-18 20:59] LABS: Probe Check PASS; Specimen Processing Control PASS
== END ==
PROVIDERS: PCP Family Medicine; Referring Provider Family Medicine; Visit Provider Family Medicine
DX: U07.1 COVID-19 (principal)
CPT/HCPCS: 87633; 87635; U0005; U0003

== ENCOUNTER 2021-05-21 17:24 | Outpatient (CLI) | payer MEDICARE, MEDICAID, SELFPAY ==
[2021-05-21] MEDS: 0.9% Saline Lock 10 ML Syringe IV (17:40)
[2021-05-21 17:45] VITALS: BP 115/81; PULSE 64; RESP 16; TEMP 37.2; O2SAT 97; BMI 27.4
[2021-05-21 18:23] VITALS: BP 110/79; PULSE 57; RESP 16; TEMP 37; O2SAT 99
[2021-05-21 19:14] VITALS: BP 120/78; PULSE 52; RESP 16; TEMP 36.9; O2SAT 99
== END 2021-05-21 19:22 | disposition home or self-care (01) ==
LOC: MS3OUT 17:24 → MS3 17:25
PROVIDERS: PCP Family Medicine; Referring Provider Nurse Practitioner Acute Care; Visit Provider Nurse Practitioner Acute Care
DX: Z23 Encounter for immunization (principal); U07.1 COVID-19
CPT/HCPCS: J7050; M0245; Q0245; A4216

== ENCOUNTER → 2021-06-07 09:00 | Outpatient (CLI) | payer MEDICARE, MEDICAID, SELFPAY ==
--- NOTE | 2021-06-07 09:04 | BI_ITS ---
MAMMOGRAPHY - BILATERAL SCREENING 3-D TOMOSYNTHESIS REASON FOR EXAM: Female, 46 years old. SCREENING PERTINENT HISTORY: No significant family history. TECHNIQUE: 2-D mammograms and 3-D Tomosynthesis of the breast (s) were performed. CAD was performed. COMPARISON: None. FINDINGS: The breast composition is composed of scattered fibroglandular density. Scattered benign calcifications are seen. No dense spiculated masses or suspicious microcalcifications are identified. No architectural distortion is identified. There is no skin thickening or retraction. There has been no significant change since the prior study. BI/SCRN MAMM (CAD)W/SHYAM BILAT IMPRESSION: No mammographic signs of malignancy. Routine yearly mammograms recommended. ASSESSMENT CATEGORY: BIRADS Category 1: Negative. A letter regarding these results will be sent to the patient by the facility within 30 days. FOLLOW UP RECOMMENDATION: Yearly follow up mammogram recommended. (A) Approximately 10% of breast cancers are not detected by mammography. A normal mammogram should not delay biopsy of a clinically suspicious abnormality. Electronically Signed: Ga Orourke MD at 9:49 EST Tel , Service support ,
== END ==
PROVIDERS: PCP Family Medicine; Visit Provider Obstetrics & Gynecology
DX: Z12.31 Encounter for screening mammogram for malignant neoplasm of breast (principal)
CPT/HCPCS: 77063; 77067

== ENCOUNTER 2021-09-17 10:51 | Emergency (ER) | payer MEDICARE, MEDICAID, SELFPAY ==
[2021-09-17 10:53] VITALS: BP 150/100; PULSE 61; RESP 16; TEMP 36.4; O2SAT 99; BMI 28.3
--- NOTE | 2021-09-17 11:07 | CT_ITS ---
STUDY: CT BRAIN WITHOUT CONTRAST REASON FOR EXAM: Female, 46 years old. Head injury RADIATION DOSAGE (If Supplied By Facility): CTDIvol = ( 44.99 ) mGy, DLP = ( 796.11 ) mGycm TECHNIQUE: Transaxial CT imaging of the brain was performed without administration of intravenous contrast material. Individualized dose optimization techniques were used for this CT. COMPARISON: Comparison is made with prior study 02/12/2017. FINDINGS: Normal soft tissue structures. Normal calvarium. Normal size ventricles and extra-axial spaces for the patient''s age. Normal white matter tracts of the cerebral hemispheres. Normal basal ganglia and thalami. Normal brainstem. Normal cerebellum. There is no intracranial hemorrhage. There are no findings of an acute ischemic infarction. Normal visualized paranasal sinuses. CT/Brain/Head without Contrast IMPRESSION: Normal unenhanced CT scan of the brain. Electronically Signed: Wolfgang Lunsford MD at 11:59 EDT ,
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
[2021-09-17] MEDS: Acetaminophen 500 MG Tablet 1000 MG PO (11:54)
== END 2021-09-17 12:32 | disposition home or self-care (01) ==
PROVIDERS: Emergency Provider Emergency Medicine; PCP Family Medicine; Visit Provider Emergency Medicine
DX: S06.0X0A Concussion without loss of consciousness, initial encounter (principal); S00.03XA Contusion of scalp, initial encounter; Z87.891 Personal history of nicotine dependence; W11.XXXA Fall on and from ladder, initial encounter; F41.9 Anxiety disorder, unspecified; F32.A Depression, unspecified; K21.9 Gastro-esophageal reflux disease without esophagitis
CPT/HCPCS: 70450; 99282

== ENCOUNTER 2021-09-26 18:51 | Emergency (ER) | payer MEDICARE, MEDICAID, SELFPAY ==
[2021-09-26 18:52] VITALS: BP 154/82; PULSE 71; RESP 17; TEMP 36.2; O2SAT 96; BMI 29.2
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
[2021-09-26] MEDS: oxyCODONE 5 MG Tablet PO (19:20)
[2021-09-26] MEDS: Ondansetron ODT 4 MG Tablet PO (19:20)
[2021-09-26 19:55] VITALS: PULSE 86; RESP 16; O2SAT 98
== END 2021-09-26 19:56 | disposition home or self-care (01) ==
PROVIDERS: Emergency Provider Emergency Medicine; PCP Family Medicine; Visit Provider Emergency Medicine
DX: S09.90XD Unspecified injury of head, subsequent encounter (principal); R11.0 Nausea; Z87.891 Personal history of nicotine dependence; H92.09 Otalgia, unspecified ear; F41.9 Anxiety disorder, unspecified; F32.A Depression, unspecified; K21.9 Gastro-esophageal reflux disease without esophagitis; M79.7 Fibromyalgia
CPT/HCPCS: 99283

== ENCOUNTER 2023-09-11 11:57 | Outpatient (CLI) | payer MEDICARE, SELFPAY ==
[2023-09-11 15:39] LABS: Absolute Lymphocyte Count 2.13 X10^3/uL (0.83-4.51); Absolute Neutrophil Count 3.8 X10^3/uL (2.0-7.7); Basophil# 0.05 X10^3/uL; Basophil% 0.7 % (0-1); Eosinophil# 0.07 X10^3/uL; Hematocrit 40.6 % (37-47); Hemoglobin 13.7 g/dL (12.0-15.0); Lymphocyte # 2.13 X10^3/ul (0.83-4.51); Lymphocyte % 31.9 % (19-41); Mean Corp Hgb Conc 33.7 g/dL (32-36); Mean Corpuscular Hgb 31.9 pg (27.0-32.0); Mean Corpuscular Volume 94.6 fL (81-99); Mean Platelet Vol. 10.4 fl (6.2-12.0); Monocyte# 0.59 X10^3/uL; Monocyte% 8.8 % (0-10); NRBC Flagged by Analyzer 0 % (0-5); POSITIVE MORPHOLOGY YES; Platelet Count 261 K/mm3 (150-450); RBC Distribution Width CV 13.2 % (11.6-14.6); Red Blood Count 4.29 M/mm3 (4.2-5.4); White Blood Count 6.7 K/mm3 (4.4-11.0)
[2023-09-11 16:03] LABS: Differential Indicated SCAN CRITERIA MET
[2023-09-11 16:14] LABS: ALB/GLOB Ratio 0.9 RATIO (0.9-2.4); AST(SGOT) 25 U/L (15-37); Alanine Aminotransfer ALT/SGPT 33 U/L (13-56); Albumin, Serum 3.5 g/dL (3.2-5.0); Alkaline Phosphatase 114 U/L (45-117); Anion Gap 7 (5-15); BUN 16 mg/dL (7-18); BUN/Creat Ratio 19.5 RATIO (10-20); CRP 4.61 mg/L (0.0-3.0); Calcium,Total 8.9 mg/dL (8.5-10.1); Chloride 110 mmol/L (98-107); Creatinine, Serum 0.82 mg/dL (0.55-1.02); EST Glomerular Filtration Rate 79 mL/min (>60); Est Glom Filt Rate - Afr Amer 95 mL/min (>60); Globulin 3.9 g/dL (2.2-4.2); Glucose 101 mg/dL (74-106); Protein, Total 7.4 g/dL (6.4-8.2); Sodium Level 142 mmol/L (136-145); Thyroid Stim Hormone (TSH) 1.54 uIU/mL (0.358-3.74); Uric Acid 4.3 mg/dL (2.6-6.0)
[2023-09-11 16:18] LABS: Differential Comment SCANNED
[2023-09-11 16:33] LABS: Hepatitis C Antibody Non-Reactive (Nonreactive); Vitamin D,25 Hydroxy 41.7 ng/mL
[2023-09-12 19:45] LABS: Erythrocyte Sedimentation Rate 20 mm/hr (0-30)
[2023-09-13 11:09] LABS: ANTINUCLEAR ANTIBODIES DIRECT Negative (Negative); SJOGREN'S Anti-SS-A test < 0.2 AI (0.0-0.9); SJOGREN'S Anti-SS-B test < 0.2 AI (0.0-0.9)
[2023-09-13 15:09] LABS: CCP IgG Antibodies 1 units (0-19)
== END 2023-09-11 23:59 | disposition home or self-care (01) ==
LOC: MFPLAB 11:57
PROVIDERS: PCP Family Medicine; Visit Provider Family Medicine
DX: M25.50 Pain in unspecified joint (principal)
CPT/HCPCS: 36415; 80053; 82306; 84443; 84550; 85025; 85652; 86038; 86140; 86200; 86235; 86431; 86803

== ENCOUNTER → 2023-10-05 | Outpatient (CLI) | payer MEDICARE, SELFPAY ==
--- NOTE | 2023-10-05 09:43 | RAD_ITS ---
STUDY: X-RAY - CERVICAL SPINE REASON FOR EXAM: Female, 48 years old. NECK PAIN TECHNIQUE: 7 view(s) of the cervical spine were obtained. COMPARISON: None FINDINGS: Normal anterior atlantoaxial articulation. Normal odontoid process. Normal cervical lordosis. Normal vertebral bodies and endplates. Normal disc space heights. Normal visualized intervertebral neuroforamina. The soft tissue structures are unremarkable. RAD/Cerv Spine Obl/Flex/Ext Comp IMPRESSION: Normal x-ray examination of the visualized cervical spine. Electronically Signed: Otis Bueno DO at 20:39 EDT Reading Location ID and State: [facility] / [place] Tel [phone], Service support ,
--- NOTE | 2023-10-05 09:43 | RAD_ITS ---
INDICATION: PAIN IN SHOULDER EXAMINATION/TECHNIQUE: X-RAY - RIGHT XR Shoulder 4 VIEWS COMPARISON: FINDINGS: SOFT TISSUES: No soft tissue swelling or gas. No radiopaque foreign body. BONES/JOINTS: No acute fracture or subluxation.. Normal alignment. Preservation of the joint space.. No sclerotic or destructive changes observed. RAD/Shoulder min 2 Views IMPRESSION: No acute bony injury. Electronically Signed: Otis Bueno DO at 19:37 EDT ,
== END | disposition home or self-care (01) ==
PROVIDERS: PCP Family Medicine; Referring Provider Family Medicine; Visit Provider Family Medicine
DX: I10 Essential (primary) hypertension (principal); M25.519 Pain in unspecified shoulder; M54.2 Cervicalgia
CPT/HCPCS: 72052; 73030

== ENCOUNTER → 2024-01-29 | Outpatient (CLI) | payer MEDICARE, SELFPAY ==
--- NOTE | 2024-01-29 11:48 | BI_ITS ---
MAMMOGRAPHY - BILATERAL SCREENING REASON FOR EXAM: Female, 49 years old. Routine annual screening examination. PERTINENT HISTORY: Non-contributory. TECHNIQUE: Digital bilateral breast shyam (3D mammographic acquisition) in the CC and MLO projections. 2-D mediolateral oblique (MLO) and craniocaudad (CC) views of both breasts were obtained. CAD: Full Field Digital Mammography with Computer Added Detection was performed. COMPARISON: Comparison is made with prior study dated June 07, 2021. FINDINGS: Breast Composition: There are scattered areas of fibroglandular density. There are no dominant masses or suspicious calcifications. No other significant abnormalities are identified. There has been no significant change since the prior study. BI/SCRN MAMM (CAD)W/SHYAM BILAT IMPRESSION: Stable bilateral screening mammogram. Yearly follow-up mammogram recommended. (A) ASSESSMENT CATEGORY: BIRADS Category 1: Negative. A letter regarding these results will be sent to the patient by the facility within 30 days. Approximately 10% of breast cancers are not detected by mammography. A normal mammogram should not delay biopsy of a clinically suspicious abnormality. [id number] Electronically Signed: Wolfgang Lunsford MD at 12:44 EDT ,
== END | disposition home or self-care (01) ==
LOC: OPBI 11:34
PROVIDERS: PCP Family Medicine; Referring Provider Family Medicine; Visit Provider Family Medicine
DX: Z12.31 Encounter for screening mammogram for malignant neoplasm of breast (principal)
CPT/HCPCS: 77063; 77067

== ENCOUNTER → 2024-04-04 | Outpatient (CLI) | payer MEDICARE, SELFPAY ==
--- NOTE | 2024-04-04 12:31 | RAD_ITS ---
INDICATION: Left lower quadrant pain EXAMINATION/TECHNIQUE: X-RAY - XR Abdomen W/ Decub and/or Erect Views COMPARISON: Prior study dated: 04/19/2019 FINDINGS: BOWEL GAS PATTERN: Nonspecific and nonobstructive gas pattern. No bowel or stomach distention. FREE AIR: None visualized. ORGANOMEGALY: Not seen. CALCIFICATIONS: Pelvic calcifications likely due to phleboliths. LOWER CHEST: No acute pathology. BONES AND SOFT TISSUES: Degenerative changes of the lower lumbar spine. RAD/[employer]d [employer] Decub and/or Erect IMPRESSION: Non-obstructive bowel gas pattern. Electronically Signed: Kashif Oliver MD at 14:50 EDT ,
--- OUTSIDE RECORDS SUMMARY | 2024-04-04 13:48 | XMS RPT_ITS | CCD ---
Author Organization [facility] ion Partnership [facility] Care Team Providers Care Medical Insurance Collector Name Role Phone Kuldip Murcia MD Unavailable ZendejasPina rubio N Unavailable Lilo Zendejasica N Unavailable Zendejas, Pina N Unavailable Deo Zendejasssica N Unavailable Kuldip Murcia MD Unavailable [phone] Anita Saunders Unavailable OTUGO, ONYEKACHI, DO Admitting Unavailable SHAUN, ONYEKASHIRLEY, DO Attending Unavailable SHAUN, ONYENORM, DO Primary Care Unavailable FRANKI SANFORD, DR HARDING Primary Care Physician FRANKI SANFORD, DR HARDING Attending Rayray DOAN MD, DR HARDING Primary Care Rayray esquivel Allergies Allergy Classification Reported Allergen(s) Allergy Type Date of Onset Reaction(s) Facility (15 sources) acetaminophen / codeine drug allergy 2 early labor [facility] Work Phone: (15 sources) amoxicillin drug allergy 2 Diarrhea [facility] Work Phone: (6 sources) ARIPiprazole drug allergy 7 [facility] Work Phone: (6 sources) citalopram drug allergy 7 [facility] Work Phone: (6 sources) doxepin drug allergy 7 [facility] Work Phone: (6 sources) gabapentin drug allergy 7 [facility] Work Phone: (15 sources) lamoTRIgine drug allergy 2 Rash [facility] Work Phone: (6 sources) penicillin g drug allergy 7 [facility] Work Phone: (15 sources) sulfamethoxazole / trimethoprim drug allergy 2 Hives [facility] Work Phone: (15 sources) venlafaxine drug allergy 2 [facility] Work Phone: (1 source) ARIPiprazole Drug Allergy [facility] (1 source) Citalopram Drug Allergy [facility] (1 source) Codeine Drug Allergy [facility] (1 source) Doxepin Drug Allergy [facility] (1 source) DULoxetine Drug Allergy [facility] (1 source) Labetalol Drug Allergy [facility] (1 source) lamoTRIgine Drug Allergy [facility] (1 source) lamoTRIgine Drug Allergy [facility] (1 source) penicillAMINE Drug Allergy [facility] (1 source) pregabalin Drug Allergy [facility] (1 source) Sulfamethoxazole / Trimethoprim Drug Allergy [facility] (1 source) venlafaxine Drug Allergy [facility] Medications Completed/Discontinued Medications Medication Drug Class(es) Dates Sig (Normalized) Sig (Original) 24 hr buPROPion hydrochloride 300 mg extended release oral tablet (15 sources) Aminoketone Start: 10-03-2014 WELLBUTRIN XL 300 MG [id number] as directed BUPROPION HCL [id number] Pina Zendejas busPIRone hydrochloride 15 mg oral tablet (20 sources) Start: 08-02-2011 BUSPIRONE HCL 15 MG TABS 1 tab bid BUSPIRONE HCL [id number] Anita Saunders cetirizine hydrochloride 10 mg oral tablet (20 sources) Histamine-1 Receptor Antagonist Start: 08-02-2011 ZYRTEC ALLERGY 10 MG TABS 1 daily CETIRIZINE HCL [id number] Anita Saunders cholecalciferol 1000 unt oral capsule (6 sources) Vitamin D Start: 01-11-2017 VITAMIN D3 1000 UNIT CAPS CHOLECALCIFEROL [id number] Kuldip Murcia MD clonazePAM 0.5 mg oral tablet (20 sources) Benzodiazepine Start: 08-02-2011 KLONOPIN 0.5 MG TABS 1/4 tab every am and 1/2 every pm CLONAZEPAM [id number] Anita Saunders lisinopril 10 mg oral tablet (6 sources) Angiotensin Converting Enzyme Inhibitor Start: 01-11-2017 take 1 tablet by mouth once daily LISINOPRIL 10 MG TABS One tablet by mouth daily LISINOPRIL [id number] Kuldip Murcia MD loperamide hydrochloride 2 mg oral tablet (5 sources) Opioid Agonist Start: 01-25-2017 IMODIUM A-D 2 MG TABS take 1-2 tab daily as needed for diarrhea LOPERAMIDE HCL [id number] Kuldip Murcia MD meloxicam 15 mg oral tablet (15 sources) Nonsteroidal Anti-inflammatory Drug Start: 10-21-2013 MELOXICAM 15 MG TABS as directed MELOXICAM [id number] Bran Zurita montelukast 10 mg oral tablet (15 sources) Leukotriene Receptor Antagonist Start: 08-02-2011 SINGULAIR 10 MG TABS 1 tab daily MONTELUKAST SODIUM [id number] Joelle Peters nabumetone 750 mg oral tablet (15 sources) Nonsteroidal Anti-inflammatory Drug Start: 02-28-2013 take 1 tablet by mouth twice daily NABUMETONE 750 MG TABS One tablet by mouth twice daily NABUMETONE [id number] Anita Saunders omeprazole 40 mg delayed release oral capsule (6 sources) Proton Pump Inhibitor Start: 01-11-2017 OMEPRAZOLE 40 MG CPDR OMEPRAZOLE [id number] Kuldip Murcia MD tiZANidine 2 mg oral tablet (15 sources) Central alpha-2 Adrenergic Agonist Start: 08-22-2014 take 1 tablet by mouth three times daily as needed TIZANIDINE HCL 2 MG TABS One tablet by mouth three times daily as needed TIZANIDINE HCL [id number] Pina Zendejas TRAZODONE & DIET MANAGE PROD (18 sources) Start: 08-02-2011 TRAZAMINE 50 MG MISC 1/2 tab hs TRAZODONE & DIET MANAGE PROD [id number] Anita Saunders Start: 08-02-2011 TRAZAMINE 50 M G MISC 1/2 tab hs TRAZODONE & DIET MANAGE PROD [id number] Joelle Peters TRAZODONE & DIET MANAGE PROD (12 sources) Start: 08-02-2011 TRAZAMINE 50 M G MISC 1/2 tab hs TRAZODONE & DIET MANAGE PROD [id number] Anita Babcockrosemarieallison Start: 08-02-2011 TRAZAMINE 50 M G MISC 1/2 tab hs TRAZODONE & DIET MANAGE PROD [id number] Joelle Peters CHOLECALCIFEROL TABS (15 sources) Start: 08-02-2011 VITAMIN D TABS 1 tab bid CHOLECALCIFEROL TABS [id number] Joelle Peters Problems Active Problems Problem Classification Problem Date Documented Date Episodic/Chronic Joint disorders and dislocations; trauma-related (15 sources) Chondromalacia of patella; Translations: [Chondromalacia patellae, unspecified knee] 02-13-2013 Chronic Osteoarthritis (15 sources) Osteoarthritis of knee; Translations: [Osteoarthritis of knee, unspecified] 09-23-2013 Chronic Other connective tissue disease (2 sources) Fibromyalgia; Translations: [Fibromyalgia] Onset: 09-12-2023 Episodic Other nutritional; endocrine; and metabolic disorders (6 sources) Body mass index 30+ - obesity; Translations: [Obesity, unspecified] Onset: 01-11-2017 01-11-2017 Chronic Unclassified (6 sources) Biliary acute pancreatitis without necrosis or infection; Translations: [Biliary acute pancreatitis without necrosis or infection] Onset: 01-11-2017 01-11-2017 Unclassified (2 sources) Other ascites; Translations: [Other ascites] Onset: 02-16-2017 02-16-2017 Past or Other Problems Problem Classification Problem Date Documented Da te Episodic/Chronic Joint disorders and dislocations; trauma-related (20 sources) Tear of medial meniscus of knee; Translations: [Other tear of medial meniscus, current injury, unspecified knee, initial encounter] Onset: 01-10-2017 09-23-2013 Episodic Other connective tissue disease (20 sources) Pain in calf; Translations: [Acquired trigger finger] Onset: 07-22-2014 07-22-2014 Episodic Other connective tissue disease (6 sources) Cramp; Translations: [Cramp and spasm] Onset: 10-28-2014 10-28-2014 Episodic Other connective tissue disease (6 sources) Patellar tendonitis; Translations: [Patellar tendinitis, unspecified knee] 02-13-2013 Episodic Other connective tissue disease (6 sources) Acquired trigger finger; Translations: [Trigger thumb, left thumb] 08-08-2011 Episodic Other non-traumatic joint disorders (20 sources) Knee joint effusion; Translations: [Knee pain] Onset: 10-21-2013 07-01-2014 Episodic Other non-traumatic joint disorders (12 sources) Knee pain; Translations: [Pain in right knee] Onset: 10-21-2013 10-23-2013 Episodic Spondylosis; intervertebral disc disorders; other back problems (20 sources) Lumbar radiculopathy; Translations: [Low back pain] Onset: 01-03-2017 01-05-2017 Episodic Results Test Name Value Interpretation Reference Range Facility ESRon 09-12-2023 Erythrocyte Sed Rate 20 mm/hr Normal 0-20 [facility] Comment on above: Performed By: #### E #### [place] [id number] LABORATORYOrdered By: Cornell Rand on 09-12-2023 ESR Photometric method (Bld) [Velocity] 20 mm/hr Normal 0 - 20 mm/hr AO Man Heme SS Office Visit: f/u candido murray on 01-25-2017 Dietary management education, guidance, and counseling (procedure) yes Invalid Interpretation Code [facility] Work Phone: Documentation of current medications (procedure) Done Invalid Interpretation Code [facility] Work Phone: Protein mass conc Done [facility] Work Phone: Tobacco smoking status NHIS Former smoker [facility] Work Phone: Tobacco use CPHS Former smoker Invalid Interpretation Code [facility] Work Phone: Office Visit: f/u candido murray on 01-11-2017 Dietary management education, guidance, and counseling (procedure) yes Invalid Interpretation Code [facility] Work Phone: Documentation of current medications (procedure) Done Invalid Interpretation Code [facility] Work Phone: Fall risk assessment No Invalid Interpretation Code [facility] Work Phone: Protein mass conc Done [facility] [employer] Work Phone: Tobacco smoking status NHIS Former smoker [facility] Work Phone: Tobacco use [facility] Former smoker Invalid Interpretation Code [facility] Work Phone: Office Visiton 01-10-2017 Dietary management education, guidance, and counseling (procedure) yes Invalid Interpretation Code [facility] Work Phone: Documentation of current medications (procedure) Done Invalid Interpretation Code [facility] Work Phone: Protein mass conc Done [facility] Work Phone: Tobacco smoking status NHIS Former smoker [facility] Work Phone: Tobacco use [facility] Former smoker Invalid Interpretation Code [facility] Work Phone: Office Visiton 01-03-2017 Dietary management education, guidance, and counseling (procedure) yes Invalid Interpretation Code [facility] Work Phone: Tobacco use [facility] Former smoker Invalid Interpretation Code [facility] Work Phone: Microbiology: Culture, Blood (WB)on 12-31-2016 Bacteria culture BCNo growth in 5 days. Invalid Interpretation Code [facility] Work Phone: Microbiology: (P) Culture, B lood (WB)on 12-28-2016 Bacteria culture BCNo growth in 48 hours. Invalid Interpretation Code [facility] Work Phone: Lab Report: CBC W/Diff, Auto matedon 12-27-2016 Basophils/100 leukocytes 0.1 % Invalid Interpretation Code 0-1 [facility] Work Phone: Basophils/100 WBC (Bld) 0.1 % 0-1 [facility] Work Phone: Eosinophils/100 leukocytes 0.0 % Invalid Interpretation Code 0-5 [facility] Work Phone: Eosinophils/100 WBC (Bld) 0.0 % 0-5 [facility] Work Phone: Erythrocyte distribution width Ratio (RBC) 43.9 fL 35.1-43.9 [facility] Work Phone: Erythrocyte distribution width Ratio (RBC) 13.2 % 11.6-14.6 [facility] Work Phone: Erythrocytes (RBC) 3.28 10*6/uL Low 4.2-5.4 [facility] Work Phone: Hematocrit (HCT) 31.2 % Low 37-47 [facility] Work Phone: Hematocrit Volume Fraction (Bld) 31.2 % Low 37-47 [facility] Work Phone: Hemoglobin mass conc (Bld) 10.6 g/dL Low 12.0-15.0 [facility] Work Phone: Immature granulocytes #/vol (Bld) 0.200 % 0.0-0.9 [facility] Work Phone: immature granulocytes, percentage of total cells, blood 0.200 % Invalid Interpretation Code 0.0-0.9 [facility] Work Phone: Lymphocytes 0.62 X10 3/UL Low 0.83-4.51 [facility] Work Phone: Lymphocytes #/vol (Bld) 0.62 X10 3/UL Low 0.83-4.51 [facility] Work Phone: Lymphocytes/100 leukocytes 6.5 % Low 19-41 [facility] Work Phone: Lymphocytes/100 WBC (Bld) 6.5 % Low 19-41 [facility] Work Phone: MCH 32.3 pg High 27.0-32.0 [facility] Work Phone: MCH Entitic mass (RBC) 32.3 pg High 27.0-32.0 [facility] Work Phone: MCHC 34.0 G/GL Invalid Interpretation Code 32-36 [facility] Work Phone: MCHC mass conc (RBC) 34.0 G/GL 32-36 [facility] Work Phone: MCV 95.1 fL Invalid Interpretation Code 81-99 [facility] Work Phone: MCV Entitic volume (RBC) 95.1 fL 81-99 [facility] Work Phone: Monocytes/100 leukocytes 5.7 % Invalid Interpretation Code 0-10 [facility] Work Phone: Monocytes/100 WBC (Bld) 5.7 % 0-10 [facility] Work Phone: neutrophil count, blood 8.3 X10 3/UL High 2.0-7.7 [facility] Work Phone: Neutrophils #/vol (Bld) 8.3 X10 3/UL High 2.0-7.7 [facility] Work Phone: Neutrophils/100 leukocytes 87.5 % High 47-70 [facility] Work Phone: Neutrophils/100 WBC (Bld) 87.5 % High 47-70 [facility] Work Phone: Platelet mean volume Entitic volume (Bld) 9.8 fL 6.2-12.0 [facility] Work Phone: Platelets 192 10*3/mm3 Invalid Interpretation Code 150-450 [facility] Work Phone: Platelets #/vol (Bld) 192 10*3/mm3 150-450 [facility] Work Phone: PMV by Jorge 9.8 fL Invalid Interpretation Code 6.2-12.0 [facility] Work Phone: RBC #/vol (Bld) 3.28 10*6/uL Low 4.2-5.4 [facility] Work Phone: RDW-CA 13.2 % Invalid Interpretation Code 11.6-14.6 [facility] Work Phone: red blood cell distribution width, size density 43.9 fL Invalid Interpretation Code 35.1-43.9 [facility] Work Phone: WBC #/vol (Bld) 9.5 10*3/uL 4.4-11.0 [facility] Work Phone: WBC (Leukocytes) 9.5 10*3/uL Invalid Interpretation Code 4.4-11.0 [facility] Work Phone: Lab Report: Comprehensive Nh tabolic Profilon 12-27-2016 Albumin mass conc 2.5 g/dL Low 3.4-5.0 [facility] Work Phone: Albumin/Globulin mass ratio 0.7 {ratio} Low 0.9-2.4 [facility] Work Phone: Alkaline phosphatase (ALP) 158 U/L High 45-117 [facility] Work Phone: ALP enzyme act/vol (Bld) 158 U/L High 45-117 [facility] Work Phone: ALT enzyme act/vol 402 U/L High 12-78 [facility] Work Phone: Anion gap 6 mmol/L Invalid Interpretation Code 5-15 [facility] Work Phone: Anion gap molar conc 6 mmol/L 5-15 [facility] Work Phone: AST enzyme act/vol 134 U/L High 15-37 [facility] Work Phone: Bilirubin mass conc 0.60 mg/dL Invalid Interpretation Code 0.20-1.00 [facility] Work Phone: Calcium mass conc 8.1 mg/dL Low 8.5-10.1 [facility] Work Phone: Chloride molar conc 106 mmol/L Invalid Interpretation Code 98-107 [facility] Work Phone: CO2 27.0 mmol/L Invalid Interpretation Code 21.0-32.0 [facility] Work Phone: CO2 ppres (BldV) 27.0 mmol/L 21.0-32.0 [facility] gical [employer] Work Phone: Creatinine 87.90 mL/min Invalid Interpretation Code [facility] Work Phone: Creatinine mass conc 0.72 mg/dL Invalid Interpretation Code 0.55-1.02 [facility] Work Phone: eGFR (non-black) 114 mL/min/{1.73_m 2} Invalid Interpretation Code >60 [facility] Work Phone: EST GFR - AA 114 mL/min >60 [facility] Work Phone: GFR/1.73 sq M predicted among non-blacks MDRD vol rate/area (S/P/Bld) 94 mL/min/{1.73_m 2} Invalid Interpretation Code >60 [facility] Work Phone: Globulin 3.4 g/dL Invalid Interpretation Code 2.3-3.5 [facility] Work Phone: Globulin mass conc (S) 3.4 g/dL 2.3-3.5 [facility] Work Phone: Glucose 127 mg/dL High 70-110 [facility] Work Phone: Glucose mass conc 127 mg/dL High 70-110 [facility] Work Phone: Potassium molar conc 3.8 mmol/L Invalid Interpretation Code 3.5-5.1 [facility] Work Phone: Protein mass conc 5.9 g/dL Low 6.4-8.2 [facility] [employer] Work Phone: Sodium molar conc 139 mmol/L Invalid Interpretation Code 136-145 [facility] Work Phone: Urea nitrogen mass conc 5 mg/dL Low 7-18 [facility] Work Phone: Urea nitrogen/Creatinine mass ratio 7.0 RATIO Low 10-20 [facility] Work Phone: Lab Report: Lipaseon 017 LIPASE 182 U/L 73-393 [facility] Work Phone: lipase, serum 182 U/L Invalid Interpretation Code [phone] [facility] Work Phone: Lab Report: Basic Metabolic Profile (BMP)on 12-26-2016 Anion gap molar conc 5 mmol/L 5-15 [facility] Work Phone: Calcium mass conc 8.4 mg/dL Low 8.5-10.1 [facility] [employer] Work Phone: Chloride molar conc 112 mmol/L High 98-107 [facility] Work Phone: CO2 ppres (BldV) 26.0 mmol/L 21.0-32.0 [facility] Joseph [facility] [employer] Work Phone: Creatinine mass conc 0.80 mg/dL 0.55-1.02 [facility] Work Phone: EST GFR - AA 101 mL/min >60 [facility] Work Phone: GFR/1.73 sq M predicted among non-blacks MDRD vol rate/area (S/P/Bld) 83 mL/min/{1.73_m 2} >60 [facility] Work Phone: Glucose mass conc 96 mg/dL 70-110 [facility] [employer] Work Phone: Potassium molar conc 3.4 mmol/L Low 3.5-5.1 [facility] Work Phone: Sodium molar conc 143 mmol/L 136-145 [facility] [employer] Work Phone: Urea nitrogen mass conc 9 mg/dL 7-18 [facility] Work Phone: Urea nitrogen/Creatinine mass ratio 11.2 RATIO 10-20 [facility] [employer] Work Phone: Lab Report: CBC W/Diff, Auto matedon 12-26-2016 Basophils/100 WBC (Bld) 0.4 % 0-1 [facility] Work Phone: Eosinophils/100 WBC (Bld) 2.5 % 0-5 [facility] [employer] Work Phone: Erythrocyte distribution width Ratio (RBC) 14.4 % 11.6-14.6 [facility] [employer] Work Phone: Erythrocyte distribution width Ratio (RBC) 49.8 fL High 35.1-43.9 [facility] Work Phone: Hematocrit Volume Fraction (Bld) 37.4 % 37-47 [facility] Work Phone: Hemoglobin mass conc (Bld) 12.7 g/dL 12.0-15.0 [facility] [employer] Work Phone: Immature granulocytes #/vol (Bld) 0.200 % 0.0-0.9 [facility] Work Phone: Lymphocytes #/vol (Bld) 1.08 X10 3/UL 0.83-4.51 [facility] [employer] Work Phone: Lymphocytes/100 WBC (Bld) 19.2 % 19-41 [facility] [employer] Work Phone: MCH Entitic mass (RBC) 32.4 pg High 27.0-32.0 [facility] [employer] Work Phone: MCHC mass conc (RBC) 34.0 G/GL 32-36 [facility] [employer] Work Phone: MCV Entitic volume (RBC) 95.4 fL 81-99 [facility] Work Phone: Monocytes/100 WBC (Bld) 8.3 % 0-10 [facility] Work Phone: Neutrophils #/vol (Bld) 3.9 X10 3/UL 2.0-7.7 [facility] Work Phone: Neutrophils/100 WBC (Bld) 69.4 % 47-70 [facility] Work Phone: Platelet mean volume Entitic volume (Bld) 9.7 fL 6.2-12.0 [facility] Work Phone: Platelets #/vol (Bld) 172 10*3/mm3 150-450 [facility] Work Phone: RBC #/vol (Bld) 3.92 10*6/uL Low 4.2-5.4 [facility] Work Phone: WBC #/vol (Bld) 5.6 10*3/uL 4.4-11.0 [facility] Work Phone: Lab Report: Comprehensive Nh tabolic Profilon 12-26-2016 Albumin mass conc 2.9 g/dL Low 3.4-5.0 [facility] Work Phone: Albumin/Globulin mass ratio 0.9 {ratio} 0.9-2.4 [facility] Work Phone: ALP enzyme act/vol (Bld) 185 U/L High 45-117 [facility] Work Phone: ALT enzyme act/vol 617 U/L High 12-78 [facility] Work Phone: Anion gap molar conc 6 mmol/L 5-15 [facility] Work Phone: AST enzyme act/vol 357 U/L High 15-37 [facility] Work Phone: Bilirubin mass conc 2.30 mg/dL High 0.20-1.00 [facility] Work Phone: Calcium mass conc 8.1 mg/dL Low 8.5-10.1 [facility] [employer] Work Phone: Chloride molar conc 116 mmol/L High 98-107 [facility] Work Phone: CO2 ppres (BldV) 26.0 mmol/L 21.0-32.0 [facility] [employer] Work Phone: Creatinine mass conc 1.04 mg/dL High 0.55-1.02 [facility] [employer] Work Phone: EST GFR - AA 74 mL/min >60 [facility] [employer] Work Phone: GFR/1.73 sq M predicted among non-blacks MDRD vol rate/area (S/P/Bld) 62 mL/min/{1.73_m 2} >60 [facility] [employer] Work Phone: Globulin mass conc (S) 3.4 g/dL 2.3-3.5 [facility] [employer] Work Phone: Glucose mass conc 91 mg/dL 70-110 [facility]: Potassium molar conc 3.8 mmol/L 3.5-5.1 [facility] [employer] Work Phone: Protein mass conc 6.3 g/dL Low 6.4-8.2 [facility] Work Phone: Sodium molar conc 148 mmol/L High 136-145 [facility] Work Phone: Urea nitrogen mass conc 10 mg/dL 7-18 [facility] [employer] Work Phone: Urea nitrogen/Creatinine mass ratio 9.6 RATIO Low 10-20 [facility] Work Phone: Lab Report: Lipaseon 12-26- 017 LIPASE [id number] U/L High [id number] [facility] Work Phone: Lab Report: Magnesiumon 12-10 Magnesium mass conc 2.3 mg/dL Invalid Interpretation Code 1.8-2.4 [facility] Work Phone: Lab Report: Phosphoruson PHOS 2.6 mg/dL 2.5-4.9 [facility] Surgical [facility] Work Phone: Phosphorus Concentratation-Random 2.6 mg/dL Invalid Interpretation Code 2.5-4.9 [facility] Surgical [facility] Work Phone: Office Visiton 12-18-2015 Dietary management education, guidance, and counseling (procedure) yes Invalid Interpretation Code [facility] Surgical [facility] Work Phone: Documentation of current medications (procedure) Done Invalid Interpretation Code [facility] Surgical [facility] Work Phone: Protein mass conc Done [facility] Joseph gical [facility] Work Phone: Tobacco smoking status NHIS Former smoker [facility] Surgical [facility] Work Phone: Tobacco use HS Former smoker Invalid Interpretation Code [facility] Work Phone: Microbiology: Culture, Body Fluidon 07-15-2014 body fluid culture . Invalid Interpretation Code [facility] Work Phone: CUBF . [facility] Work Phone: Microbiology: Miscellaneous Lab Procedureon 07-04-2014 GE use only - for LinkLogic import when terms are not otherwise specified . Invalid Interpretation Code [facility] Work Phone: MISC LAB TEST . [facility] Work Phone: Microbiology: Crystals, Body Fluidon 07-01-2014 crystals, body fluid Absent Invalid Interpretation Code [facility] Work Phone: CRYSTALS/BF Absent [facility] Work Phone: Replaced Document: Synovial Fluid RBC, WBC AND Diffon 07-01-2014 color, synovial fluid Red Invalid Interpretation Code [facility] Surgical [facility] Work Phone: Erythrocytes (RBC) 0.481 10 6/UL Critically high 0 [facility] Work Phone: source of sample LEFT KNEE Invalid Interpretation Code [facility] Surgical [facility] Work Phone: SYNOVIAL COLOR Red [facility] Work Phone: SYNOVIAL RBC 0.481 10 6/UL Critically high 0 [facility] Work Phone: SYNOVIAL SOURCE LEFT KNEE [facility] Work Phone: SYNOVIAL WBC 1.2840 10 3UL Critically high 0.000-0.002 [facility] Work Phone: WBC, Fluid 1.2840 10 3UL Critically high 0.000-0.002 [facility] Work Phone: Replaced Document: CBC W/Dif f, Automatedon 06-10-2014 Absolute Neut 5.5 X10 3/UL 2.0-7.7 [facility] Work Phone: Absolute Neutrophil count 5.5 X10 3/UL Invalid Interpretation Code 2.0-7.7 [facility] Surgical [facility] Work Phone: Vital Signs Date Time Vital Sign Value Performing Clinician Facility 01-11-2017 14:03-0400 BMI (Body Mass Index) 32.44 kg/m2 Kuldip Murcia MD [facility] Work Phone: 01-11-2017 14:03-0400 BP Diastolic 80 mm[Hg] Kuldip Murcia MD [facility] Work Phone: 01-11-2017 14:03-0400 BP Systolic 110 mm[Hg] Kuldip Murcia MD [facility] Work Phone: 01-11-2017 14:03-0400 Height 162.56 cm Kuldip Murcia MD [facility] Work Phone: 01-11-2017 14:03-0400 Pulse (Heart Rate) 84 /min Kuldip Murcia MD [facility] Work Phone: 01-11-2017 14:03-0400 Respiratory Rate 18 /min Kuldip Murcia MD [facility] Work Phone: 01-11-2017 14:03-0400 Weight 85.73 kg Kuldip Murcia MD [facility] Work Phone: 12-27-2016 07:11-0400 Body surface area Derived from formula 87.90 mL/min Kuldip Murcia MD [facility] Work Phone: 12-26-2016 12:36-0400 Body surface area Derived from formula 79.11 mL/min Kuldip Murcia MD [facility] Work Phone: 12-26-2016 06:32-0400 Body surface area Derived from formula 60.85 mL/min Kuldip Murcia MD [facility] Work Phone: 10-03-2014 09:53-0400 BMI (Body Mass Index) 36.73 kg/m2 Kuldip Murcia MD [facility] Work Phone: 10-03-2014 09:53-0400 Weight 97.07 kg Kuldip Murcia MD [facility] Work Phone: 07-01-2014 10:47-0500 Body Temperature 97.8 [degF] Kuldip Murcia MD [facility] Work Phone: 10-17-2013 09:41-0400 BP Diastolic 78 mm[Hg] Kuldip Murcia MD [facility] Work Phone: 10-17-2013 09:41-0400 BP Systolic 125 mm[Hg] Kuldip Murcia MD [facility] Surgical [facility] Work Phone: 10-17-2013 09:41-0400 Pulse (Heart Rate) 79 /min Kuldip Murcia MD [facility] Surgical [facility] Work Phone: 09-01-2011 10:15-0400 Height 162.56 cm Kuldip Murcia MD [facility] Surgical [facility] Work Phone: Encounters Encounter Date Encounter Type Care Provider Facility Start: 09-12-2023 End: 09-17-[address] MEHDI DOAN MD Facility:B Start: 09-12-2023 End: 09-16-[address] MEHDI DOAN MD [facility] Start: 11-08-2018 End: 11-08-2018 Emergency department patient visit [facility] Procedures Date Procedure Procedure Detail Performing Clinician Start: 01-25-2017 End: 01-25-2017 Dietary management education, guidance, and counseling Kuldip Murcia MD Start: 01-11-2017 End: 01-11-2017 Dietary management education, guidance, and counseling Kuldip Murcia MD Start: 01-10-2017 End: 01-10-2017 Dietary management education, guidance, and counseling Anita Saunders Start: 12-18-2015 End: 12-18-2015 Dietary management education, guidance, and counseling Kuldip Murcia MD Start: 05-30-2014 End: 05-30-2014 Documentation of current medications Milton Zavaleta Start: 05-30-2014 End: 06-08-2014 Smoking cessation education Milton falk Plan of Treatment Date Care Activity Detail Author Start: 03-07-2017 End: 03-07-2017 Appointment Appointment [facility] Work Phone: Start: 02-16-2017 End: 02-16-2017 Ct abdomen&pelvis w/contrast CT Abdomen and pelvis; with contrast material(s) [facility] Work Phone: Start: 01-25-2017 End: 01-25-2017 Appointment Appointment [facility] Work Phone: Start: 01-11-2017 End: 01-11-2017 Appointment Appointment [facility] Work Phone: Start: 01-11-2017 End: 01-11-2017 Ct abdomen&pelvis w/contrast CT Abdomen and pelvis; with contrast material(s) [facility] Work Phone: Start: 01-11-2017 End: 01-12-2017 Dress Designer 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, [address] [place] [address], [id number] [facility] Work Phone: Start: 01-11-2017 End: 01-11-2017 Follow Up Appt 2 weeks Follow Up Appt 2 weeks [facility] Work Phone: Start: 01-11-2017 End: 01-11-2017 Physical Therapy General Physical Therapy General Rehab [facility], [address] [place] [address], [id number] [facility] Work Phone: Start: 01-10-2017 End: 01-10-2017 Appointment Appointment [facility] Work Phone: Start: 01-10-2017 End: 01-10-2017 X-ray exam, knee, 4 or more X-Ray, Knee [facility] Work Phone: Start: 01-04-2017 End: 01-04-2017 Physical Therapy General Physical Therapy General Rehab [facility], [address] [place] [address], [id number] [facility] Work Phone: Start: 01-03-2017 End: 01-03-2017 Appointment Appointment [facility] Work Phone: Start: 01-03-2017 End: 01-05-2017 Mri lumbar spine w/o dye MRI Lumbar Spine [facility] Work Phone: Start: 01-03-2017 End: 01-03-2017 X-ray exam l-s spine bending X-Ray, Spine, Lumbar, complete with bending views [facility] Work Phone: Start: 12-26-2016 End: 12-26-2016 Appointment Appointment [facility] Work Phone: Start: 12-18-2015 End: 12-18-2015 X-ray exam, knee, 4 or more X-Ray, Knee [facility] Work Phone: Start: 04-17-2015 End: 04-17-2015 X-ray exam, knee, 4 or more X-Ray, Knee [facility] Work Phone: Start: 01-08-2015 End: 01-13-2015 Office/outpatient visit, est, level 4 [id number] Ofc Vst, Est Level IV [facility] Work Phone: Start: 07-22-2014 End: 07-22-2014 Extremity study Venous Doppler LE Left [facility] Work Phone: Start: 07-01-2014 End: 07-01-2014 *CBC with Differential *CBC with Differential [facility] Work Phone: Start: 07-01-2014 End: 07-01-2014 Bacteria identified in Body fluid by Culture *CUBF- Culture, Body Fluid [facility] Work Phone: Start: 07-01-2014 End: 07-01-2014 Crystals [type] in Body fluid by Light microscopy *RUBEN - Crystals, Body Fluid [facility] Work Phone: Start: 07-01-2014 End: 07-01-2014 Glucose *GLUBF - Glucose, Body Fluid [facility] Work Phone: Start: 07-01-2014 End: 07-01-2014 Glucose mass conc (Body fld) *GLUBF - Glucose, Body Fluid [facility] Work Phone: Start: 07-01-2014 End: 07-01-2014 Microscopic observation *GS - Gram Stain [facility] Work Phone: Start: 07-01-2014 End: 07-01-2014 Protein in fluid *PROBF - Protein, Body Fluid [facility] Work Phone: Payers Date Payer Category Payer Private Health Insurance [id number] 1975 Unknown [id number] Unknown [id number] Medicaid [id number] Medicare [id number] Social History Date Type Detail Facility Tobacco smoking status No Smoking Status Entered [facility] Sex Assigned At Female [facility] Evaluation + Plan note Note Date & Type Note Facility Evaluation + Plan note No data available for this section [facility] Hospital Discharge instructions Note Date & Type Note Facility Hospital Discharge instructions No data available for this section [facility] Progress note Note Date & Type Note Facility Progress note No data available for this section [facility] Summary Purpose Family History No Family History Records Found No data available for this section No Family History Records Found Advance Directives No Advanced Directives Records FoundNo Advanced Directives Records Found Additional Source Comments INFORMATION SOURCE (unrecogn ized section and content) DATE CREATED AUTHOR 01/21/2019 [facility] DATE CREATED AUTHOR AUTHOR'S ORGANIZ ATION 10/06/2023 [facility] ([place]) Patient Care team informatio n (unrecognized section and content) Care Team Personnel Name: MEHDI DOAN MD Member Role: Primary Care Physician Address: Address: [address] [place] [address] FOR RECORDS PERTAINING TO PATIENTS WHO ARE OR HAVE BEEN ENROLLED IN A CHEMICAL DEPENDENCY/SUBSTANCEABUSE PROGRAM, SOME INFORMATION MAY BE OMITTED. This clinical summary was aggregated from multiple sources. Caution should be exercised in using it in the provision of clinical care. This summary normalizes information from multiple sources, and as a consequence, information in this document may materially change the coding, format and clinical context of patient data. In addition, data may be omitted in some cases. CLINICAL DECISIONS SHOULD BE BASED ON THE PRIMARY CLINICAL RECORDS. [facility] provides no warranty or guarantee of the accuracy or completeness of information in this document.
[2024-04-04 15:27] LABS: Hematocrit 45.5 % (37-47); Hemoglobin 14.8 g/dL (12.0-15.0); Mean Corp Hgb Conc 32.5 g/dL (32-36); Mean Corpuscular Hgb 31.2 pg (27.0-32.0); Mean Platelet Vol. 10.1 fl (6.2-12.0); Platelet Count 270 K/mm3 (150-450); RBC Distribution Width CV 12.5 % (11.6-14.6); RBC Distribution Width SD 44.3 fl (35.1-43.9); Red Blood Count 4.74 M/mm3 (4.2-5.4); White Blood Count 5.9 K/mm3 (4.4-11.0)
[2024-04-04 15:38] LABS: ALB/GLOB Ratio 0.9 RATIO (0.9-2.4); AST(SGOT) 26 U/L (15-37); Alanine Aminotransfer ALT/SGPT 44 U/L (13-56); Albumin, Serum 3.9 g/dL (3.2-5.0); Alkaline Phosphatase 116 U/L (45-117); Anion Gap 4 (5-15); BUN 14 mg/dL (7-18); BUN/Creat Ratio 16.6 RATIO (10-20); Calcium,Total 9.8 mg/dL (8.5-10.1); Chloride 109 mmol/L (98-107); Creatinine, Serum 0.84 mg/dL (0.55-1.02); EST Glomerular Filtration Rate 76 mL/min (>60); Est Glom Filt Rate - Afr Amer 92 mL/min (>60); Globulin 4.3 g/dL (2.2-4.2); Glucose 95 mg/dL (74-106); Potassium 4.1 mmol/L (3.5-5.1); Protein, Total 8.2 g/dL (6.4-8.2); Sodium Level 140 mmol/L (136-145)
== END | disposition home or self-care (01) ==
PROVIDERS: PCP Family Medicine; Referring Provider Family Medicine; Visit Provider Family Medicine
DX: R10.32 Left lower quadrant pain (principal)
CPT/HCPCS: 36415; 74019; 80053; 85027

== ENCOUNTER → 2024-07-26 | Outpatient (CLI) | payer MEDICARE, SELFPAY ==
--- NOTE | 2024-07-26 12:10 | RAD_ITS ---
EXAM: XR Right Ribs and AP Chest, 3 or More Views CLINICAL INDICATION: TECHNIQUE: Frontal and oblique views of the right ribs and frontal view of the chest. COMPARISON: No relevant prior studies available. FINDINGS: LUNGS AND PLEURAL SPACES: Unremarkable. No consolidation. No pneumothorax. HEART: Unremarkable. No cardiomegaly. MEDIASTINUM: Unremarkable. Normal mediastinal contour. BONES/JOINTS: Unremarkable. No displaced rib fractures. RAD/Ribs Unil 2V No CXR IMPRESSION: No displaced rib fractures. Reading Location[facility]
--- NOTE | 2024-07-26 12:10 | RAD_ITS ---
EXAM: XR Chest, 2 Views CLINICAL INDICATION: TECHNIQUE: Frontal and lateral views of the chest. COMPARISON: No relevant prior studies available. FINDINGS: LUNGS AND PLEURAL SPACES: Unremarkable. No consolidation. No pneumothorax. HEART: Unremarkable. No cardiomegaly. MEDIASTINUM: Unremarkable. Normal mediastinal contour. BONES/JOINTS: Unremarkable. No acute fracture. RAD/Chest PA and Lateral IMPRESSION: No acute cardiopulmonary process. Reading Location[facility]
== END | disposition home or self-care (01) ==
LOC: RAD 12:02
PROVIDERS: PCP Family Medicine; Referring Provider Family Medicine; Visit Provider Family Medicine
DX: R07.81 Pleurodynia (principal)
CPT/HCPCS: 71046; 71100

== ENCOUNTER 2024-12-16 23:42 | Emergency (ER) | payer MEDICARE, SELFPAY ==
[2024-12-16 23:43] VITALS: BP 132/91; PULSE 71; RESP 18; TEMP 36.9; O2SAT 100; BMI 29.8
[2024-12-17 00:43] VITALS: BP 117/65; PULSE 58; RESP 16; O2SAT 100
[2024-12-17] MEDS: DiphenhydrAMINE 50 MG/ML Syringe IV (00:43)
[2024-12-17] MEDS: Famotidine 200 MG/20 ML MDV 20 MG in 0.9% Normal Saline (Pres. free 8 ML 300 MG IV (00:43)
[2024-12-17 00:57] VITALS: PULSE 56; RESP 18
[2024-12-17 01:00] VITALS: BP 124/75; PULSE 56; RESP 16; O2SAT 98
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
[2024-12-17 01:37] VITALS: BP 128/72; PULSE 62; RESP 18; TEMP 36.9; O2SAT 99
[2024-12-17] MEDS: Albuterol Sulfate 8 gm Inhaler (60 puffs) 2 PUFF INHALATION (02:01)
== END 2024-12-17 02:02 | disposition home or self-care (01) ==
PROVIDERS: Emergency Provider Emergency Medicine; PCP Family Medicine; Visit Provider Emergency Medicine
DX: J68.0 Bronchitis and pneumonitis due to chemicals, gases, fumes and vapors (principal); F41.1 Generalized anxiety disorder; T78.40XA Allergy, unspecified, initial encounter; Z90.710 Acquired absence of both cervix and uterus; M79.7 Fibromyalgia; I10 Essential (primary) hypertension; Z87.891 Personal history of nicotine dependence; K21.9 Gastro-esophageal reflux disease without esophagitis
CPT/HCPCS: 94640; 96374; 96375; 96376; 99283; A4216

== ENCOUNTER → 2025-01-07 | Outpatient (CLI) | payer MEDICARE, SELFPAY ==
--- NOTE | 2025-01-07 09:37 | RAD_ITS ---
PROCEDURE: CHEST PA AND LATERAL 01/07/2025 REASON FOR EXAM: COUGH, SOB TECHNIQUE: CHEST PA AND LATERAL COMPARISON: 07/26/2024 FINDINGS: Normal heart size. Well inflated lungs. No consolidation, effusion, or pneumothorax. RAD/Chest PA and Lateral IMPRESSION: No acute chest findings. Reading Location: [facility]
== END | disposition home or self-care (01) ==
LOC: MTRAD 09:37
PROVIDERS: PCP Family Medicine; Referring Provider Family Medicine; Visit Provider Family Medicine
DX: J68.0 Bronchitis and pneumonitis due to chemicals, gases, fumes and vapors (principal)
CPT/HCPCS: 71046

== ENCOUNTER → 2025-01-20 | Outpatient (CLI) | payer MEDICARE, SELFPAY | END | disposition home or self-care (01) | LOC: PSN 09:24 | PROVIDERS: PCP Family Medicine; Referring Provider Family Medicine; Visit Provider Family Medicine | DX: J98.4 Other disorders of lung (principal) | CPT/HCPCS: 94060; 94726; 94729 ==

== ENCOUNTER → 2025-01-24 | Outpatient (CLI) | payer MEDICARE, SELFPAY ==
--- NOTE | 2025-01-24 15:44 | CT_ITS ---
PROCEDURE: CHEST WITH CONTRAST 01/24/2025 REASON FOR EXAM: DIFFICULTY BREATHING TECHNIQUE: CHEST WITH CONTRAST Coronal and Sagittal reconstruction series were provided. CONTRAST: Isovue 370 VOLUME: 98 mL One or more dose reduction techniques were used (e.g., Automated exposure control, adjustment of the mA and/or kV according to patient size, use of iterative reconstruction technique). RADIATION DOSE SUMMARY: CTDlvol: 23 mGy DLP: 365 mGycm FINDINGS: Inspection of the lung parenchyma demonstrates no consolidation, mass, edema or fibrosis. Evaluation of the mediastinum and vascular structures demonstrates normal thoracic aorta. No pulmonary embolus. No pericardial effusion. Upper abdomen unremarkable. No adenopathy. CT/Chest WITH Contrast IMPRESSION: Coronary artery calcification (CAC) is absent No acute abnormality Reading Location[facility]
== END | disposition home or self-care (01) ==
LOC: CT 15:43
PROVIDERS: PCP Family Medicine; Referring Provider Family Medicine; Visit Provider Family Medicine
DX: J98.4 Other disorders of lung (principal)
CPT/HCPCS: 71260; Q9967

== ENCOUNTER → 2025-02-05 | Outpatient (CLI) | payer MEDICARE, SELFPAY ==
--- NOTE | 2025-02-05 08:05 | BI_ITS ---
EXAM: SCRN MAMM (CAD)W/SHYAM BILAT DATE: 02/05/2025 CLINICAL HISTORY: F, Age 50 y/o , SCREENING FOR BREAST CANCER No family history. TECHNIQUE: SCRN MAMM (CAD)W/SHYAM BILAT COMPARISON: Prior exam(s) dated January 29, 2024.. FINDINGS: TISSUE DENSITY: There are scattered areas of fibroglandular density. Bilateral Breast Mammographic Findings: No significant masses, calcifications or other abnormalities are identified. No suspicious masses, areas of developing architectural distortion, or suspicious calcifications. There has been no significant interval change. BI/SCRN MAMM (CAD)W/SHYAM BILAT IMPRESSION: Stable examination. OVERALL FINAL ASSESSMENT BI-RADS 1: NEGATIVE. RECOMMENDATION: Routine annual follow-up in 1 Year A letter with findings and recommendations will be mailed to the patient. Reading Location: [id number]
== END | disposition home or self-care (01) ==
LOC: OPBI 08:04
PROVIDERS: PCP Family Medicine
DX: Z12.31 Encounter for screening mammogram for malignant neoplasm of breast (principal)
CPT/HCPCS: 77063; 77067

== ENCOUNTER → 2025-02-12 | Outpatient (CLI) | payer MEDICARE, SELFPAY ==
--- NOTE | 2025-02-12 08:30 | RAD_ITS ---
EXAM: Air-contrast esophagram barium swallow. CLINICAL HISTORY: Chest pain. Choking on liquids. COMPARISON: None TECHNIQUE: The patient ingested barium. Fluoroscopic imaging of the esophagus was obtained. Dose report: 39 seconds of fluoroscopy. 21.0 mGy. FINDINGS: The esophagus is unremarkable. No evidence of esophageal obstruction. No mass lesion is seen. No evidence of gastroesophageal reflux. The patient ingested a 12 mm tablet of barium without any difficulty. RAD/Esophagus Dual Contrast IMPRESSION: Unremarkable esophagram barium swallow. Reading Location: [place] [id number]
== END | disposition home or self-care (01) ==
LOC: RAD 08:19
PROVIDERS: PCP Family Medicine; Referring Provider Family Medicine; Visit Provider Family Medicine
DX: R13.10 Dysphagia, unspecified (principal); R10.13 Epigastric pain
CPT/HCPCS: 74221